=== PATIENT | male | born 1955 | race Caucasian/White ===

== ENCOUNTER 2016-09-08 21:34 | Emergency (ER) | payer MEDICAID, MEDICARE ==
[~2016-09-08 21:34] MED LIST: ACET500L27 PO; ASCO100089 PO; ASPI325T32 PO; CYAN50006 SL; DIAZ10TA3 PO; ESCI5TAB10 PO; FERR-74 PO; GABA-504 PO; ONDA8TAB7 SL; OXYC-474 PO; OXYM30SP18 NS; POLY17PO2 PO; PRED5DRO6 BOTH_EYES; PROC-4 PO; RANI150C4 PO; SODI51CR8 DENTAL; ZINC50TA56 PO; [UNRECOGNIZED DRUG - CODE] PO; calcium carbonate PO
[2016-09-16] MEDS ORDERED: LORA1TAB PO (11:26)
[2016-09-26] MEDS ORDERED: DIAZ5TAB3 PO (17:56)
[2016-10-07] MEDS ORDERED: MS15TCR PO (12:36)
[2016-10-07] MEDS ORDERED: OXYC-474 PO (12:36)
[2016-10-23] MEDS ORDERED: ACET-171 PO (08:38)
[2016-12-01] MEDS ORDERED: MORP30CA17 PO (13:49)
[2016-12-29] MEDS ORDERED: MED PLUS 2.0 PO (09:10)
[2016-12-29] MEDS ORDERED: DIF100A PO (09:10)
[2017-02-03] MEDS ORDERED: HYDR4TAB PO (14:22)
[2017-02-13] MEDS ORDERED: OMEP20CA11 PO (09:13)
== END 2016-09-08 22:01 | disposition left against medical advice (07) ==
LOC: SED 21:34
DX: Z53.29 Procedure and treatment not carried out because of patient's decision for other reasons (principal)

== ENCOUNTER 2016-12-07 10:04 | Inpatient (IN) | payer MEDICARE, MEDICAID ==
[~2016-12-07] VITALS: Ht 182.9 cm; Wt 67.0 kg
[~2016-12-07 10:04] MED LIST changes: +ACET-171 PO; -ACET500L27 PO; -CYAN50006 SL; -DIAZ10TA3 PO; +DIAZ5TAB3 PO; -FERR-74 PO; +MORP30CA17 PO; -calcium carbonate PO
[2016-12-07 10:09] VITALS: BP 118/76; PULSE 101; RESP 22; O2SAT 97
--- NOTE | 2016-12-07 10:21 | ED.REPORT ---
HPI-General Illness Date of Service Dec 07, 2016 ED Provider: Dr. Hillman Pt is a 61 year old male on chemo therapy with a hx of throat cancer presenting to the ED complaining of lightheadedness onset today. Associated symptoms include severe throat pain onset 5 days ago, hematemesis (a couple tablespoons each episode, about 18 episodes total),constipation, decreased appetite, worsening abdominal pain and indigestion. Denies cough, black or tarry stool. Pt reports that he fell several times today due to the lightheadedness, but denies any injury. He states that he has been unable to clear his throat. He describes the emesis as half dark red or brown, and half bile. Nursing Notes Stated Complaint: SICK SINCE RADIATION ON 12/03/16 Chief Complaint: General Complaint Nursing Notes Reviewed: Yes Allergies: Coded Allergies: No Known Allergies (Unverified , 12/07/16) Scheduled Ascorbic Acid (Vitamin C) 1,000 Mg Tab.chew 1,000 MG PO DAILY Aspirin (Aspirin) 325 Mg Tablet 325 MG PO DAILY Diazepam (Diazepam) 5 Mg Tablet 10 MG PO HS Escitalopram Oxalate (Escitalopram Oxalate) 5 Mg Tablet 5 MG PO DAILY Gabapentin (Gabapentin) 400 Mg Capsule 400 MG PO HS Morphine Sulfate ER (Morphine Sulfate ER) 30 Mg Capsule 30 MG PO BID Multivits-Min/FA/K/Lycopene (One-A-Day Men's 50+ Tablet) 1 Each Tablet 1 TABLET PO DAILY Polyethylene Glycol 3350 (Polyethylene Glycol 3350) 17 Gm Powd.pack 17 GM PO DAILY Prednisolone Acetate (Prednisolone Acetate) 5 Ml Drops.susp 5 ML BOTH_EYES QID Ranitidine (Ranitidine) 150 Mg Capsule 150 MG PO BID Sodium Fluoride (Denta 5000 Plus) 51 Gm Cream..g. 51 GM DENTAL DAILY Zinc Amino Acid Chelate (Zinc) 50 Mg Tablet 50 MG PO DAILY Scheduled PRN Acetaminophen (Acetaminophen) 500 Mg Tablet 500 MG PO Q6H PRN PRN For Pain Ondansetron ODT (Zofran ODT) 8 Mg Tablet 8 MG SL Q8H PRN PRN For Nausea Oxycodone (Roxicodone) 5 Mg Tablet 5 MG PO Q6H PRN PRN For Pain Oxymetazoline HCl (Nasal [place] Sinus) 30 Ml [place] 30 ML NS PRN For Congestion Prochlorperazine Maleate (Compazine) 10 Mg Tablet 10 MG PO Q4H PRN PRN For Nausea General Time Seen by MD: 10:21 Chief Complaint Other (Lightheadedness) Hx Obtained From: Patient Arrived By: Walk-in Sudden in Onset?: No Onset Occurred: 5 days ago Symptom Duration: Since onset Location: : Abdomen: Neck (Throat) Quality: Painful Severity: Current: Moderate Severity: Maximum: Severe Recent Healthcare: Recent doctor visit, Recent hospitalization Similar Sx Previous: No Past Medical History Past Medical History Notes: Oncology: Dr. Homer Aceves for radiation oncology Dr. 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 Physical Exam Vital Signs Vital Signs Date Time Temp Pulse Resp B/P Pulse Ox O2 Delivery O2 Flow Rate FiO2 12/07/16 12:34 37.2 15 140/64 100 Room Air 12/07/16 10:09 36.7 101 22 118/76 97 Room Air Initial VS: Reviewed Head / Eyes: Atraumatic, Normocephalic, PERRL Neck: Supple, Non-tender, Full range of motion Respiratory: Breath sounds normal, Clear to auscultation, No respiratory distress Cardiovascular: Regular rate & rhythm, Heart sounds normal, Intact distal pulses Neurologic: Alert, Oriented, Nonfocal Psychiatric: Mood/affect normal, Behavior normal, Normal thought content General/Constitutional: Awake, Alert Distress / Hydration: Positive: Distress moderate Appearance / Presentation: Positive: Cachectic, Pale Thin ENT: Atraumatic, Airway patent Oropharynx no active bleeding or obvious mass. Abdomen: Atraumatic, Soft, No guarding, No rebound Tenderness/Guarding/Rebound: Positive: Tender epigastric Skin: Warm, Dry, Intact Radiation sequela on neck. Interpretation & Diagnostics Lab Results Interpretation Result Diagram: 12/07/16 1305 12/07/16 1110 Test 12/07/16 11:10 12/07/16 13:05 White Blood Count 5.8th/mm3 (3.8-10.1) Red Blood Count 4.09mil/mm3 (4.40-5.80) Mean Corpuscular Volume 88.8fL (81-100) Mean Corpuscular Hemoglobin 31.3pg (27.0-35.0) Mean Corpuscular Hemoglobin Concent 35.3% (32.0-37.0) Red Cell Distribution Width 15.7% (12.3-15.4) Platelet Count 184bil/L (150-400) Neutrophils (%) (Auto) 84.3% (40-74) Lymphocytes (%) (Auto) 6.5% (14-46) Monocytes (%) (Auto) 8.6% (4-12) Eosinophils (%) (Auto) 0.2% (0-5) Basophils (%) (Auto) 0.2% (0-3) Prothrombin Time 12.1sec (8.1-12.5) Prothromb Time International Ratio 1.13ratio Sodium Level 135mEq/L (134-144) Potassium Level 3.1mEq/L (3.5-5.2) Chloride Level 93mEq/L (97-108) Carbon Dioxide Level 20mmol/L (18-29) Blood Urea Nitrogen 27mg/dL (8-27) Creatinine 0.96mg/dL (0.76-1.27) Estimat Glomerular Filtration Rate 84mL/min (>59) Glucose Level 151mg/dL (60-99) Calcium Level 10.1mg/dL (8.5-10.1) Magnesium Level 1.8mg/dL (1.6-2.6) Total Bilirubin 1.0mg/dL (0.0-1.2) Aspartate Amino Transf (AST/SGOT) 14U/L (0-50) Alanine Aminotransferase (ALT/SGPT) 12U/L (0-44) Alkaline Phosphatase 59U/L (25-160) Total Protein 7.8g/dL (6.4-8.4) Albumin 4.6g/dL (3.4-5.0) Hold Coleman Top Tube Received (Received) Hemoglobin 11.8g/dL (13.8-17.2) Hematocrit 33.9% (41.0-50.0) ECG Interpretation ECG Interpretation: RBBB. Time: 10:58 Interpreted by: ED physician Normal ECG Interpretation: Normal rate (92), Normal sinus rhythm X-Ray Chest Interpretation Chest Xray Interpretation: IMPRESSION: No acute process. Dictated by: Marques Brower M.D. on 12/07/2016 at 10:53 View: Portable, 1 view Interpretation / Wet Read by: Interpret - Radiologist CT C-Spine Interpretation IMPRESSION: 1. Diffuse submucosal edema, consistent with pharyngitis, presumably secondary to radiation therapy. 2. No change in asymmetry of the tongue base, consistent with posttreatment sequelae. Dictated by: Marques Brower M.D. on 12/07/2016 at 12:53 Study type: CT with contrast Interpretation / Wet Read by: Interpret - Radiologist Re-Eval/Medical Decision Med Decision/Clinical Course Patient currently undergoing chemotherapy and radiation with multiple episodes of hematemesis in the last day, symptoms could represent gastritis and upper GI bleeding. PPI drip initiated, patient is hemodynamically stable, GI consulted and agrees to see the patient. Will be admitted. Time of Eval: 12:45 Patient Status: Condition improved Re-Evaluation/Progress Note: Discussed plan for admission. Pt understands and agrees. Consultation #1: Referral / Consult Name: Filipe Ngo MD Call Returned at: 13:05 Note: Oncology. Agrees with plan for admission. Consultation #2: Referral / Consult Name: Hari Leigh MD Call Returned at: 13:24 Diesel Service Apprentice: Agrees with plan Note: GI. Give the pt a GI cocktail, treat the constipation, continue PPI ggt, oral GI cocktail or sucralfate liquid as needed. Will plan to see the pt in the morning and discuss the possibility of endoscopy. Consultation #3: Referral / Consult Name: Nasim Randhawa DO Consulted With: Hospitalist Call Returned at: 14:00 Diesel Service Apprentice: Will see patient, Agrees with plan, Accepts admit Counseled Regarding: Diagnosis, Lab results, Need for follow-up, When/why to return to ED Discharge & Departure Primary Impression: Hematemesis Disposition: ADMITTED TO HOSPITAL Discharge Condition All VS Reviewed: Yes Condition: Improved Referrals: Justo Bedoya MD (PCP) Chivo Valadez MD Scribe Attestation Portions of this note were transcribed by Geni Patricio. I, Dr. Hillman personally performed the history, physical exam and medical decision-making; I reviewed and confirmed the accuracy of the information in the transcribed note. Signed by: Tabby Armstrong, 12/07/2016 at 1400. copies to: Justo Bedoya MD; Chivo Valadez MD, Timothy S DO Dec 07, 2016 10:21 GENI PATRICIO Dec 07, 2016 10:31
[2016-12-07] MEDS ORDERED: 0.9% Sodium Chloride 1,000 ML IV ONE (10:33)
[2016-12-07] MEDS ORDERED: Pantoprazole 4 mg/mL 10 mL Inj IVPUSH ONE (10:35)
[2016-12-07] MEDS ORDERED: Pantoprazole Inj 80 MG, Pharmacy To Mix 1 EA in 0.9% Sodium Chloride 80 ML IV ONE ×2 (10:35)
--- NOTE | 2016-12-07 10:55 | DRSVH ---
PROCEDURE: X-RAY CHEST ONE VIEW, PORTABLE ([id number]) INDICATIONS: vomiting TECHNIQUE: One view of the chest was acquired. COMPARISON: None. FINDINGS: Surgical changes and devices: Left arm PICC is present, tip of which is in the mid SVC. Lungs and pleura: No pleural effusions or pneumothorax. Lungs are clear. Mediastinum: Mediastinal contours appear normal. Heart size is normal. Bones and chest wall: No suspicious bony lesions. Overlying soft tissues appear unremarkable. IMPRESSION: No acute process. Dictated by: Marques Brower M.D. on 12/07/2016 at 10:53 Approved by: Marques Brower M.D. on 12/07/2016 at 10:54
[2016-12-07] MEDS: Ondansetron 2 mg/mL 2 mL Inj IVPUSH PRN ×5 (11:11→20:31)
[2016-12-07 11:29] LABS: BASOPHILS % (AUTO) 0.2 % (0-3); EOSINOPHILS % (AUTO) 0.2 % (0-5); MONOCYTES % (AUTO) 8.6 % (4-12); Mean Corpuscular Hemoglobin 31.3 pg (27.0-35.0); Mean Corpuscular Volume 88.8 fL (81-100); NEUTROPHILS % (AUTO) 84.3 % (40-74); Platelet Count 184 bil/L (150-400)
[2016-12-07 11:51] LABS: INR 1.13 ratio
[2016-12-07 11:57] LABS: Magnesium 1.8 mg/dL (1.6-2.6)
[2016-12-07 12:34] VITALS: BP 140/64; RESP 15; O2SAT 100
--- NOTE | 2016-12-07 12:57 | DRSVH ---
PROCEDURE: CT NECK SOFT TISSUES WITH CONTRAST ([id number]) INDICATIONS: neck pain, vomiting blood, throat CA TECHNIQUE: After the administration of intravenous contrast, 3.0 mm axial sections acquired from the sella to th e aortic arch. Additional oblique axial 3.0 mm sections acquired through the pharynx. 3 mm thick co aleena reformats were generated. For radiation dose reduction, the following was used: automated exp osure control. COMPARISON: [facility], CT, CT NECK SOFT TISSUE W CON, 10/28/2016, 15:41. FINDINGS: Image quality: Excellent. Lymph nodes: No enlarged lymph nodes seen throughout the neck. Vessels: Visualized vasculature appears patent. Neck spaces: Submucosal low density is seen within the oropharynx and hypopharynx, increased from th e prior examination. The oropharynx, nasopharynx, and pharynx are otherwise within normal limits. The vocal cords, false vocal cords, pyriform sinuses and epiglottis are within normal limits. There is a symmetrical defect involving the right tongue base, as before. Extramucosal spaces appear unremarkab le. Glands: The parotid and submandibular glands appear normal. Thyroid gland is within normal limits. Miscellaneous: Visualized brain and orbits appear normal. Lung apices appear clear. Moderate apica l emphysema is present bilaterally. Superficial soft tissues appear normal. Bones: No suspicious bony lesions. Visualized sinuses and mastoids appear unremarkable. IMPRESSION: 1. Diffuse submucosal edema, consistent with pharyngitis, presumably secondary to radiation therapy. 2. No change in asymmetry of the tongue base, consistent with posttreatment sequelae. Dictated by: Marques Brower M.D. on 12/07/2016 at 12:53 Approved by: Marques Brower M.D. on 12/07/2016 at 12:56
[2016-12-07] MEDS ORDERED: Promethazine Inj 25 MG in 0.9% Sodium Chloride-Pha MIX 100 ML IV ONE (13:30)
[2016-12-07] MEDS ORDERED: MORP-33 PO (13:43)
--- NOTE | 2016-12-07 14:21 | PCM.HPMED ---
Subjective Date of Service Dec 07, 2016 Primary Provider: Admitting Physician: Primary Care Physician: Justo Bedoya MD Attending Physician: Admit Status: From the Emergency Department Chief Complaint: Dizziness, decrease by mouth intake, hematemesis History of Present Illness: 61 yo male with a significant hx of stage LISSETTE squamous cell carcinoma of the right oropharynx now presenting sx of lightheadedness, n/v - hematemesis that began about 1 week ago with episodes dark brown/red vomitus - also with dysphagia and hx of GERD. Now noting worsening GERD sx over the last 1 week - no specific cp/sob/f/sick contacts/diarrhea/ no urinary sx. No prev issues with GERD only rarely used meds as needed. Does have hx of constipation and takes miralax intermittently. Lost 75 lbs in 6 mos prior to dx of throat cancer - last chemo/radiation was last week with Dr. Coronel, undergoing weekly cisplatin and taxol after his induction chemo. recently having worsenign sx of odynophagia, mucositis, and wt loss and Dr. Coronel inc MS contin to 30mg BID. Also report episodes of fall while attempting to make it to bathroom without head injury or state injuries. no alcohol/tob/illicit rx use. Review of Systems: complete ROS unremarkable unless stated in HPI Allergies Coded Allergies: No Known Allergies (Unverified , 12/07/16) Home Medications Reviewed and ordered Ascorbic Acid (Vitamin C) 1,000 Mg Tab.chew 1,000 MG PO DAILY Aspirin (Aspirin) 325 Mg Tablet 325 MG PO DAILY Diazepam (Diazepam) 5 Mg Tablet 10 MG PO HS Escitalopram Oxalate (Escitalopram Oxalate) 5 Mg Tablet 5 MG PO DAILY Gabapentin (Gabapentin) 400 Mg Capsule 400 MG PO HS Morphine Sulfate ER (Morphine Sulfate ER) 30 Mg Capsule 30 MG PO BID Multivits-Min/FA/K/Lycopene (One-A-Day Men's 50+ Tablet) 1 Each Tablet 1 TABLET PO DAILY Polyethylene Glycol 3350 (Polyethylene Glycol 3350) 17 Gm Powd.pack 17 GM PO DAILY Prednisolone Acetate (Prednisolone Acetate) 5 Ml Drops.susp 5 ML BOTH_EYES QID Ranitidine (Ranitidine) 150 Mg Capsule 150 MG PO BID Sodium Fluoride (Denta 5000 Plus) 51 Gm Cream..g. 51 GM DENTAL DAILY Zinc Amino Acid Chelate (Zinc) 50 Mg Tablet 50 MG PO DAILY Scheduled PRN Acetaminophen (Acetaminophen) 500 Mg Tablet 500 MG PO Q6H PRN PRN For Pain Ondansetron ODT (Zofran ODT) 8 Mg Tablet 8 MG SL Q8H PRN PRN For Nausea Oxycodone (Roxicodone) 5 Mg Tablet 5 MG PO Q6H PRN PRN For Pain Oxymetazoline HCl (Nasal [place] Sinus) 30 Ml [place] 30 ML NS PRN For Congestion Prochlorperazine Maleate (Compazine) 10 Mg Tablet 10 MG PO Q4H PRN PRN For Nausea PMH stage LISSETTE squamous cell carcinoma of the right oropharynx GERD Depression Anxiety Psoriasis Hypertension Chronic back pain Surgical History Corneal transplant Right knee arthroscopy Medial meniscus to me Chondroplasty of patellofemoral joint Left cubital tunnel release Anterior transposition of the ulnar nerve Family History Father, heart disease, rheumatoid arthritis Mother: Diabetes Siblings: Stroke hypertension, rheumatoid arthritis Social History Hx Alcohol Use: No Hx Substance Use: No Hx Tobacco Use: No Smoking Status: Former Smoker Exam Vital Signs Vital Sign - Last Date Time Temp Pulse Resp B/P Pulse Ox O2 Delivery O2 Flow Rate FiO2 12/07/16 12:34 37.2 15 140/64 100 Room Air 12/07/16 10:09 101 Exam Gen.: No acute distress, alert and oriented, pleasant HEENT: Normocephalic/atraumatic, pupils equal round react to light and accommodation,EOMI, Anicteric sclera, erythematous mucosa, dry blood noted Neck: No JVD, lymphadenopathy, no thyromegaly Cardiovascular: No rubs clicks murmurs or gallops, regular rate Respiratory: Clear to auscultation bilaterally no wheezes rales or rhonchi, good historian effort GI: Soft, mild epigastric tenderness, no rigidity or guarding, epigastric regional clicking/mass noted with palpation no rebound tenderness Extremities: No clubbing cyanosis or edema, warm, sensation intact Neurologic, muscle strength 5 out of 5 in upper and lower extremities bilaterally, creatinine nerves II-12 grossly intact, DTRs 2+ at patellar and brachial radialis and bicipital, sensation intact Psych: Mood appropriate, affect appropriate, no tangential thought or speech Lab and Diagnostics Result Diagram: 12/07/16 1305 12/07/16 1110 12-lead ECG Right bundle-branch block, no acute ischemic changes Assessment & Plan 61 yo man with stage IV right oropharyngeal squamous cell carcinoma, hypertension, depression, and anxiety who presented to the ED with hematemesis, weakness and decreased oral intake for last 5-7 days #Hematemesis/dysphagia likely secondary to history of Right Oropharyngeal squamous cell carcinoma - Dr Ngo consulted from ER, patient's oncologist is Dr Coronel - plan for symptomatically management with recommendations from Dr. Leigh of GI to start protonix strip - GI to evaluate for possible endoscopy tomorrow - NPO for now given failed speech swallow eval - Pain control with IV Dilaudid, can restart Roxicodone and MS Contin when tolerating by mouth meds - This is lidocaine, when necessary nausea medications and pain control as above - Monitor oxygen saturations, keep oxygenation above 92% with supplemental oxygen as needed. Please contact physician if becoming hypoxic #Depression - Will resume home Escitalopram when tolerating by mouth #HTN, chronic. -No home BP meds currently being taken, will consider when necessary Pain Evaluation: Other (actually titrating pain) GI Prophylaxis: Proton Pump Inhibitor VTE Prophylaxis Indicated: Contraindicated (bleeding) Resuscitation Status: CPR: Attempt Resuscitation Time spent 60 minutes spent with admission and evaluation, greater than 50% time spent face -to-face counseling Nasim Randhawa DO Dec 07, 2016 14:21
[2016-12-07] MEDS ORDERED: Polyethylene Glycol (PEG) 17 Gm Powder PO PRN (14:30)
[2016-12-07] MEDS ORDERED: Alum-Mag Hydrox-Simeth 30 mL Suspension PO PRN (14:30)
[2016-12-07 14:37] VITALS: BP 128/63; PULSE 84; RESP 15; O2SAT 98
--- NOTE | 2016-12-07 14:53 | NUR ---
Admit Pt arrived from ED at 1453 via stretcher. Pt A&Ox3 and able to transfer to the bed SBA. Pt's pain is a 10/10 in his throat. Pt is nauseated and received medication in the OR and states that it feels better. Pt on RA and Protonix is currently running thru his PICC. Admit RN did the admit and med req.
[2016-12-07 14:58] VITALS: BP 137/69; PULSE 72; RESP 18; O2SAT 99
[2016-12-07] MEDS ORDERED: HYDROmorphone 0.5 mg/0.5 mL iSecure Syringe IVPUSH PRN (15:25)
[2016-12-07] MEDS ORDERED: Potassium Chloride Inj 40 MEQ in Dextrose 5% 250 ML IV ONE (15:50)
--- NOTE | 2016-12-07 16:01 | NUR ---
RN SWALLOW EVAL Pt failed rn swallow eval as he had a difficult time swallowing the applesauce. He stated "it feels like it is caught in my throat." MD aware of failure of swallow eval however ordered ice chips to help relieve discomfort and burning sensation is pts mouth. Pt states that he was given magic mouth in the ER and it did not work. Care conts
[2016-12-07] MEDS: Dextrose 5% 0.9% NaCl 1,000 ML IV SCH (16:15)
[2016-12-07] MEDS: PrednisoLONE 1% 1 mL Ophthalmic Suspension BOTH_EYES SCH ×2 (16:49→21:30)
--- NOTE | 2016-12-07 17:08 | NUR ---
STEPHANIE explained and signed. Copy of STEPHANIE and Medicare self administered medication information given to pt.
[2016-12-07] MEDS: HYDROmorphone 0.5 mg/0.5 mL iSecure Syringe IVPUSH PRN (20:01)
[2016-12-07 20:28] VITALS: BP 126/68; PULSE 73; RESP 16; O2SAT 97
[2016-12-07] MEDS: Pantoprazole Inj 80 MG in 0.9% Sodium Chloride 80 ML IV SCH (20:45)
[2016-12-07 20:47] VITALS: PULSE 68
--- NOTE | 2016-12-07 23:05 | NUR ---
Telemetry Pt had 8 beats of v tach. Reported to MD via cookpage. Also reported that pt had a potassium rider this evening. Will cont to monitor
[2016-12-08] VITALS (13 sets, daily range): BP systolic 93–149; BP diastolic 49–83; PULSE 57–83; RESP 14–20; O2SAT 95–100
[2016-12-08] MEDS: HYDROmorphone 0.5 mg/0.5 mL iSecure Syringe IVPUSH PRN ×6 (00:26→21:27)
[2016-12-08 00:44] LABS: BASOPHILS % (AUTO) 0.5 % (0-3); EOSINOPHILS % (AUTO) 0.8 % (0-5); MONOCYTES % (AUTO) 13.6 % (4-12); Mean Corpuscular Hemoglobin 31.4 pg (27.0-35.0); Mean Corpuscular Volume 90.9 fL (81-100); NEUTROPHILS % (AUTO) 72.3 % (40-74); Platelet Count 141 bil/L (150-400)
--- NOTE | 2016-12-08 01:31 | NUR ---
Pt able to void 200cc of bernadine urine Denies lightheadedness. States that he feels "Much better." BP 149/81 Will cont to monitor
[2016-12-08] MEDS: Ondansetron 2 mg/mL 2 mL Inj IVPUSH PRN ×3 (03:19→22:12)
[2016-12-08] MEDS: Dextrose 5% 0.9% NaCl 1,000 ML IV SCH (03:25)
[2016-12-08 03:36] LABS: BASOPHILS % (AUTO) 0.7 % (0-3); EOSINOPHILS % (AUTO) 1.9 % (0-5); MONOCYTES % (AUTO) 12.6 % (4-12); Mean Corpuscular Hemoglobin 31.5 pg (27.0-35.0); NEUTROPHILS % (AUTO) 69.9 % (40-74); Platelet Count 122 bil/L (150-400)
[2016-12-08] MEDS: Pantoprazole Inj 80 MG in 0.9% Sodium Chloride 80 ML IV SCH ×2 (06:09→16:30)
[2016-12-08] MEDS: PrednisoLONE 1% 1 mL Ophthalmic Suspension BOTH_EYES SCH ×4 (07:22→21:33)
[2016-12-08] MEDS ORDERED: Potassium Chloride Inj 40 MEQ in Dextrose 5% 250 ML IV ONE (07:40)
[2016-12-08] MEDS: Polyethylene Glycol (PEG) 17 Gm Powder PO SCH (08:26)
[2016-12-08] MEDS ORDERED: Sodium Chloride LOK Flush 10 mL Syringe IVFLUSH PRN ×2 (09:00)
--- NOTE | 2016-12-08 10:27 | NUR ---
Case Management: IMM given and explained to pt at 10:20. Betty HUGHES RN
--- NOTE | 2016-12-08 10:38 | NUR ---
Evaluation completed. Please go to "Notes" then click on "Assessments and Notes" (bottom left corner of screen). Then select appropriate discipline tab on top of screen.
--- NOTE | 2016-12-08 10:56 | NUR ---
Evaluation completed. Please go to "Notes" then click on "Assessments and Notes" (bottom left corner of screen). Then select appropriate discipline tab on top of screen.
--- NOTE | 2016-12-08 11:19 | PCM.PNMED ---
Subjective Date of Service Dec 08, 2016 Subjective pt still with considerable 9-10/10 pain this AM, unable to swallow - moderately tolerating ice chips for soothing - no fevers, chills, chest pain. Dilaudid overnight not sufficient for pain, we will add a fentanyl 25 g patch today and have palliative care see the patient well. Call Dr. Mittal, regarding bout steroids for pharyngeal inflammation/comfort Exam Vital Signs Vital Sign - Last Date Time Temp Pulse Resp B/P Pulse Ox O2 Delivery O2 Flow Rate FiO2 12/08/16 10:52 36.8 68 20 130/70 99 Room Air Intake and Output 12/07/16 12/07/16 12/08/16 Cumulative From/Thru 15:00 23:00 07:00 12/07/16 10:09 - 12/08/16 05:43 Intake Total 1000 ml 465 ml 1004 ml 2469 ml Output Total 200 ml 200 ml Balance 1000 ml 465 ml 804 ml 2269 ml Intake Oral 0 ml 0 ml IV Total 1000 ml 465 ml 1004 ml 2469 ml Output Urine Total 200 ml 200 ml Exam Gen.: No acute distress, alert and oriented, pleasant HEENT: Normocephalic/atraumatic, pupils equal round react to light and accommodation,EOMI, Anicteric sclera, erythematous mucosa, dry blood noted Neck: No JVD, lymphadenopathy, no thyromegaly Cardiovascular: No rubs clicks murmurs or gallops, regular rate Respiratory: Clear to auscultation bilaterally no wheezes rales or rhonchi, good historian effort GI: Soft, mild epigastric tenderness, no rigidity or guarding, epigastric regional clicking/mass noted with palpation no rebound tenderness Extremities: No clubbing cyanosis or edema, warm, sensation intact Neurologic, muscle strength 5 out of 5 in upper and lower extremities bilaterally, creatinine nerves II-12 grossly intact, DTRs 2+ at patellar and brachial radialis and bicipital, sensation intact Psych: Mood appropriate, affect appropriate, no tangential thought or speech IVs and Medications Medications Reviewed: Medications were reviewed in detail Lab and Diagnostics Result Diagram: 12/08/1631412/08/16314 12-lead ECG Right bundle-branch block, no acute ischemic changes Assessment & Plan 61 yo man with stage IV right oropharyngeal squamous cell carcinoma, hypertension, depression, and anxiety who presented to the ED with hematemesis, weakness and decreased oral intake for last 5-7 days #Hematemesis/dysphagia likely secondary to history of Right Oropharyngeal squamous cell carcinoma with subsequent radiation mucositis - Dr Ngo consulted from ER, patient's oncologist is Dr Coronel - plan for symptomatically management with recommendations from Dr. Leigh of GI to start protonix strip - GI to evaluate for possible endoscopy today, appreciate recommendations - NPO for now given failed speech swallow eval - Pain control with IV Dilaudid, can restart Roxicodone and MS Contin when tolerating by mouth meds - until then had added fentanyl 25 g and appreciate palliative care management, consulted today - Monitor oxygen saturations, keep oxygenation above 92% with supplemental oxygen as needed. Please contact physician if becoming hypoxic #Depression - Will resume home Escitalopram when tolerating by mouth #HTN, chronic. At goal presently -No home BP meds currently being taken, will consider when necessary GI Prophylaxis: Proton Pump Inhibitor VTE Mechanical Devices: Intermittant Pneumatic CD Resuscitation Status: CPR: Attempt Resuscitation Time spent 30 minutes spent with evaluation and management including coordination of care Attending Statement Disposition: Inpatient given likely staying greater then 2 midnights given severity of symptoms, discharged pending clinical improvement and stabilization of by mouth intake Nasim Randhawa DO Dec 08, 2016 11:19
--- NOTE | 2016-12-08 12:41 | NUR ---
Palliative care note D/A: Referral for palliative care services received today from DR. Randhawa for goals of care and symptom management. Note that pt has a spouse Luisana Moreno at [phone] and dtr Tarsha Moreno at [phone]. Chart notes indicate a great deal of contact with pt dtr but none to little with spouse. [facility] Pt spouse is essentially no participatory in pt care. She works at [employer] and there has been some concern among the medical team that she may be involved with pt/understand his diagnosis and needs. 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 There is some concern that pt may not understand all issues presented to him, which is most likely impacted by his nutritional status. Note that pt had experienced symptoms for about one year prior to dx of throat cancer around Aug 2016. He was subsisting on milk and Ensure alone and had lost about 75 pds. Pt regained some weight and now, according to oncology notes, has lost 15 pds since initiation of chemo/rad trx. Pt has recently been receiving speech therapy in acute care, who notes that he has experienced limited ability to swallow for two weeks and has also, during the same time period, been choking on water. This is felt to be a side effect of his radiation treatment. '' Pt dtr lives in [place] and attempts to help support her father as much as she can. There are past notes indicating referrals to [facility] for this pt but Antony notes that family/pt has not been able to follow through. Dr. Gallardo to consult. P: Palliative care to follow. Isaura MARIO, [facility]
--- NOTE | 2016-12-08 14:22 | PCM.CONPAL ---
Date of Service Dec 08, 2016 Date of Hospital Admission: Dec 07, 2016 at 14:19 Date of Palliative Consult: Dec 08, 2016 Requesting Provider: Nasim Randhawa DO Comment: Onologist- Dr. Coronel, RD-onc-Dr. Aceves, PCP Dr. Bedoya Reason Palliative Care Consult: Pain, Other Symptoms, Goals of Care Discussion Hospital Unit @time of consult: Orthopedic/Surgical Care Palliative Care Recommendation Summary of palliative recommendations: -Symptom management (Pain/other) PAIN- will increase his hydromorphone dosing. Will need to wait 1-2 days to determine if fentanyl patch will be adequate. Will increase his gabapentin to 600 mg HS. INSOMNIA-Will try adding mirtazapine 15 mg HS. Continue on his escitalopram which at this point is low dose. VMW-[id number]-qy above. CONSTIPATION- start regular dosing of senna and or miralax STOMATITIS-unclear regarding swab-- no results and can't find order. Cosnider treating empirically with antiviral. -DPOA/Advanced Directives/POLST-DPOAHC =daughter Tarsha. He does not think his has the capacity and this is supported by Antony WHITE-oncology -Family/emotional support-limited. he is isolated by his anx/depression/panic -Spiritual support-not interested Patient Goals: 1. Patient wants to be told the truth about his/her illness, even if it is unpleasant. YES 2. Patient would like to be told prognosis when it can be predicted, to better guide treatment decisions.YES 3. Patient would choose quality of life over quantity of life. YES. 4. Patient would request that comfort care take priority over cognitive/mental confusion. YES Problems: End of Life Preferences He wishes FULL CODE status but states if truly EOL he is not interested in being prolonged with CPR/VENT Goals of Care He identifies wanting aggressive treatment including chemo radiation which he states he is only 1/2 way through He identifies that there are still things he wants to do but acknowledges his anx/depression is limiting him on this Disposition His plan is to go home but hopefully with better pain control. Resuscitation Status Resuscitation Status: CPR: Attempt Resuscitation POLST Updates/Changes Previous POLST?: No . Symptom management: Depression, Anxiety, Pain, Constipation Pt History History of Present Illness PALLIATIVE CARE CONSULTATION Request from Dr. Randhawa, Patient states his insurance company also recommended consultation. Onc- Dr. Coronel Rad-onc- Dr. Aceves PCP- Dr. Bedoya 61 yo patient with progressive sore throat and odynophagia with eval in July noting a large tonsillar mass. 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 He has lost 75-80 # since onset of sx in july. He has started chemo and rad tx with very good results but has been having worsened pain and continued weight loss. He has also had worsened constipation which he had been treating with miralax but with his acute illness of dehydration and pain issues he had stopped his usual miralax. To his knowledge his malignancy is curable and he is counting on this. He was treated with MS ER 15 mg BID that was increased to 30 mg BID about 1 week ago. He states he took 2 of the 15 mg doses on 2 separate occasions and noted no change- in pain or SE. he was feeling more poorly with more pain and nausea and he feared the meds making that worse so his essentially did not go up on his dose.He was switched to fentanyl patch this AM so unclear if any benefit yet..He knows he has active stomatitis. He states this was swabbed. Other sx: constipation depression/anx/panic and insomnia. States doesn't go out of the house and in general doesn't like people. Traz caused nightmares. Gets only a few hours of sleep from diazepam 10 mg HS but his is able to manage home and nothing "past that". He identifies his daughter Tarsha Moreno as DPOAHC ([phone]). She lives and works in [place] and travels extensively. He is unaware if he has an AD but he thinks he might.He is not aware of what it might say. He is interested in all aggressive measures as long as he has chance of decent recovery. He has 1 son in [place] and his has a son in [place]. Past Medical History Significant PMH Noted: HTN depression/anx/panic chronic insomnia GERD LBP Ty knee surgery exsmoker- 1/2 PPD and stopped 10 yrs ago exETOH- did drink 1+ 6pk per day- stopped 20 yrs ago FMHX- PGF- of colon CA age 55 Bro-1 and sister- 1 M- breast CA Social History Occupation: disabled-he states due to toxic exposure but I suspect due to anx/depression. Social Support: daughter. Living Situation: Lives with his of 44 yrs. Often Tarsha spends the night. Responsive Patient Symptoms Pain (minimum): Moderate Pain (maximium): Severe *Requires 72 Hour Followup Tiredness/Fatigue: Moderate Depression: Moderate Anxiety: Moderate Anorexia: Moderate (drinks ensure as much as tolerated to minimize weight loss) Shortness of Breath: None Constipation controlled with miralax Palliative Performance Scale PPS Patient Status: Current PPS Ambulation: Full, Reduced PPS Activity: Unable to do most activity PPS Self-Care: Full Self Care PPS Intake: Normal or reduced Performance Scale: 90% Allergy Allergies Reviewed: Yes (trazodone- severe nightmares) Medications Current Medications: Current Medications Ondansetron HCl 4 mg Q15M PRN IVPUSH Last administered on 12/07/16 13:45; Admin Dose 4 MG; Start 12/07/16 at 10:35; Stop 12/07/16 at 14:28; Status DC Morphine Sulfate 4 mg Q15MIN PRN IVPUSH Last administered on 12/07/16 12:16; Admin Dose 4 MG; Start 12/07/16 at 10:35; Stop 12/07/16 at 14:28; Status DC Diazepam 10 mg HS PO Last administered on 12/07/16 20:32; Admin Dose 10 MG; Start 12/07/16 at 21:00 Gabapentin 400 mg HS PO Last administered on 12/07/16 20:31; Admin Dose 400 MG; Start 12/07/16 at 21:00 Polyethylene Glycol 17 gm DAILY PO; Start 12/08/16 at 08:30 Prednisolone Acetate 1 drop QID BOTH_EYES Last administered on 12/08/16 12:54; Admin Dose 1 DROP; Start 12/07/16 at 16:30 Al Hydrox/Mg Hydrox/Simethicone 30 ml Q6H PRN PO Last administered on 12/08/16 00:32; Admin Dose 30 ML; Start 12/07/16 at 14:30 Ondansetron HCl 4 to 8 mg Q4H PRN IVPUSH Last administered on 12/08/16 07:22; Admin Dose 8 MG; Start 12/07/16 at 14:30 Senna 17.2 mg BID PRN PO; Start 12/07/16 at 14:30; Stop 12/08/16 at 08:36; Status DC Polyethylene Glycol 17 gm DAILY PRN PO; Start 12/07/16 at 14:30 Acetaminophen 650 mg Q4H PRN PO; Start 12/07/16 at 14:30 Morphine Sulfate 1-2 mg Q4H PRN IV; Start 12/07/16 at 14:30; Stop 12/07/16 at 15: 22; Status DC Hydromorphone HCl 0.5 mg 0.5 mg Q4H PRN IVPUSH Last administered on 12/07/16 15 :35; Admin Dose 0.5 MG; Start 12/07/16 at 15:25; Stop 12/07/16 at 19:52; Status DC Pantoprazole/ Sodium Chloride 100 ml @ 10 mls/hr Q10H IV Last administered on 06:09; Admin Dose 10 MLS/HR; Start 12/07/16 at 20:00 Lidocaine HCl as above Q4 PRN PO; Start 12/07/16 at 15:50 Dextrose/Sodium Chloride 1,000 ml @ 100 mls/hr Q10H IV Last administered on 12/08 03:25; Admin Dose 100 MLS/HR; Start 12/07/16 at 15:50; Stop 12/08/16 at 11: 49; Status DC Hydromorphone HCl 1 mg Q4H PRN IVPUSH Last administered on 12/08/16 13:41; Admin Dose 1 MG; Start 12/07/16 at 19:52 Fentanyl 1 patch Q3D TOPICAL Last administered on 12/08/16 09:04; Admin Dose 1 PATCH; Start 12/08/16 at 08:35 Senna 17.2 mg BID PO; Start 12/08/16 at 20:30 Scheduled Ascorbic Acid (Vitamin C) 1,000 Mg Tab.chew 1,000 MG PO DAILY Aspirin (Aspirin) 325 Mg Tablet 325 MG PO DAILY Diazepam (Diazepam) 5 Mg Tablet 10 MG PO HS Escitalopram Oxalate (Escitalopram Oxalate) 5 Mg Tablet 5 MG PO DAILY Gabapentin (Gabapentin) 400 Mg Capsule 400 MG PO HS Morphine Sulfate ER (Morphine Sulfate ER) 30 Mg Capsule 30 MG PO BID Multivits-Min/FA/K/Lycopene (One-A-Day Men's 50+ Tablet) 1 Each Tablet 1 TABLET PO DAILY Polyethylene Glycol 3350 (Polyethylene Glycol 3350) 17 Gm Powd.pack 17 GM PO DAILY Prednisolone Acetate (Prednisolone Acetate) 5 Ml Drops.susp 5 ML BOTH_EYES QID Ranitidine (Ranitidine) 150 Mg Capsule 150 MG PO BID Sodium Fluoride (Denta 5000 Plus) 51 Gm Cream..g. 51 GM DENTAL DAILY Zinc Amino Acid Chelate (Zinc) 50 Mg Tablet 50 MG PO DAILY Scheduled PRN Acetaminophen (Acetaminophen) 500 Mg Tablet 500 MG PO Q6H PRN PRN For Pain Ondansetron ODT (Zofran ODT) 8 Mg Tablet 8 MG SL Q8H PRN PRN For Nausea Oxycodone (Roxicodone) 5 Mg Tablet 5 MG PO Q6H PRN PRN For Pain Oxymetazoline HCl (Nasal Calcium Sinus) 30 Ml Calcium 30 ML NS PRN For Congestion Prochlorperazine Maleate (Compazine) 10 Mg Tablet 10 MG PO Q4H PRN PRN For Nausea Objective Findings Exam Vital Sign - Last Date Time Temp Pulse Resp B/P Pulse Ox O2 Delivery O2 Flow Rate FiO2 12/08/16 10:52 36.8 68 20 130/70 99 Room Air Intake and Output 12/07/16 12/07/16 12/08/16 Cumulative From/Thru 15:00 23:00 07:00 12/07/16 10:09 - 12/08/16 05:43 Intake Total 1000 ml 465 ml 1004 ml 2469 ml Output Total 200 ml 200 ml Balance 1000 ml 465 ml 804 ml 2269 ml Intake Oral 0 ml 0 ml IV Total 1000 ml 465 ml 1004 ml 2469 ml Output Urine Total 200 ml 200 ml General: Alert/Oriented x3, Other (Occasionally tearful, ) HEENT: PERRLA, EOMI, Scleral Anicteric, Mucous Membranes Dry, Other (mucosal ulcers soft palate) Heart: Regular Rate/Rhythm Lungs: Clear to Auscultation Abdomen: Soft Neuro: Cranial Nerve 3-12 Intact, Other (appropriate, decisional, gait not tested) Extremities: No Edema Lab/Diagnostics Lab and Imaging results reviewed in detail in EMR. Patient/Family Conference Members Present Family Members Present patient Medical Team Members Present? Juana ALVARADO PC Discussion/Goals of Care Discussion FAMILY UNDERSTANDING OF DISEASE: He believes his malignancy is curable and at this time is interested in aggressive treatment. DISEASE PROGRESSION/EVIDENCE OF DECLINE: He has had improvement in his cancer per Dr. Coronel's note. Concern is his dysphagia and wt loss but his albumin protein remain in normal range. SYMPTOM BURDEN: Pain is major issue now probably complicated by what I presume to be herpetic stomatitis. GOALS: He is hoping for a cure and back to his prior level of independence. HOPES/WORRIES: If pain is not able to be dealt with-he is not sure how long he will continue this. Time spent Total time 65 minutes; >50% face to face with patient and/or family, providing counselling regarding plans and recommendations, and in care coordination with his/her medical teams. I also spent an additional [ ] minutes counseling for advanced care planning with the patient/the patients family/the surrogate decision maker. copies to: Justo Bedoya MD; Chivo Valadez MD, Deborah A MD Dec 08, 2016 14:22
[2016-12-08] MEDS ORDERED: Lactated Ringer's 1,000 ML IV ONE (14:47)
--- NOTE | 2016-12-08 15:09 | NUR ---
NUTRITION ASSESSMENT: ASSESS: 61 YO M admitted for upper GI bleed and throat cancer. Per notes, pt has lost 75-80 lb over the past year mainly due to throat pain/decreased appetite. Per notes, pt was able to gain some weight back and then lost the weight again while undergoing chemo and radiation. Wt has ranged for 68 kg - 78 kg over the past 4 months per EMR review. ST has evaluated pt and placed him on a [place] thick Full Liquid diet. PO intake is 25% X 1 Meal. Palliative care is following. PMHX: right oropharyngeal CA, HTN, Depression LABS: Reviewed. K+ 3.3, Cr 0.70, Glu 114, Alb 3.8. MEDS: Reviewed. GI: 0 BM recorded CURRENT WTS: 67 kg. UBW 114.5kg (230lbs) DIET: Full liquid, [place] thick. PO 25% x 1 meal. EST. 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 NUTRITION INTERVENTION: 1.) Diet per ST 2.) Continue to send Chocolate Ensure all trays. 3.) Continue to encouraged possible PEG placement to help pt maintain nutritional status. MONITOR / EVAL: PO intake, weights, labs, nutrition status, POC. Continue to monitor per high nutrition risk guidelines.
--- NOTE | 2016-12-08 16:02 | NUR ---
Social Work-initial assessment: Data & Assessment: See initial assessment. Pt is a 61 y/o male who was admitted on 12/07/16 for Upper GI bleed and throat cancer per H&P. Pt's insurance is [employer] and PCP is Justo Bedoya MD. EMR Reviewed. Pt's readmission score is 5-high risk. SW met with pt to discuss discharge planning, SW role explained and initial assessment complete. Pt is alert and oriented x3. Pt resides at home with spouse in a two story home with three steps to enter and 14 steps on the inside where pt remains independent with basic ADLs. Pt has had HH with [facility] in the past. Patient has no SNF history. Pt has states that he has completed DPOA/ advanced directive and SW requested a copy. Pt has no watermaster care or VA benefits. SW discussed HH services and penitentiary care planning and patient chose [facility] if it is needed upon discharge. SW will follow patient to r/o HH. Pt's family to provide transport home at discharge. SW provided phone number and plan on white board in room. SW will continue to follow. Plan: Pt to likely discharge home no needs vs. home with HH. Pt's family is supportive. SW will transport home via POV. SW will continue to follow. Memo Ceballos LMSW, KEISHA Addendum: 12/08/16 at 1612 by MEMO CEBALLOS SS Amended: Links added.
--- NOTE | 2016-12-08 17:01 | PCM.HPANE ---
Patient Data Date of Service: Dec 08, 2016 Surgeon Admitting Provider:Nasim Randhawa DO Attending Provider:Nasim Randhawa DO Primary Care Physician:Justo Bedoya MD Other Provider: Reason for Visit Upper Gi Bleed, Throat Ca Ht/WT & BMI Height (Feet): 6 Height (Inches): 0.00 Weight (Kilograms): 67.000 Body Mass Index 20.00 Allergies Coded Allergies: No Known Allergies (Unverified , 12/07/16) Past Anesthesia History Anesthesia History: Denies:: Anesthesia Reactions, Fam Anesthesia Reaction, Fam Malignant Hypertherm, Malignant Hyperthermia Diabetes History Hx Diabetes?: No MRSA MRSA: No Medications Blood Thinner: Aspirin Hypertension Medication: No Reported Medications Morphine Sulfate ER 30 Mg [id number] Mg PO BID #60 CAPSULE Ref 0 12/01/16 Acetaminophen 500 Mg Anzvxc057 Mg PO Q6H PRN For Pain 10/23/16 Diazepam 5 Mg Muvgmj28 Mg PO HS #30 TABLET Ref 4 09/26/16 Prochlorperazine Maleate (Compazine)10 Mg Xgbkud88 Mg PO Q4H PRN For Nausea #30 TABLET Ref 4 08/26/16 Ondansetron ODT (Zofran ODT)8 Mg Tablet8 Mg SL Q8H PRN For Nausea #30 TABLET Ref 4 08/26/16 Prednisolone Acetate 5 Ml Drops.susp5 Ml BOTH_EYES QID 08/24/16 Gabapentin 400 Mg Jnnllhj505 Mg PO HS Ref 0 08/24/16 Sodium Fluoride (Denta 5000 Plus)51 Gm Cream..g.51 Gm DENTAL DAILY 08/24/16 Oxycodone (Roxicodone)5 Mg Tablet5 Mg PO Q6H PRN For Pain #60 TABLET Ref 0 08/24/16 Escitalopram Oxalate 5 Mg Tablet5 Mg PO DAILY 30 Days Ref 0 08/24/16 Oxymetazoline HCl (Nasal Many Sinus)30 Ml Spray30 Ml NS PRN For Congestion 08/24/16 Multivits-Min/FA/K/Lycopene (One-A-Day Men's 50+ Tablet)1 Each Tablet1 Tablet PO DAILY 08/24/16 Ascorbic Acid (Vitamin C)1,000 Mg Tab.chew1,000 Mg PO DAILY Ref 0 08/24/16 Zinc Amino Acid Chelate (Zinc)50 Mg Alqnkr71 Mg PO DAILY 08/24/16 Polyethylene Glycol 3350 17 Gm Powd.pack17 Gm PO DAILY 08/24/16 Aspirin 325 Mg Qftgea733 Mg PO DAILY #1 BOTTLE 08/24/16 Ranitidine 150 Mg Bqjwlvc127 Mg PO BID Ref 0 08/24/16 Discontinued Reported Medications Morphine Sulfate ER 30 Mg Htswqn37 Mg PO BID #60 12/07/16 Morphine Sulfate ER (MS Contin)15 Mg Tablet.er15 Mg PO BID #60 TABLET Ref 0 10/07/16 History History of ENT Problems?: Yes HEENT History: Positive for:: Cataracts Sinus Problem Denies:: Dysphagia (odynophagia) Other HEENT Pertinent History: Pt states he has throat cancer and its so painful, its hard to swallow, he has no saliva. Hx of Heart Problems?: No Cardiovascular History: Positive for:: Hypertension Denies:: Cardiac Surgery Chest Pain Congestive Heart Failure Coronary Artery Disease Edema Heart Murmur Irregular Heartbeat Pacemaker Thrombophlebitis Hx of Respiratory Problem?: Yes Respiratory History: Positive for:: Hemoptysis Denies:: Asthma COPD Chest Surgery Dyspnea Emphysema Pneumonia Tuberculosis Use of Inhalers / NEBS Other Resp Pertinent History: productive cough x1yr now Hx Neurologic Problems?: No Neurological History: Positive for:: Dizziness Headaches Denies:: Alzheimer's Disease CVA Dementia Parkinson's Disease Seizures TIA Hx of GI Problems?: Yes Gastrointestinal History: Positive for:: Diverticulitis Gastroesphageal Reflux (chronic) Hiatal Hernia Denies:: Gastrointestinal Bleeding Heartburn Hepatitis Rectal Bleeding Other GI Pertinent History: hematemesis Hx of Problems?: No Genitourinary History: Denies:: HX of Hemodialysis Kidney Stones Urinary Tract Infection HX of Peritoneal Dialysis: No Male Hx: Denies:: Prostate Problems Scrotal Mass Testicular Surgery Hx Musculoskeletal Problems?: Yes Musculoskeletal History: Positive for:: Back Injury Joint Replacement (knee) Musculoskeletal Trauma Hx of Psycho/Social Problems?: Yes Psycho Social History: Positive for:: Anxiety ("bigtime" ) Hx Depression (Lately it has been horrible ) Denies:: Bipolar Disorder Suicide Attempt Other Psych Pertinent History: Serious problem with depression recently Hx Surgeries?: Yes (bilat knee scopes, elbows, ) Hx Any Other Health Problems?: No Other History: Positive for:: Cancer (throat) Hospitalization (knees, elbows, wrists) Denies:: Thyroid Disease History Blood Transfusions: Denies:: Blood Transfuse Reaction Blood Transfusions Hx Diabetes: No Hx Alcohol Use: NoHx Substance Use: No Smoking Status: Former Smoker Have You Smoked inLast 12 mo: No Stop/Bang Treated for Sleep Apnea?: No Do You Have a CPAP Machine?: No S-Snoring: Do You Snore Loudly: No T-Tired: feel tired, fatigued: Yes O-Obsered: Observed not breath: No P-Blood Pressure: treated: No B- Body Mass Index > 35 kg/m2: No A- Age over 50: Yes N- Neck Large Circumference: No G- Gender Male: Yes YENI Total Score: 3 YENI Risk Assessment: Low Risk, <3 Yes YENI Category 2: Yes Risk Assessment Category Category 1A: Patient has history of documented sleep apnea, and HAS NOT received any narcotic, sedative or anesthesia administration during this stay. Category 1B: Patient has history of documented sleep apnea, and HAS received any narcotic , sedative or anesthesia administration during this stay Category 2: Patient has SUSPECTED Obstructive Sleep Apnea, and HAS received any narcotic , sedative or anesthesia administration during this stay. Category 3: Patient has SUSPECTED Obstructive Sleep Apnea and HAS NOT received narcotic, sedative or anesthesia administration during this stay. Category 4: Outpatient in Procedural Areas with known sleep apnea or who screen positive for High Risk via the STOP/BANG questionnaire. Exam Exam Vital Signs Vital Signs Date Time Temp Pulse Resp B/P Pulse Ox O2 Delivery O2 Flow Rate FiO2 12/08/16 14:04 37.1 74 20 140/75 99 Room Air 12/08/16 10:52 36.8 68 20 130/70 99 Room Air General Appearance: Alert, Oriented X3, Cooperative, No Acute Distress HEENT/AIRWAY: MP 3, Neck Movement (from), Mouth Opening (3), Other (<3) Lungs: Diminished Heart: Exam Unremarkable, Regular Rate/Rhythm, Normal S1, Normal S2, No Murmurs /Rubs/Gallops Meds/Labs/Diagnostics Admission Meds Current Medications Diazepam (Valium) 10 mg HS PO Last administered on 12/07/16 20:32; Start at 21:00 Gabapentin 400 mg 400 mg HS PO Last administered on 12/07/16 20:31; Start at 21:00; Stop 12/08/16 at 14:03; Status DC Pantoprazole 80 mg/Sodium Chloride 100 ml @ 10 mls/hr Q10H IV Last administered on 12/08/16 16:30; Start 12/07/16 at 20:00 Potassium Chloride/Dextrose/ Water (Potassium Chloride Inj/D5W) 270 ml @ 90 mls /hr ONCE ONCE IV Last administered on 12/08/16 09:03; Start 12/08/16 at 07:40; Stop 12/08/16 at 10:39; Status DC Fentanyl 1 patch 1 patch Q3D TOPICAL Last administered on 12/08/16 09:04; Start 12/08/16 at 08:35 Lactated Ringer's (Lr) 1,000 ml @ 10 mls/hr Q24H ONCE IV Last administered on 12/08/16 16:34; Start 12/08/16 at 14:47; Stop 12/09/16 at 14:46 Labs Test 12/07/16 11:10 12/07/16 15:05 12/08/16 03:15 Prothrombin Time 12.1sec (8.1-12.5) Prothromb Time International Ratio 1.13ratio Hold Coleman Top Tube Received (Received) Magnesium Level 1.8mg/dL (1.6-2.6) White Blood Count 2.7th/mm3 (3.8-10.1) Red Blood Count 3.33mil/mm3 (4.40-5.80) Hemoglobin 10.5g/dL (13.8-17.2) Hematocrit 30.3% (41.0-50.0) Mean Corpuscular Volume 91.0fL (81-100) Mean Corpuscular Hemoglobin 31.5pg (27.0-35.0) Mean Corpuscular Hemoglobin Concent 34.7% (32.0-37.0) Red Cell Distribution Width 16.0% (12.3-15.4) Platelet Count 122bil/L (150-400) Neutrophils (%) (Auto) 69.9% (40-74) Lymphocytes (%) (Auto) 14.9% (14-46) Monocytes (%) (Auto) 12.6% (4-12) Eosinophils (%) (Auto) 1.9% (0-5) Basophils (%) (Auto) 0.7% (0-3) Sodium Level 137mEq/L (134-144) Potassium Level 3.3mEq/L (3.5-5.2) Chloride Level 100mEq/L (97-108) Carbon Dioxide Level 23mmol/L (18-29) Blood Urea Nitrogen 21mg/dL (8-27) Creatinine 0.70mg/dL (0.76-1.27) Estimat Glomerular Filtration Rate 121mL/min (>59) Glucose Level 114mg/dL (60-99) Calcium Level 8.9mg/dL (8.5-10.1) Total Bilirubin 0.8mg/dL (0.0-1.2) Aspartate Amino Transf (AST/SGOT) 11U/L (0-50) Alanine Aminotransferase (ALT/SGPT) 8U/L (0-44) Alkaline Phosphatase 46U/L (25-160) Total Protein 6.1g/dL (6.4-8.4) Albumin 3.8g/dL (3.4-5.0) Plan Impression Patient chart reviewed, patient interviewed and anesthestic plan with risks, benefits, and alternatives discussed, and informed consent obtained. ASA Physical Status: ASA4 Life Threatening Anesthetic Plan: TIVA Bene/Risks/Altern/Consents: Yes HP Complete Prior to Induction: Yes Bret Brown MD Dec 08, 2016 17:00
[2016-12-08 18:54] LABS: BASOPHILS % (AUTO) 0.5 % (0-3); EOSINOPHILS % (AUTO) 3.3 % (0-5); MONOCYTES % (AUTO) 12.7 % (4-12); Mean Corpuscular Hemoglobin 31.5 pg (27.0-35.0); Mean Corpuscular Volume 92.9 fL (81-100); NEUTROPHILS % (AUTO) 66.1 % (40-74); Platelet Count 125 bil/L (150-400)
--- NOTE | 2016-12-08 18:58 | PCM.ANEP1 ---
Post Anesthesia Phase 1 PACU Phase 1 Assessment Date of Service: Dec 08, 2016 Vital Signs Vital Signs Date Time Temp Pulse Resp B/P Pulse Ox O2 Delivery O2 Flow Rate FiO2 12/08/16 18:20 36.7 64 20 142/74 99 Room Air 12/08/16 17:58 70 16 99/54 100 Room Air 12/08/16 17:44 37.2 83 16 93/49 95 Room Air 12/08/16 16:58 36.9 74 14 143/83 98 Room Air 12/08/16 14:04 37.1 74 20 140/75 99 Room Air Anesthetic Administered: TIVA Level of Alertness: Awake, talking PAZ's with Equal Strength: No Pain: No Pain Scale Score: 0 Nausea or Vomiting: No Oxygen Delivery: Nasal Cannula Lungs: Diminished Bret Brown MD Dec 08, 2016 18:58
--- NOTE | 2016-12-08 18:59 | PCM.ANEP2 ---
Post Anesthesia Evaluation ASA/CMS Post Anesthesia VS in Patient's Normal Range?: Yes Resp Stable; Airway Patent?: Yes CV Function & Hydration Stable: Yes Mental Status Recovered?: Yes Pain control Satisfactory?: Yes N/V Control Satisfactory?: Yes Bret Brown MD Dec 08, 2016 18:59
--- NOTE | 2016-12-08 19:09 | NUR ---
Urine output Bladder scanned pt. this morning which showed 750 retained. Encouraged pt. to void and he was able to void 400cc. Notified MD and talked to pt. about possibility of straight cath. Pt. said he does not want a catheter and would try to void again. Sat in bathroom for a bit and was able to void 450 more ml. post void residual 100. Will continue to monitor.
--- NOTE | 2016-12-08 19:11 | NUR ---
Transfer endo to [facility] Pt. returned from endo procedure at 1800 in stable condition. AOX3. Walking from gurney to bed. Vitals stable, pt. on . 03/16 pain treated with 1.5 mg dilaudid.
[2016-12-08] MEDS: LORazepam 0.5 mg Tablet PO PRN (21:31)
[2016-12-08] MEDS: Sucralfate 100 mg/mL 10 mL Suspension PO SCH (21:33)
[2016-12-08] MEDS: Acyclovir 400 mg Tablet PO SCH (21:33)
[2016-12-08] MEDS ORDERED: 0.9% Sodium Chloride 250 ML ONE (23:11)
--- NOTE | 2016-12-08 23:15 | CONS ---
[address] [address] CONSULTATION REPORT PATIENT: KRYSTIN GIBBS : 1955 MR#: [id number] ADMIT: 12/07/2016 JOB ID: [id number] DATE OF SERVICE: 12/08/2016 REQUESTING PROVIDER: Samir Cabrera DO. REASON FOR CONSULTATION: Coffee-ground emesis. HISTORY OF PRESENT ILLNESS: This is a 61-year-old male with history of stage IV tonsillar carcinoma who is receiving active chemo and radiation. He is about 38 weeks into his radiation and this past Thursday started to notice a significant increase in discomfort with swallowing. He has really been largely intolerant of food over the last couple of weeks in particular, but since Thursday much worse. Dr. Coronel's last note from December 01 was reviewed and the effects of therapy creating the oropharyngeal side effects with odynophagia and weight loss were thought to be related to early mucositis. ALLERGIES: No known drug allergies. MEDICATIONS: Patient is on Tylenol, aspirin, Valium, Lexapro, gabapentin, morphine, oxycodone, zinc, oxymetazoline nasal spray, prednisolone eye drops, Zofran, MiraLAX, Compazine, ranitidine, vitamin C and multivitamin. PAST MEDICAL HISTORY: Stage IV tonsillar cancer as above. He additionally has a history of depression, reflux, anxiety, psoriasis, hypertension, chronic back pain, corneal transplant, right knee surgery, and some other orthopedic operations. FAMILY HISTORY: Noncontributory. SOCIAL HISTORY: Ex-smoker. REVIEW OF SYSTEMS: Patient was tolerating a clear and full liquid diet up until earlier today. He is still very miserable with odynophagia. Weight loss has been a problem of late in particular. He moves his bowels somewhat in relation to how much he has been eating. Less so in the last couple of weeks. No significant abdominal pain at the moment. The remainder of his review is negative. PHYSICAL EXAMINATION: Blood pressure 143/83, pulse 74, breathing 14, temperature 36.9, and 98% on room air. The patient was in no distress. Alert, oriented, appropriate, cooperative, conversational. Oropharynx: I could not see any signs of thrush on exam in the posterior oropharynx. Heart sounds were distant. No significant peripheral pitting edema. Good air entry bilaterally. He had a little bit of a cough which seems to come on in the afternoons for him. Abdomen was soft. Minimal discomfort to palpation in the epigastrium. No guarding. LABORATORIES: As above. White count 2.7, platelets 122, hemoglobin 10.5. INR 1.13. BUN 21, creatinine 0.70, potassium 3.3, glucose 114. Liver tests normal. IMAGING: CAT scan did not reveal the source. He had some submucosal edema consistent with pharyngitis, which would be consistent with his radiation therapy. ASSESSMENT AND PLAN: A 61-year-old male with stage IV tonsillar cancer in active therapy with subacute onset of worsening odynophagia consistent with severe mucositis. He has a history of thrush and it would be reasonable to pursue an endoscopic evaluation urgently to exclude the presence of ruben esophagitis which would certainly be a treatable condition for him. Esophagogastroduodenoscopy is therefore discussed and the patient consents to proceed. Please see the EGD note for further details.
[2016-12-09] VITALS (12 sets, daily range): BP systolic 123–153; BP diastolic 65–83; PULSE 59–81; RESP 16–20; O2SAT 96–99
[2016-12-09] MEDS: HYDROmorphone 0.5 mg/0.5 mL iSecure Syringe IVPUSH PRN ×4 (00:32→09:28)
[2016-12-09 00:38] LABS: BASOPHILS % (AUTO) 0.4 % (0-3); EOSINOPHILS % (AUTO) 3.5 % (0-5); Mean Corpuscular Volume 91.7 fL (81-100); NEUTROPHILS % (AUTO) 64.2 % (40-74); Platelet Count 122 bil/L (150-400)
--- NOTE | 2016-12-09 01:08 | ENDO ---
[address] [address] ENDOSCOPY PROCEDURE PATIENT: KRYSTIN GIBBS : 1955 MR#: [id number] ADMIT: 12/07/2016 JOB ID: [id number] DATE OF PROCEDURE: 12/08/2016 PRIMARY PROVIDER: Justo Bedoya MD. PROCEDURE: Esophagogastroduodenoscopy with brushing. INDICATION: A 61-year-old male involved in active chemoradiation for stage IV tonsillar carcinoma. The patient, since about Thursday of last week (now about five days ago) has had dramatically increased symptoms of mucositis and odynophagia, and actually had some coffee-ground emesis of late. EGD is pursued to exclude the possibility of esophageal candidiasis. EQUIPMENT: GIF-H180. SEDATION: Monitored anesthesia as provided by Dr. Bret Brown. COMPLICATIONS: None identified. PROCEDURE INFORMATION: After the risks and benefits were explained, written and verbal informed consent was obtained. The patient was brought into the endoscopy suite and placed into the left lateral decubitus position. Sedation was achieved as above. The scope was introduced into the mouth through the bite block and advanced under direct visualization through the oropharynx, esophagus, stomach, and ultimately to the second portion of the duodenum. The scope was slowly withdrawn to carefully examine the mucosa for any defects or lesions. Retroflexed views were accomplished in the stomach. The stomach was decompressed. The scope was removed from the patient who tolerated the procedure well. FINDINGS: 1. Duodenum: There was some mild patchy erythema. No ulcers. No overt pathology appreciated. 2. Stomach: The patient had mild diffuse gastropathy. No ulcers. No mass lesions. No outlet obstruction. There was some bile-stained gastric fluid easily suctioned up with the endoscope. Retroflexed views of the LES were unremarkable apart from a mild hiatal hernia. 3. Esophagus: The squamocolumnar junction correlated with the top of the gastric folds. The GE junction was at about 42 cm from the incisors. The patient had linear exudate consistent with severe distal esophagitis up to about 36 cm from the incisors. The esophagus then appeared largely normal and then there was a small amount of mucositis seen up near the upper esophageal sphincter mechanism. I did not see any focal stricturing. We elected to brush the white exudate in the proximal esophagus to exclude the presence of ruben. 4. Oropharynx: There was obvious mucositis into the posterior oropharynx. Passage of the scope through this region and back initiated a small amount of heme from the friability. Nothing seemed to be sustained. This was easily suctioned with the endoscope. ENDOSCOPIC DIAGNOSES: 1. Moderate oropharyngeal mucositis. 2. Proximal mild esophageal mucositis brushed for exclusion of ruben. 3. Small sliding hiatal hernia. 4. Severe distal esophagitis. 5. Mild diffuse nonspecific gastroduodenoscopy. RECOMMENDATIONS: 1. Await VINNY wet prep results. I doubt this is going to be consistent with ruben. However, if we are surprised and it does glove turner positive, then I would recommend a full 21 day course of oral fluconazole therapy. 2. In the meantime, the patient should be allowed a full liquid to dysphagia consistency diet, and I would recommend sucralfate 10 mL four times a day. 3. We can leave the proton prep pump inhibitor infusion on until tomorrow morning and then convert over to twice daily oral therapy.
[2016-12-09] MEDS: Pantoprazole Inj 80 MG in 0.9% Sodium Chloride 80 ML IV SCH (03:33)
--- NOTE | 2016-12-09 04:51 | NUR ---
pain/nausea Pt reporting consistent throat pain at 10/10 with slight decrease in pain when given Dilaudid IV. Pt observed to be resting with eyes closed upon reassessment. MD gave one time dose of Ativan PO since pt reported Valium was not effective.Pt reports he was able to sleep more than he has so far since being at the hospital. Pt also received Zofran 8mg IV for nausea with relief. Pt able to swallow meds with nectar thick liquids however this does cause pt increased pain.
[2016-12-09] MEDS ORDERED: Pantoprazole 40 mg ER24 Tablet PO SCH (07:30)
[2016-12-09] MEDS: Sucralfate 100 mg/mL 10 mL Suspension PO SCH ×4 (08:04→22:29)
[2016-12-09] MEDS: PrednisoLONE 1% 1 mL Ophthalmic Suspension BOTH_EYES SCH ×4 (08:04→21:14)
[2016-12-09] MEDS: Polyethylene Glycol (PEG) 17 Gm Powder PO SCH (08:04)
[2016-12-09] MEDS: Acyclovir 400 mg Tablet PO SCH ×2 (08:05→21:14)
[2016-12-09] MEDS: Ondansetron 2 mg/mL 2 mL Inj IVPUSH PRN (08:16)
[2016-12-09] MEDS ORDERED: MethylprednisoLONE (PED) 4 mg/mL Inj IVPUSH ONE (08:30)
--- NOTE | 2016-12-09 08:35 | NUR ---
Pt. screened. No OT needs identified. DC order
--- NOTE | 2016-12-09 08:38 | PCM.PNMED ---
Subjective Date of Service Dec 09, 2016 Subjective pt with sig pain again this AM - not improved on current fentanyl regimen - willl add solumedrol for inflamm control after d/w dr pimentel yesterday. switch ppi to IV given odynophagia. no cp/sob/f Exam Vital Signs Vital Sign - Last Date Time Temp Pulse Resp B/P Pulse Ox O2 Delivery O2 Flow Rate FiO2 12/09/16 05:53 36.7 72 16 128/65 99 Room Air Intake and Output 12/08/16 12/08/16 12/09/16 Cumulative From/Thru 15:00 23:00 07:00 12/07/16 10:09 - 12/09/16 05:53 Intake Total 1723 ml 940 ml 5132 ml Output Total 800 ml 1000 ml 2000 ml Balance 923 ml -60 ml 3132 ml Intake Oral 400 ml 700 ml 1100 ml IV Total 1323 ml 240 ml 4032 ml Output Urine Total 800 ml 1000 ml 2000 ml # Bowel Movements 0 0 0 Exam Gen.: No acute distress, alert and oriented, pleasant HEENT: Normocephalic/atraumatic, pupils equal round react to light and accommodation,EOMI, Anicteric sclera, erythematous mucosa, dry blood noted, ulcerations on upper post palate with irritaion/no active bleeding noted Neck: No JVD, lymphadenopathy, no thyromegaly Cardiovascular: No rubs clicks murmurs or gallops, regular rate Respiratory: Clear to auscultation bilaterally no wheezes rales or rhonchi, good historian effort GI: Soft, mild epigastric tenderness, no rigidity or guarding, epigastric regional clicking/mass noted with palpation no rebound tenderness Extremities: No clubbing cyanosis or edema, warm, sensation intact Neurologic, muscle strength 5 out of 5 in upper and lower extremities bilaterally, creatinine nerves II-12 grossly intact, DTRs 2+ at patellar and brachial radialis and bicipital, sensation intact Psych: Mood appropriate, affect appropriate, no tangential thought or speech IVs and Medications Medications Reviewed: Medications were reviewed in detail Lab and Diagnostics Result Diagram: 12/09/16 0030 12/08/16 0315 12-lead ECG Right bundle-branch block, no acute ischemic changes Additional Diagnostics EGD 12/08 FINDINGS: 1. Duodenum: There was some mild patchy erythema. No ulcers. No overt pathology appreciated. 2. Stomach: The patient had mild diffuse gastropathy. No ulcers. No mass lesions. No outlet obstruction. There was some bile-stained gastric fluid easily suctioned up with the endoscope. Retroflexed views of the LES were unremarkable apart from a mild hiatal hernia. 3. Esophagus: The squamocolumnar junction correlated with the top of the gastric folds. The GE junction was at about 42 cm from the incisors. The patient had linear exudate consistent with severe distal esophagitis up to about 36 cm from the incisors. The esophagus then appeared largely normal and then there was a small amount of mucositis seen up near the upper esophageal sphincter mechanism. I did not see any focal stricturing. We elected to brush the white exudate in the proximal esophagus to exclude the presence of ruben. 4. Oropharynx: There was obvious mucositis into the posterior oropharynx. Passage of the scope through this region and back initiated a small amount of heme from the friability. Nothing seemed to be sustained. This was easily suctioned with the endoscope. ENDOSCOPIC DIAGNOSES: 1. Moderate oropharyngeal mucositis. 2. Proximal mild esophageal mucositis brushed for exclusion of ruben. 3. Small sliding hiatal hernia. 4. Severe distal esophagitis. 5. Mild diffuse nonspecific gastroduodenoscopy. RECOMMENDATIONS: 1. Await VINNY wet prep results. I doubt this is going to be consistent with ruben. However, if we are surprised and it does turning sander operator positive, then I would recommend a full 21 day course of oral fluconazole therapy. 2. In the meantime, the patient should be allowed a full liquid to dysphagia consistency diet, and I would recommend sucralfate 10 mL four times a day. 3. We can leave the proton prep pump inhibitor infusion on until tomorrow morning and then convert over to twice daily oral therapy. 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 Leigh - severe esophagitis, with oropharyngeal and esophageal mucositis - cx for ruben - pending - Dr Ngo consulted from ER, patient's oncologist is Dr Pimentel - will add IV steroids 4/4 - adv diet as tolerated - switched PO PPI to IV for symptom relief - Pain control with IV Dilaudid (1.5 q3prn), can restart Roxicodone and MS Contin when tolerating by mouth meds - until then had added fentanyl 25 g and appreciate palliative care management, consulted - Monitor oxygen saturations, keep oxygenation above 92% with supplemental oxygen as needed. Please contact physician if becoming hypoxic #severe esophagitis, POA - cont PPI ,sucralfate per GI #Depression - Will resume home Escitalopram when tolerating by mouth #HTN, chronic. At goal presently -No home BP meds currently being taken, will consider when necessary Pain Evaluation: Other (titrating pain meds with palliative consult) GI Prophylaxis: Proton Pump Inhibitor VTE Mechanical Devices: Intermittant Pneumatic CD Resuscitation Status: CPR: Attempt Resuscitation Time spent 35 minutes spent with eval and mgmt Nasim Randhawa DO Dec 09, 2016 08:38
--- NOTE | 2016-12-09 08:47 | NUR ---
Palliative care note D/A: Case discussed in PC rounds today. Dr. Gallardo has seen pt and notes that she feels he may have a component of anxiety and panic that contributed to his lack of seeking medical care during the approx. year that he experienced symptoms and did not seek medical care. Call to megan Sinclair to discuss pt capabilities and information gathered regarding pt functioning and his home situation. Danii to call dtr and is also given extension to Antony HOPSON, [facility]. Note that pt told Dr. Gallardo, during a conversation regarding her capabilities/involvement in household activities, that his spouse only did the dishes. This worker to call dtr in [place] to discuss DPOA and try to obtain a copy. Isaura MARIO, SEDRICK Addendum: 12/09/16 at 1340 by FITZ FUCHS SS PC note amendment D/A: Phone call to pt dtr Tarsha at [phone]. Ask about medical DPOA which she indicates that she has and that she left a copy for pt record at the hospital during his Aug 2016 hospitalization. Note that this is not present in EMR. Tarsha also notes that she does not have access to a fax currently. She does indicate that the [facility] also has a copy. This worker will return call to Tarsha if unable to find copy at [facility]. Msg left for MARK ANTHONY Elizabeth at [facility]. P: Palliative care to follow. Isaura MARIO, [facility]
[2016-12-09] MEDS ORDERED: HYDROmorphone PCA 0.2 mg/mL 30 mL Inj IV PRN (09:35)
[2016-12-09 09:46] LABS: BASOPHILS % (AUTO) 0.5 % (0-3); EOSINOPHILS % (AUTO) 3.5 % (0-5); MONOCYTES % (AUTO) 14.6 % (4-12); Mean Corpuscular Hemoglobin 31.6 pg (27.0-35.0); Mean Corpuscular Volume 92.7 fL (81-100); NEUTROPHILS % (AUTO) 64.2 % (40-74); Platelet Count 120 bil/L (150-400)
[2016-12-09] MEDS ORDERED: MethylprednisoLONE Sodium Succinate 40 mg/mL Inj IVPUSH ONE (10:15)
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
[2016-12-09] MEDS ORDERED: Propofol 10,000 mCg/mL 20 mL Inj ONE (13:02)
[2016-12-09] MEDS ORDERED: Ketamine 10 mg/mL 20 mL Inj ONE (13:02)
[2016-12-09] MEDS ORDERED: Glycopyrrolate 0.2 MG/ML 1mL Inj ONE (13:02)
[2016-12-09] MEDS ORDERED: 0.9% Sodium Chloride 250 ML ONE (14:12)
--- NOTE | 2016-12-09 15:03 | NUR ---
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 Discussed PEG tube feedings with patient. At this time patient would like to try to consume food without the PEG tube, but is willing to consider it if it is too painful to eat. Patient asked his radiation to be held while he is in the hospital because he felt it was "too much". No other care needs identified at this time. Will continue to follow patient during his stay in the hospital.
--- NOTE | 2016-12-09 16:43 | PCM.PNMED ---
Subjective Date of Service Dec 09, 2016 Subjective GASTROENTEROLOGY PROGRESS NOTE Patient appears to be in no acute distress, but does complain of 10/10 throat pain and nausea. He reports to tolerate the Ensure ok. He has some skin burn on the neck from the radiation and the calmoseptine helps a little. Patient has no other complaint and reports a good bowel movement and urination yesterday. He denies CP, SOB, vomiting, abdominal pain, or dizziness. Exam Vital Signs Vital Sign - Last Date Time Temp Pulse Resp B/P Pulse Ox O2 Delivery O2 Flow Rate FiO2 12/09/16 12:55 37.0 71 20 153/72 99 Room Air Intake and Output 12/08/16 12/08/16 12/09/16 Cumulative From/Thru 15:00 23:00 07:00 12/07/16 10:09 - 12/09/16 05:53 Intake Total 1723 ml 940 ml 5132 ml Output Total 800 ml 1000 ml 2000 ml Balance 923 ml -60 ml 3132 ml Intake Oral 400 ml 700 ml 1100 ml IV Total 1323 ml 240 ml 4032 ml Output Urine Total 800 ml 1000 ml 2000 ml # Bowel Movements 0 0 0 Exam Gen.: Frail, pale, chronically-ill appearance. No acute distress, alert and oriented, pleasant, conversational, normal speech. HEENT: Normocephalic/atraumatic, pupils equal round react to light and accommodation,EOMI, Anicteric sclera, erythematous mucosa, ulcerations on upper post palate with irritaion/no active bleeding noted. Neck: No JVD, lymphadenopathy, no thyromegaly Cardiovascular: No rubs clicks murmurs or gallops, regular rate Respiratory: Clear to auscultation bilaterally no wheezes rales or rhonchi. GI: Soft, mild epigastric tenderness, no rigidity or guarding, no rebound tenderness Extremities: No clubbing cyanosis or edema, warm, sensation intact Psych: Mood appropriate, affect appropriate, no tangential thought or speech. Skin: erythema with some small raw patches on the neck. IVs and Medications Medications Reviewed: Medications were reviewed in detail Lab and Diagnostics Result Diagram: 12/09/16 0800 12/09/16 0525 12-lead ECG Right bundle-branch block, no acute ischemic changes Additional Diagnostics EGD 12/08 FINDINGS: 1. Duodenum: There was some mild patchy erythema. No ulcers. No overt pathology appreciated. 2. Stomach: The patient had mild diffuse gastropathy. No ulcers. No mass lesions. No outlet obstruction. There was some bile-stained gastric fluid easily suctioned up with the endoscope. Retroflexed views of the LES were unremarkable apart from a mild hiatal hernia. 3. Esophagus: The squamocolumnar junction correlated with the top of the gastric folds. The GE junction was at about 42 cm from the incisors. The patient had linear exudate consistent with severe distal esophagitis up to about 36 cm from the incisors. The esophagus then appeared largely normal and then there was a small amount of mucositis seen up near the upper esophageal sphincter mechanism. I did not see any focal stricturing. We elected to brush the white exudate in the proximal esophagus to exclude the presence of ruben. 4. Oropharynx: There was obvious mucositis into the posterior oropharynx. Passage of the scope through this region and back initiated a small amount of heme from the friability. Nothing seemed to be sustained. This was easily suctioned with the endoscope. ENDOSCOPIC DIAGNOSES: 1. Moderate oropharyngeal mucositis. 2. Proximal mild esophageal mucositis brushed for exclusion of ruben. 3. Small sliding hiatal hernia. 4. Severe distal esophagitis. 5. Mild diffuse nonspecific gastroduodenoscopy. RECOMMENDATIONS: 1. Await VINNY wet prep results. I doubt this is going to be consistent with ruben. However, if we are surprised and it does returned telephone equipment appraiser positive, then I would recommend a full 21 day course of oral fluconazole therapy. 2. In the meantime, the patient should be allowed a full liquid to dysphagia consistency diet, and I would recommend sucralfate 10 mL four times a day. 3. We can leave the proton prep pump inhibitor infusion on until tomorrow morning and then convert over to twice daily oral therapy. 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 EGD 12/08/16: Moderate oropharyngeal mucositis, proximal mild esophageal mucositis brushed ruled out ruben, small sliding hiatal hernia, severe distal esophagitis, and mild diffuse nonspecific gastroduodenoscopy. 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 - Proximal mild esophageal mucositis brushed for exclusion of ruben. - Small sliding hiatal hernia. - Severe distal esophagitis. - Mild diffuse nonspecific gastroduodenoscopy. Plans: - Fungal smear negative for ruben. - Continue dyphagia consistency diet - Continue Sucrafate 10mg QID - Continue Protonix IVP in light of the odynophagia. Can transition to PO as tolerated. - Pain management per primary team. - Follow up with oncology Thank you for this consult. If you have any additional questions or concerns, please do not hesitate to contact us. Pain Evaluation: Pain not Controlled GI Prophylaxis: Proton Pump Inhibitor VTE Mechanical Devices: Intermittant Pneumatic CD Resuscitation Status: CPR: Attempt Resuscitation Attending Statement Patient seen and examined. Agree with assessment and plan as described by Dr Fragoso. Overall, much improved. Still prefers full liquid diet. Alexei Fragoso DO Dec 09, 2016 16:43 Hari Leigh MD Dec 09, 2016 23:36 #severe esophagitis, POA - cont PPI ,sucralfate per GI #Depression - Will resume home Escitalopram when tolerating by mouth #HTN, chronic. At goal presently -No home BP meds currently being taken, will consider when necessary Pain Evaluation: Pain not Controlled GI Prophylaxis: Proton Pump Inhibitor VTE Mechanical Devices: Intermittant Pneumatic CD Resuscitation Status: CPR: Attempt Resuscitation Alexei Fragoso DO Dec 09, 2016 16:43
[2016-12-09] MEDS: Pantoprazole 4 mg/mL 10 mL Inj IVPUSH SCH (17:01)
[2016-12-09] MEDS: HYDROmorphone PCA 0.2 mg/mL 30 mL Inj IV PRN (17:27)
--- NOTE | 2016-12-09 18:06 | CCS NOTE ---
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 He was diagnosed end of 2015, was treated with three cycles of induction chemotherapy with cisplatin and Taxotere with excellent response and then transitioned to concomitant chemoradiation with a curative intent. The chemoradiation started since November 10, 2016 and he has been receiving weekly cisplatin and weekly low-dose Taxol each at 30 mg/m2. When I saw him last week on December 01, it was the beginning of the 4th week and we had reduced the dose of chemotherapy as discussed in my last note to 25 mg/m2 and adjusting further downward because of his weight loss. Apparently, he had increasing mucositis symptoms and, per his report, his radiation was held in the last two days of last week. He was admitted on December 07, with what was reported as hematemesis, but it sounds like he had some blood likely from his mucositis drifting down to the stomach that was brought up. It was particularly painful because of the mucositis and the acid exposure with the vomiting. Dr. Randhawa had asked for GI consult and Dr. Leigh performed an EGD yesterday which I reviewed the report showing expectedly moderate to severe oropharyngeal mucositis from radiation and severe distal esophagitis which is not related to radiation. He is on a proton pump drip and is being switched then to oral high-dose. He missed his weekly chemotherapy this December 08. EXAMINATION: On exam, he is sitting in the bed, is communicative, and appears more comfortable than at initial admission. 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 He was on oral long-acting morphine MS Contin at 30 mg twice daily as outpatient. He is afebrile. Oral cavity shows grade 1 to grade 2 mucositis. There is no significant external dermatitis. Questionable early thrush on the buccal mucosa. No peripheral edema. LABORATORIES: Show a white count of 2.0 with an absolute neutrophil count of approximately 1200, hemoglobin 10.0, platelets 120. Chemistry shows a potassium of 3.2, otherwise stable with a normal creatinine and LFTs. Surprisingly, his albumin was normal with 3.8. ASSESSMENT AND PLAN: A 61-year-old gentleman with regionally advanced head and neck cancer, as discussed above, without distant metastases who is being aggressively treated with a curative intent. He is in the second half of chemoradiation which is usually the most complicated phase from sequela of radiation-induced mucositis. His endoscopy report did not show any ulcer, but he did have some severe distal esophagitis and the radiation-induced mucositis in the upper oropharynx. Fungal smear has been sent which was negative. He missed his weekly chemotherapy this Thursday, and his radiation is on hold as well. I recommended that we cancel his chemotherapy this week as well as next Thursday, December 15, but I would prefer for him to resume radiation as soon as he can, hopefully by of this week on December 10. Interruptions of radiation during treatment are associated with higher risk of recurrent cancer, particularly if it is beyond one week. In order to reduce the toxicity of radiation, we are going to hold chemotherapy radiosensitization this week and next week so that he can continue and finish treatment. I appreciate the hospitalist and Palliative Care support in adjusting his pain medication. I believe that given the fact that he has only 2-3 weeks more of treatment left, we are hoping that he does not need to have a PEG tube. Approximately 2/3 to 3/4 of the patients can go through this intense treatment without requiring a PEG tube placement. I am scheduling him to receive one dose of Neupogen to improve his white count status. A brief course of steroids as started by the hospitalist team is helpful to calm down the inflammation and a dose of approximately 4 mg of dexamethasone for 2-3 days should be adequate once a day.
--- NOTE | 2016-12-09 18:48 | NUR ---
Pain Pt rated pain 10/10 in his throat when starting BUTTON TUFTER Dilaudid. After BUTTON TUFTER was started pt stated he felt some relief but still rated pain a 9/10. Paged MD and she increased dose. Will continue to monitor.
[2016-12-10] VITALS (9 sets, daily range): BP systolic 129–155; BP diastolic 76–85; PULSE 68–98; RESP 16–18; O2SAT 96–99
[2016-12-10] MEDS: HYDROmorphone PCA 0.2 mg/mL 30 mL Inj IV PRN ×2 (02:06→11:26)
--- NOTE | 2016-12-10 05:30 | NUR ---
Pain/activity Pt reporting effective pain control with BILINGUAL SALES REPRESENTATIVE Dilaudid at 0.3/10 min/1.8mg. Pt reporting he has been able to sleep solid since 2 am and also reporting being able to swallow better.
[2016-12-10 08:20] LABS: BASOPHILS % (AUTO) 0 % (0-3); EOSINOPHILS % (AUTO) 1.2 % (0-5); MONOCYTES % (AUTO) 18.1 % (4-12); Mean Corpuscular Hemoglobin 31.9 pg (27.0-35.0); Mean Corpuscular Volume 90.7 fL (81-100); NEUTROPHILS % (AUTO) 64.6 % (40-74); Platelet Count 149 bil/L (150-400)
[2016-12-10] MEDS: Sucralfate 100 mg/mL 10 mL Suspension PO SCH ×4 (08:54→22:17)
[2016-12-10] MEDS: Pantoprazole 4 mg/mL 10 mL Inj IVPUSH SCH ×2 (08:54→16:17)
[2016-12-10] MEDS: Dexamethasone 4 mg/mL Inj IVPUSH SCH (08:55)
[2016-12-10] MEDS: Polyethylene Glycol (PEG) 17 Gm Powder PO SCH (08:55)
[2016-12-10] MEDS: PrednisoLONE 1% 1 mL Ophthalmic Suspension BOTH_EYES SCH ×4 (08:56→22:18)
[2016-12-10] MEDS: Acyclovir 400 mg Tablet PO SCH ×2 (08:56→22:17)
--- NOTE | 2016-12-10 10:02 | PCM.PALLBR ---
Palliative Care Recommendation Summary of palliative recommendations: 12/10/16 Pain--better managed. Will increase his fentanyl patch to 50 mcg which may be shy based on his HM dose. Will also try and bladder changer to oral HM 4 mg dosing would be appropriate while fentanyl increasing. He is pleased with the result. Hopefully with better pain management he will be able to continue with PO intake. 6 hour into increased fentanyl-helpful but still defines as 7/10 pain level. Will start hydromorphone 4 mg Q 4 scheduled and probably will need increase in fentanyl patch to cover. Weight loss-encourage more regular grazing with ensure-aiming for 3-4 daily to maintain weight. Esophagitis/stomatitis-will continue acyclovir for 3 more days then d/c and monitor. Would do same with steroids. Insomnia-continue with mirtazapine at 30 mg HS 12/09/16 Pain not well controlled as per pt. Will start hydromorphone PSA, continue his fentanyl patch at 25 and assess med dosing later this afternoon or in AM. I suspect he will need and increase in patch as well as HM dosing Insomnia-will increase mirtazapine to 30 mg Esophagitis/stomatitis- no evidence of fungus/ruben. Apparently viral swab from ulcers was not sent--at least I can't find it. he is now on acyclovir which I would only continue for 5 days-- it either helps or not. -Symptom management (Pain/other) PAIN- will increase his hydromorphone dosing. Will need to wait 1-2 days to determine if fentanyl patch will be adequate. Will increase his gabapentin to 600 mg HS. INSOMNIA-Will try adding mirtazapine 15 mg HS. Continue on his escitalopram which at this point is low dose. [id number]-ej above. CONSTIPATION- start regular dosing of senna and or miralax STOMATITIS-unclear regarding swab-- no results and can't find order. Consider treating empirically with antiviral. -DPOA/Advanced Directives/POLST-DPOAHC =daughter Tarsha. He does not think his has the capacity and this is supported by Antony WHITE-oncology -Family/emotional support-limited. he is isolated by his anx/depression/panic -Spiritual support-not interested Patient Goals: 1. Patient wants to be told the truth about his/her illness, even if it is unpleasant. YES 2. Patient would like to be told prognosis when it can be predicted, to better guide treatment decisions.YES 3. Patient would choose quality of life over quantity of life. YES. 4. Patient would request that comfort care take priority over cognitive/mental confusion. YES Problems: End of Life Preferences He wishes FULL CODE status but states if truly EOL he is not interested in being prolonged with CPR/VENT Goals of Care He identifies wanting aggressive treatment including chemo radiation which he states he is only 1/2 way through He identifies that there are still things he wants to do but acknowledges his anx/depression is limiting him on this Disposition His plan is to go home but hopefully with better pain control. Resuscitation Status Resuscitation Status: CPR: Attempt Resuscitation POLST Updates/Changes Previous POLST?: No Artificially Admin Nutrition: Long-Term Nutrition by Tube Feeding (if necessary ) . Symptom management: Pain Total time 45 minutes; >50% face to face with patient and/or family, providing counselling regarding plans and recommendations, and in care coordination with his/her medical teams. I also spent an additional [ ] minutes counseling for advanced care planning with the patient/the patients family/the surrogate decision maker. copies to: Justo Bedoya MD; Chivo Valadez MD Palliative Brief Note Date of Service Dec 10, 2016 . 61 yo pt followed by Dr. Coronel and Ketan for SCCA R tonsillar bed mid chemorad treatment admitted for increasing pain, GERD sx and hematemesis. EGD noting esophagitis and oropharyngeal mucositis neg for fungal elements. Dr. Coronel hoping to restart rad tx tomorrow with holding off on chemo rad- sensitizing for another week. Pain is better managed-patch increased to 50 mcg and may need to increase 75 or 100 particularly with note that sx are expected to get worse with this phase of txmt. Tolerating pills unless huge--like acyclovir. What sounded like viral swab- unclear where this was taken and no results in computer-so treated empirically goal of [address] Coronel requests steroids for only a few more days. Anorexia but pushing ensure-2 yesterday and as yet 1 today-taking some pudding etc. Feels throat inflammation is less GERD sx less Insomnia-best sleep in long time last pm--increased mirtazapine to 30mg Hx of narcotics in past for pain-see hx. He states he has never had difficulty getting off once issue resolved. He is well aware of risk of meds and potential for withdrawal if stopped. He knows of taper once he is done with treatments if and when appropriate. He has never had narcan at home but his hx predates this recommendation. Kim Gallardo MD Dec 10, 2016 10:01
--- NOTE | 2016-12-10 10:39 | PCM.PNMED ---
Subjective Date of Service Dec 10, 2016 Subjective GASTROENTEROLOGY PROGRESS NOTE: Patient reports to feel much better today since he started the TURRET PRESS OPERATOR drip. His throat pain is still pretty severe, but his nausea improves and he has more energy. Patient prefers liquid diet and has no complaint this morning. He denies abdominal pain, nausea, vomiting, fever, or chills. Exam Vital Signs Vital Sign - Last Date Time Temp Pulse Resp B/P Pulse Ox O2 Delivery O2 Flow Rate FiO2 12/10/16 09:13 70 12/10/16 09:06 36.9 152/76 99 Room Air 12/10/16 06:08 18 Intake and Output 12/09/16 12/09/16 12/10/16 Cumulative From/Thru 15:00 23:00 07:00 12/07/16 10:09 - 12/10/16 06:26 Intake Total 436 ml 440 ml 6008 ml Output Total 0 ml 1000 ml 3000 ml Balance 436 ml -560 ml 3008 ml Intake Oral 436 ml 440 ml 1976 ml IV Total 4032 ml Output Urine Total 0 ml 1000 ml 3000 ml # Bowel Movements 0 0 0 Exam Gen.: Frail, pale, chronically-ill appearance. No acute distress, alert and oriented, pleasant, conversational, normal speech. HEENT: Normocephalic/atraumatic, pupils equal round react to light and accommodation,EOMI, Anicteric sclera, erythematous mucosa, ulcerations on upper post palate with irritaion/no active bleeding noted. Neck: No JVD, lymphadenopathy, no thyromegaly. Erythematous skin with some small raw patches. Cardiovascular: No rubs clicks murmurs or gallops, regular rate Respiratory: Clear to auscultation bilaterally no wheezes rales or rhonchi. GI: Soft, non distended, non tender, no rigidity or guarding, no rebound tenderness Extremities: No clubbing cyanosis or edema, warm, sensation intact Psych: Mood appropriate, affect appropriate, no tangential thought or speech. IVs and Medications Medications Reviewed: Medications were reviewed in detail Lab and Diagnostics Result Diagram: 12/10/1681512/10/16815 12-lead ECG Right bundle-branch block, no acute ischemic changes Additional Diagnostics EGD 12/08 FINDINGS: 1. Duodenum: There was some mild patchy erythema. No ulcers. No overt pathology appreciated. 2. Stomach: The patient had mild diffuse gastropathy. No ulcers. No mass lesions. No outlet obstruction. There was some bile-stained gastric fluid easily suctioned up with the endoscope. Retroflexed views of the LES were unremarkable apart from a mild hiatal hernia. 3. Esophagus: The squamocolumnar junction correlated with the top of the gastric folds. The GE junction was at about 42 cm from the incisors. The patient had linear exudate consistent with severe distal esophagitis up to about 36 cm from the incisors. The esophagus then appeared largely normal and then there was a small amount of mucositis seen up near the upper esophageal sphincter mechanism. I did not see any focal stricturing. We elected to brush the white exudate in the proximal esophagus to exclude the presence of ruben. 4. Oropharynx: There was obvious mucositis into the posterior oropharynx. Passage of the scope through this region and back initiated a small amount of heme from the friability. Nothing seemed to be sustained. This was easily suctioned with the endoscope. ENDOSCOPIC DIAGNOSES: 1. Moderate oropharyngeal mucositis. 2. Proximal mild esophageal mucositis brushed for exclusion of ruben. 3. Small sliding hiatal hernia. 4. Severe distal esophagitis. 5. Mild diffuse nonspecific gastroduodenoscopy. RECOMMENDATIONS: 1. Await VINNY wet prep results. I doubt this is going to be consistent with ruben. However, if we are surprised and it does roustabout crew leader positive, then I would recommend a full 21 day course of oral fluconazole therapy. 2. In the meantime, the patient should be allowed a full liquid to dysphagia consistency diet, and I would recommend sucralfate 10 mL four times a day. 3. We can leave the proton prep pump inhibitor infusion on until tomorrow morning and then convert over to twice daily oral therapy. 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 EGD 12/08/16: Moderate oropharyngeal mucositis, proximal mild esophageal mucositis brushed ruled out ruben, small sliding hiatal hernia, severe distal esophagitis, and mild diffuse nonspecific gastroduodenoscopy. 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 - Proximal mild esophageal mucositis brushed for exclusion of ruben. - Small sliding hiatal hernia. - Severe distal esophagitis. - Mild diffuse nonspecific gastroduodenoscopy. Plans: - Fungal smear negative for ruben. - Continue full liquid diet per the patient's preference. Can transition to dysphasia consistency diet as tolerated. - Continue Sucrafate 10mg QID - Continue Protonix IVP in light of the odynophagia. Can transition to PO Protonix as tolerated. - Pain management per primary care and palliative care. - Follow up with oncology. Per Dr. Coronel's note on 12/09/16, it is likely that the patient will not need a PEG tube given that he has only 2-3 weeks more of treatment left. Thank you for this consultation. We will sign off at this point. If you have any additional questions or concerns, please do not hesitate to contact us. Pain Evaluation: Adequate Pain Control GI Prophylaxis: Proton Pump Inhibitor VTE Mechanical Devices: Intermittant Pneumatic CD Resuscitation Status: CPR: Attempt Resuscitation Attending Statement Patient seen and examined. Agree with assessment and plan as described by Dr Fragoso. Alexei Fragoso DO Dec 10, 2016 10:39 Hari Leigh MD Dec 10, 2016 22:41
--- NOTE | 2016-12-10 11:44 | PCM.PNMED ---
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 Still not able to tolerate significant by mouth intake but drinking shakes for caloric intake. Switched to dexamethasone today, missed radiation appointment today. Denies fevers chills or chest pain Exam Vital Signs Vital Sign - Last Date Time Temp Pulse Resp B/P Pulse Ox O2 Delivery O2 Flow Rate FiO2 12/10/16 09:13 70 12/10/16 09:06 36.9 152/76 99 Room Air 12/10/16 06:08 18 Intake and Output 12/09/16 12/09/16 12/10/16 Cumulative From/Thru 15:00 23:00 07:00 12/07/16 10:09 - 12/10/16 06:26 Intake Total 436 ml 440 ml 6008 ml Output Total 0 ml 1000 ml 3000 ml Balance 436 ml -560 ml 3008 ml Intake Oral 436 ml 440 ml 1976 ml IV Total 4032 ml Output Urine Total 0 ml 1000 ml 3000 ml # Bowel Movements 0 0 0 Exam Gen.: Frail, pale, chronically-ill appearance. No acute distress, alert and oriented, pleasant, conversational, normal speech. HEENT: Normocephalic/atraumatic, pupils equal round react to light and accommodation,EOMI, Anicteric sclera, erythematous mucosa, ulcerations on upper post palate with irritaion/no active bleeding noted. Neck: No JVD, lymphadenopathy, no thyromegaly Cardiovascular: No rubs clicks murmurs or gallops, regular rate Respiratory: Clear to auscultation bilaterally no wheezes rales or rhonchi. GI: Soft, mild epigastric tenderness, no rigidity or guarding, no rebound tenderness Extremities: No clubbing cyanosis or edema, warm, sensation intact Psych: Mood appropriate, affect appropriate, no tangential thought or speech. Skin: erythema with some small raw patches on the neck. IVs and Medications Medications Reviewed: Medications were reviewed in detail Lab and Diagnostics Result Diagram: 12/10/16 0816 12/10/16 08 12-lead ECG Right bundle-branch block, no acute ischemic changes Additional Diagnostics EGD 12/08 FINDINGS: 1. Duodenum: There was some mild patchy erythema. No ulcers. No overt pathology appreciated. 2. Stomach: The patient had mild diffuse gastropathy. No ulcers. No mass lesions. No outlet obstruction. There was some bile-stained gastric fluid easily suctioned up with the endoscope. Retroflexed views of the LES were unremarkable apart from a mild hiatal hernia. 3. Esophagus: The squamocolumnar junction correlated with the top of the gastric folds. The GE junction was at about 42 cm from the incisors. The patient had linear exudate consistent with severe distal esophagitis up to about 36 cm from the incisors. The esophagus then appeared largely normal and then there was a small amount of mucositis seen up near the upper esophageal sphincter mechanism. I did not see any focal stricturing. We elected to brush the white exudate in the proximal esophagus to exclude the presence of ruben. 4. Oropharynx: There was obvious mucositis into the posterior oropharynx. Passage of the scope through this region and back initiated a small amount of heme from the friability. Nothing seemed to be sustained. This was easily suctioned with the endoscope. ENDOSCOPIC DIAGNOSES: 1. Moderate oropharyngeal mucositis. 2. Proximal mild esophageal mucositis brushed for exclusion of ruben. 3. Small sliding hiatal hernia. 4. Severe distal esophagitis. 5. Mild diffuse nonspecific gastroduodenoscopy. RECOMMENDATIONS: 1. Await VINNY wet prep results. I doubt this is going to be consistent with ruben. However, if we are surprised and it does bottom turning lathe tender positive, then I would recommend a full 21 day course of oral fluconazole therapy. 2. In the meantime, the patient should be allowed a full liquid to dysphagia consistency diet, and I would recommend sucralfate 10 mL four times a day. 3. We can leave the proton prep pump inhibitor infusion on until tomorrow morning and then convert over to twice daily oral therapy. 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 #Hematemesis/dysphagia secondary to history of Right Oropharyngeal squamous cell carcinoma with subsequent radiation mucositis, mild clinical improvement - S/p EGD on 12/[address] Leigh - severe esophagitis, with oropharyngeal and esophageal mucositis - cx for ruben - negative - Dr Ngo consulted from ER, patient's oncologist is Dr Coronel - will add IV steroids 12/09, switched to dexamethasone today 12/10 - adv diet as tolerated - switched PO PPI to IV for symptom relief - Pain control with IV Dilaudid (1.5 q3prn), can restart Roxicodone and MS Contin when tolerating by mouth meds - until then had continue fentanyl patch and Dilaudid BEDSPREAD INSPECTOR - Monitor oxygen saturations, keep oxygenation above 92% with supplemental oxygen as needed. Please contact physician if becoming hypoxic #severe esophagitis, POA - cont PPI ,sucralfate per GI #Depression - Will resume home Escitalopram when tolerating by mouth #HTN, chronic. At goal presently -No home BP meds currently being taken, will consider if BP remains elevated intermittent elevation likely secondary to pain and steroid Pain Evaluation: Other (active titration of pain meds) GI Prophylaxis: Proton Pump Inhibitor VTE Prophylaxis: Sub-Q Enoxaparin VTE Mechanical Devices: Intermittant Pneumatic CD Resuscitation Status: CPR: Attempt Resuscitation Time spent 35 minutes spent with evaluation and management Attending Statement Disposition: Patient likely to remain another one to 2 days to optimize pain relief and tolerating by mouth intake. Started DVT prophylaxis, discontinue if any bleeding presents. Also patient would need to consider a PEG tube if by mouth intake deteriorates. Nasim Randhawa DO Dec 10, 2016 11:44
--- NOTE | 2016-12-10 16:28 | NUR ---
NUTRITION FOLLOW-UP: ASSESS: 61 YO M admitted for upper GI bleed and throat cancer. Per notes, pt has lost 75-80 lb over the past year mainly due to throat pain/decreased appetite. Per notes, pt was able to gain some weight back and then lost the weight again while undergoing chemo and radiation. Wt has ranged for 68 kg - 78 kg over the past 4 months per E[address] review[address] has evaluated pt and placed him on a Tennille thick Full Liquid diet which MD notes states pt can advance to a dysphagia Mechanical diet as swallowing pain improves. Pt has been refusing meals but has been drinking the chocolate ensure. Pt willing to try to drink 6 ensure per day and wanting to try dysphagia mechanical peaches, ice cream and NT chicken broth for dinner tonight. Per notes, pt likely not a candidate for PEG as pt only has about 2-3 weeks of treatment left. Palliative care is following. PMHX: right oropharyngeal CA, HTN, Depression LABS: Reviewed. MEDS: Reviewed. GI: 0 BM recorded yet. CURRENT WTS: 67 kg. UBW 114.5kg (230lbs) DIET: dysphagia Mech and Full liquid diet, Tennille thick, Chocolate ensure TID. Refusing po except NT ensure and NT broth. EST. NEEDS: ca/wt gain Kcals: 8570-4430 kcal/day (35-40 kcal/kg BW) Pro: 80-120 g/day (1.2-1.8 g/kg BW) NUTRITION DIAGNOSIS: 1.) Severe protein/kcal malnutrition related to oropharyngeal CA as evidence by decreased PO intake due to throat pain, severe weight loss and visible muscle/fat loss. 2.) Inadequate oral intake related to throat pain as evidenced by refusal of po intake except fo ensure and broth x 3 days. NUTRITION INTERVENTION: 1.) Diet per ST recommendations. 2.) Continue to send Chocolate Ensure all trays and start sending chocolate ensure TID between meals. 3.) Send other patient preferences as able MONITOR / EVAL: PO intake, weights, labs, nutrition status, POC. Continue to monitor per high nutrition risk guidelines.
--- NOTE | 2016-12-10 19:12 | NUR ---
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 Tolerating PO meds well. Consistently rated pain a 9/10 while on OUTDOOR ADVENTURE INSTRUCTOR and 25mcg Fentanyl, pain decreased to 7/10 with higher patch dose and to 6.5/10 when meds changed to PO. Pt stated the pain is "the lowest it's been in months, I am so happy, now I can focus on eating instead of the pain." WCTM for pain medication effectiveness.
[2016-12-10] MEDS: LORazepam 0.5 mg Tablet PO PRN (23:10)
[2016-12-11] VITALS (8 sets, daily range): BP systolic 105–147; BP diastolic 66–77; PULSE 67–95; RESP 16–18; O2SAT 95–98
[2016-12-11 06:36] LABS: BASOPHILS % (AUTO) 0 % (0-3); EOSINOPHILS % (AUTO) 1.9 % (0-5); MONOCYTES % (AUTO) 15.3 % (4-12); NEUTROPHILS % (AUTO) 60.5 % (40-74); Platelet Count 144 bil/L (150-400)
[2016-12-11] MEDS: HYDROmorphone 0.5 mg/0.5 mL iSecure Syringe IVPUSH PRN (06:40)
[2016-12-11] MEDS: PrednisoLONE 1% 1 mL Ophthalmic Suspension BOTH_EYES SCH ×4 (06:40→22:24)
--- NOTE | 2016-12-11 06:44 | NUR ---
Throat pain rated 7-8 overnight. states 4mg PO dilaudid effective for several hours but pain then back to level 8. Patient painful this morning so Dilaudid 1.5mg IV also given for breakthrough pain. Tolerating PO and able to take pills without cough. Continues with Fentanyl patch 50 mcg's on shoulder. Pain level still currently at 7. Care ongoing.
[2016-12-11] MEDS: Sucralfate 100 mg/mL 10 mL Suspension PO SCH ×4 (06:50→22:23)
[2016-12-11] MEDS: Pantoprazole 4 mg/mL 10 mL Inj IVPUSH SCH ×2 (06:51→17:13)
[2016-12-11] MEDS ORDERED: LidocaineVisc 2%:Antacid 1:1 10 mL Syringe PO PRN (08:40)
[2016-12-11] MEDS: Dexamethasone 4 mg/mL Inj IVPUSH SCH (08:42)
[2016-12-11] MEDS: Acyclovir 400 mg Tablet PO SCH ×2 (08:42→22:23)
[2016-12-11] MEDS: Polyethylene Glycol (PEG) 17 Gm Powder PO SCH (08:42)
--- NOTE | 2016-12-11 08:57 | NUR ---
Palliative care note (late note for 12/10/16) D/A: Case discussed with Supa, DISTRICT MANAGER, dcp's. Discussed pt need for assistance in the home and [facility] referral. Noted that one had been started in the recent past with oncology team but pt did not have the resources to complete application. uSly and Candice to ask for expedited [facility] referral and to also ask/refer pt to resources to assist with [facility] completion, post dc. There is consideration of asking for HH with DISTRICT MANAGER and/or a senior agency for assist ([facility] or [facility] [employer]?). Dr. Gallardo notes that she may need to be provider to manage pt pain meds post dc. P: Palliative care to follow. Isaura MARIO, CCM
--- NOTE | 2016-12-11 09:45 | NUR ---
Morning Rounds Staffed patient's case with Dr. Lewis and case management. MD stated possible d/c today, case management stated possibly [facility] with home health.
[2016-12-11] MEDS ORDERED: HYDROmorphone 1 mg/mL Inj IVPUSH PRN (10:30)
--- NOTE | 2016-12-11 13:32 | PCM.PNMED ---
Subjective Date of Service Dec 11, 2016 Subjective Pt states he is doing much better. Pain is very well controlled on current pain medication regimen. He is tolerating PO at this time. No other complaints. Exam Vital Signs Vital Sign - Last Date Time Temp Pulse Resp B/P Pulse Ox O2 Delivery O2 Flow Rate FiO2 12/11/16 13:06 36.7 95 16 105/66 97 Room Air Intake and Output 12/10/16 12/10/16 12/11/16 Cumulative From/Thru 15:00 23:00 07:00 12/07/16 10:09 - 12/11/16 05:59 Intake Total 1400 ml 200 ml 7608 ml Output Total 1200 ml 0 ml 4200 ml Balance 200 ml 200 ml 3408 ml Intake Oral 1400 ml 200 ml 3576 ml IV Total 4032 ml Output Urine Total 1200 ml 0 ml 4200 ml # Bowel Movements 0 0 0 Exam GENERAL: NAD, Pt laying in bed comfortably HEENT: AT/NC, PERRLA, EOMI, Mucus Membranes are moist CARDIAC: RRR; No M/R/G PULM: CTAB; No wheezes or rhonchi bilaterally NEURO: Alert and oriented x3; Following all commands PSYCH: Normal mood and affect IVs and Medications Medications Reviewed: Medications were reviewed in detail Lab and Diagnostics Result Diagram: 12/11/16 0620 12/11/16 0620 12-lead ECG Right bundle-branch block, no acute ischemic changes Additional Diagnostics EGD 12/08 FINDINGS: 1. Duodenum: There was some mild patchy erythema. No ulcers. No overt pathology appreciated. 2. Stomach: The patient had mild diffuse gastropathy. No ulcers. No mass lesions. No outlet obstruction. There was some bile-stained gastric fluid easily suctioned up with the endoscope. Retroflexed views of the LES were unremarkable apart from a mild hiatal hernia. 3. Esophagus: The squamocolumnar junction correlated with the top of the gastric folds. The GE junction was at about 42 cm from the incisors. The patient had linear exudate consistent with severe distal esophagitis up to about 36 cm from the incisors. The esophagus then appeared largely normal and then there was a small amount of mucositis seen up near the upper esophageal sphincter mechanism. I did not see any focal stricturing. We elected to brush the white exudate in the proximal esophagus to exclude the presence of ruben. 4. Oropharynx: There was obvious mucositis into the posterior oropharynx. Passage of the scope through this region and back initiated a small amount of heme from the friability. Nothing seemed to be sustained. This was easily suctioned with the endoscope. ENDOSCOPIC DIAGNOSES: 1. Moderate oropharyngeal mucositis. 2. Proximal mild esophageal mucositis brushed for exclusion of ruben. 3. Small sliding hiatal hernia. 4. Severe distal esophagitis. 5. Mild diffuse nonspecific gastroduodenoscopy. RECOMMENDATIONS: 1. Await VINNY wet prep results. I doubt this is going to be consistent with ruben. However, if we are surprised and it does shank turner positive, then I would recommend a full 21 day course of oral fluconazole therapy. 2. In the meantime, the patient should be allowed a full liquid to dysphagia consistency diet, and I would recommend sucralfate 10 mL four times a day. 3. We can leave the proton prep pump inhibitor infusion on until tomorrow morning and then convert over to twice daily oral therapy. 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 1. Dysphagia - Secondary to Oropharyngeal SCC - Status post EDG on 12/08 by GI which revealed severe esophagitis - Continue current medications per Palliative Care - Continue to push PO 2. Esophagitis, Severe - Continue PPI - Continue Sucralfate - GI has signed off 3. Depression - Continue home meds 4. Oropharyngeal SCC - Follow-up with Dr. Coronel as an outpatient 5. Disposition - Anticipate discharge to home in AM GI Prophylaxis: Proton Pump Inhibitor VTE Prophylaxis: Sub-Q Enoxaparin VTE Mechanical Devices: Intermittant Pneumatic CD Resuscitation Status: CPR: Attempt Resuscitation Isac Lewis MD Dec 11, 2016 13:32
--- NOTE | 2016-12-11 14:44 | PCM.PALLBR ---
Palliative Care Recommendation Summary of palliative recommendations: -Symptom management (Pain/other) Increased his scheduled hydromorphone to 6 mg PO Q4 hr. Increased IV hydromorphone to 2 mg IV Q2 hr. prn breakthrough pain. Added GI cocktail ( Maalox plus viscous Xylocaine) Q4 hr prn. Continue his Protonix and sucralfate as before. If his pain control remains poor and/or he is requiring frequent prn doses of medication for breakthrough pain, will increase his fentanyl patch on 12/12 to 75 micrograms. Also, continue his gabapentin at 600 mg HS Weight loss- encouraged more regular grazing with Ensure-aiming for 3-4 daily to maintain weight. Esophagitis/stomatitis- will continue acyclovir through the morning dose of 12/13 , then d/c and monitor. Steroids also scheduled for discontinuation after dose of 12/13. Insomnia-continue with mirtazapine at 30 mg HS Constipation-continue regular dosing of senna and or miralax -DPOA/Advanced Directives/POLST- DPOAHC =daughter Tarsha. He does not think his has the capacity and this is supported by Antony WHITE-oncology -Family/emotional support-limited. He is isolated by his anxiety/depression/ panic -Spiritual support-not interested Additional medical diagnoses with primary management by his hospitalist team include: 1. Dysphagia 2. Esophagitis, Severe 3. Depression 4. Oropharyngeal SCC Problems: End of Life Preferences He wishes FULL CODE status but states if truly EOL he is not interested in being prolonged with CPR/VENT Goals of Care He identifies wanting aggressive treatment including chemo radiation which he states he is only 1/2 way through He identifies that there are still things he wants to do but acknowledges his anx/depression is limiting him on this Disposition His plan is to go home but hopefully with better pain control. Resuscitation Status Resuscitation Status: CPR: Attempt Resuscitation POLST Updates/Changes Previous POLST?: No Artificially Admin Nutrition: Long-Term Nutrition by Tube Feeding (if necessary ) . Pain: Moderate Symptom management: Anxiety, Pain Total time 40 minutes; >50% face to face with patient, providing counselling regarding plans and recommendations, and in care coordination with his medical teams. Palliative Brief Note Date of Service Dec 11, 2016 . Returned to reevaluate patient. Prior to visiting, reviewed his updated records in the EMR in detail, spoke with bedside nurse and received signout from his previous palliative provider. On my arrival, he was resting quietly in bed. Awake, alert and appear to be in good spirits. Set that his pain control is very good yesterday but this morning is again suboptimal- pain 9/10 and he had just received some IV hydromorphone from the nurse. No other significant symptoms other than his chronic retrosternal/epigastric "burning". We reviewed his medications in detail and I suggested some modifications which he agreed with. Also talked about possible use of a GI cocktail prn and he was interested in trying that as well. Physical exam remains stable and unchanged. Nasim Hernandez MD Dec 11, 2016 14:44 hydromorphone from the nurse. No other significant symptoms other than his chronic retrosternal/epigastric "burning". We reviewed his medications in detail and I suggested some modifications which he agreed with. Also talked about possible use of a GI cocktail prn and he was interested in trying that as well. Physical exam remains stable and unchanged. Nasim Hernandez MD Dec 11, 2016 14:44
[2016-12-11] MEDS: LORazepam 0.5 mg Tablet PO PRN (22:29)
--- NOTE | 2016-12-11 23:42 | CCS NOTE ---
[facility] [address], [address] [address] MEDICAL ONCOLOGY OFFICE NOTE PATIENT: KRYSTIN GIBBS : 1955 MR#: [id number] DATE: 12/07/2016 JOB ID: [id number] DATE: 12/11/2016 SUBJECTIVE: The patient has started to improve in the degree of discomfort and dysphagia. He is the only being followed by palliative care medicine, and hospitalist team. He is getting liquids down and is on Dilaudid. OBJECTIVE: His lab studies show a white count that is still low around 2.2 with 60% neutrophils. Hemoglobin and platelet count stable. Kidney function has remained normal. He had grade 2 mucositis and grade 1 external radiation dermatitis on his neck. Abdomen was soft, no peripheral edema. He remains afebrile. ASSESSMENT: A 61-year-old gentleman with stage LISSETTE head and neck cancer on treatment with chemoradiation in the last portion of his treatment and expectedly increased toxicity in the oropharyngeal access with mucositis and a severe distal esophagitis. I have communicated with Dr. Reed of Radiation Oncology, and his radiation has been on hold over the past week. He will resume radiation on Thursday. His chemotherapy of next week will be canceled as it was this week as well to reduce the degree of toxicity and allow ability to continue and finish radiation without further interruptions. For details, please refer to my previous notes. He will be getting an injection of GRANIX 480 mcg today to accelerate white count recovery.
[2016-12-12] VITALS (8 sets, daily range): BP systolic 93–129; BP diastolic 50–78; PULSE 73–116; RESP 16–18; O2SAT 92–97
--- NOTE | 2016-12-12 05:15 | NUR ---
Pain / PICC line Throat pain continues, pt able to tolerate with oral pain medications. Able to swallow pills safely. PICC line flushes easily, unable to draw back any blood return. IV therapy notified for assessment. Hourly rounding ongoing.
[2016-12-12] MEDS: PrednisoLONE 1% 1 mL Ophthalmic Suspension BOTH_EYES SCH ×4 (06:24→20:30)
[2016-12-12] MEDS: Pantoprazole 40 mg ER24 Tablet PO SCH ×2 (06:33→16:52)
[2016-12-12] MEDS: Acyclovir 400 mg Tablet PO SCH ×2 (08:12→20:30)
[2016-12-12] MEDS: Dexamethasone 4 mg/mL Inj IVPUSH SCH (08:12)
[2016-12-12] MEDS: Sucralfate 100 mg/mL 10 mL Suspension PO SCH ×4 (08:12→20:30)
[2016-12-12] MEDS: Polyethylene Glycol (PEG) 17 Gm Powder PO SCH (08:13)
--- NOTE | 2016-12-12 08:57 | NUR ---
Social Work- Late Note 12/11/16- Continued D/C Planning Data: EMR reviewed. Pt is on day 5 of hospitalization for Upper GI Bleed and Throat Cancer per H&P. Pt has been seen by PT and ST, both have cleared pt for home with outpt follow up if necessary. Palliative Care is following pt. SW spoke with pt at bedside regarding [facility] referral and Home Health. Pt states that he would like a referral made to [facility]. Pt to receive RN for med management and [employer] to assist with [facility] application. Pt agreeable to this. [employer] faxed expedited [facility] referral with clinicals. Pt states his is only somewhat involved in his care and his daughter is not able to provide hands on assistance for a few more weeks, as she cannot take time off work. Pt states that he does not have a ride to radiation anymore, as he has missed the arranged [facility] rides 3 times. SW to follow up with [facility] regarding this. Pt also states he has no transportation home at discharge as his is reluctant to take time off work. SW encouraged him to speak with her and of the potential for a later evening discharge. Pt states he has no friends available, no money for a taxi. F2F in folder. SW will continue to follow. Assessment: Pt who would benefit from [facility] [employer] [employer] and [facility]. Plan: Pt to receive [facility] RN and [employer] to assist with [facility] process. Expedited [facility] referral faxed with clinicals. Pt is working on arranging transportation home from hospital and SW is working on transportation to and from radiation. F2F in folder. SW will continue to follow. Alicia Guevara MSW
[2016-12-12 09:07] LABS: BASOPHILS % (AUTO) 0.3 % (0-3); EOSINOPHILS % (AUTO) 0.6 % (0-5); Mean Corpuscular Hemoglobin 31.8 pg (27.0-35.0); Mean Corpuscular Volume 92.1 fL (81-100); NEUTROPHILS % (AUTO) 76.6 % (40-74); Platelet Count 131 bil/L (150-400)
--- NOTE | 2016-12-12 12:12 | NUR ---
Tele Per laundry tech pt up to the 180s while in the bathroom. aware. No s/s of chest pain and pt has no complaints of chest pain. Will continue to monitor. Addendum: 12/12/16 at 1338 by GREG FERNANDEZ RN Per laundry tech pt is sinus 76 with no episodes in the 180s since this morning.
--- NOTE | 2016-12-12 12:21 | PCM.PNMED ---
Subjective Date of Service Dec 12, 2016 Subjective Pt doing fairly well today. He states he is still having difficulty swallowing solids but is doing well with liquids. Pain is well controlled at present on current regimen. No other complaints or concerns at this time. Exam Vital Signs Vital Sign - Last Date Time Temp Pulse Resp B/P Pulse Ox O2 Delivery O2 Flow Rate FiO2 12/12/16 09:50 37.6 116 16 93/63 95 Room Air Intake and Output 12/11/16 12/11/16 12/12/16 Cumulative From/Thru 15:00 23:00 07:00 12/07/16 10:09 - 12/12/16 06:45 Intake Total 1030 ml 700 ml 9338 ml Output Total 1800 ml 900 ml 6900 ml Balance -770 ml -200 ml 2438 ml Intake Oral 1030 ml 700 ml 5306 ml IV Total 4032 ml Output Urine Total 1800 ml 900 ml 6900 ml # Bowel Movements 0 0 0 Exam GENERAL: NAD, Pt laying in bed comfortably HEENT: AT/NC, PERRLA, EOMI, Mucus Membranes are moist CARDIAC: RRR; No M/R/G PULM: CTAB; No wheezes or rhonchi bilaterally NEURO: Alert and oriented x3; Following all commands PSYCH: Normal mood and affect IVs and Medications Medications Reviewed: Medications were reviewed in detail Lab and Diagnostics Result Diagram: 12/12/16 0900 12/12/16 0900 12-lead ECG Right bundle-branch block, no acute ischemic changes Additional Diagnostics EGD 12/08 FINDINGS: 1. Duodenum: There was some mild patchy erythema. No ulcers. No overt pathology appreciated. 2. Stomach: The patient had mild diffuse gastropathy. No ulcers. No mass lesions. No outlet obstruction. There was some bile-stained gastric fluid easily suctioned up with the endoscope. Retroflexed views of the LES were unremarkable apart from a mild hiatal hernia. 3. Esophagus: The squamocolumnar junction correlated with the top of the gastric folds. The GE junction was at about 42 cm from the incisors. The patient had linear exudate consistent with severe distal esophagitis up to about 36 cm from the incisors. The esophagus then appeared largely normal and then there was a small amount of mucositis seen up near the upper esophageal sphincter mechanism. I did not see any focal stricturing. We elected to brush the white exudate in the proximal esophagus to exclude the presence of ruben. 4. Oropharynx: There was obvious mucositis into the posterior oropharynx. Passage of the scope through this region and back initiated a small amount of heme from the friability. Nothing seemed to be sustained. This was easily suctioned with the endoscope. ENDOSCOPIC DIAGNOSES: 1. Moderate oropharyngeal mucositis. 2. Proximal mild esophageal mucositis brushed for exclusion of ruben. 3. Small sliding hiatal hernia. 4. Severe distal esophagitis. 5. Mild diffuse nonspecific gastroduodenoscopy. RECOMMENDATIONS: 1. Await VINNY wet prep results. I doubt this is going to be consistent with ruben. However, if we are surprised and it does grouter helper positive, then I would recommend a full 21 day course of oral fluconazole therapy. 2. In the meantime, the patient should be allowed a full liquid to dysphagia consistency diet, and I would recommend sucralfate 10 mL four times a day. 3. We can leave the proton prep pump inhibitor infusion on until tomorrow morning and then convert over to twice daily oral therapy. 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 1. Dysphagia - Secondary to Oropharyngeal SCC - Status post EDG on 12/08 by GI which revealed severe esophagitis - Continue current medications per Palliative Care - Continue to push PO 2. Esophagitis, Severe - Continue PPI - Continue Sucralfate - GI has signed off - Continue IV Dexamethasone for 1 more day 3. Depression - Continue home meds 4. Oropharyngeal SCC - Follow-up with Dr. Coronel as an outpatient 5. Disposition - Anticipate discharge to home in AM GI Prophylaxis: Proton Pump Inhibitor VTE Prophylaxis: Sub-Q Enoxaparin VTE Mechanical Devices: Intermittant Pneumatic CD Resuscitation Status: CPR: Attempt Resuscitation Isac Lewis MD Dec 12, 2016 12:21
--- NOTE | 2016-12-12 12:43 | PCM.PALLBR ---
Palliative Care Recommendation Summary of palliative recommendations: -Symptom management (Pain/other) Increased his scheduled hydromorphone to 8 mg PO Q4 hr. Continue IV hydromorphone 2 mg IV Q2 hr. prn breakthrough pain (though he has not used any of this in the last 24 hours). Continue his Protonix and sucralfate as before. Also, continue his gabapentin at 600 mg HS Weight loss- encouraged more regular grazing with Ensure-aiming for 3-4 daily to maintain weight. Esophagitis/stomatitis- will continue acyclovir through the morning dose of 12/13 , then d/c and monitor. Steroids also scheduled for discontinuation after dose of 12/13. Insomnia-continue with mirtazapine at 30 mg HS Constipation-continue regular dosing of senna and or miralax -DPOA/Advanced Directives/POLST- DPOAHC =daughter Tarsha. He does not think his has the capacity and this is supported by Antony WHITE-oncology -Family/emotional support-limited. He is isolated by his anxiety/depression/ panic -Spiritual support-not interested Additional medical diagnoses with primary management by his hospitalist team include: 1. Dysphagia 2. Esophagitis, Severe 3. Depression 4. Oropharyngeal SCC Problems: End of Life Preferences He wishes FULL CODE status but states if truly EOL he is not interested in being prolonged with CPR/VENT Goals of Care He identifies wanting aggressive treatment including chemo radiation which he states he is only 1/2 way through He identifies that there are still things he wants to do but acknowledges his anx/depression is limiting him on this Disposition His plan is to go home but hopefully with better pain control. Resuscitation Status Resuscitation Status: CPR: Attempt Resuscitation POLST Updates/Changes Previous POLST?: No Artificially Admin Nutrition: Long-Term Nutrition by Tube Feeding (if necessary ) Total time 35 minutes; >50% face to face with patient, providing counselling regarding plans and recommendations, and in care coordination with his medical teams. Palliative Brief Note Date of Service Dec 12, 2016 . Returned to reevaluate patient. Prior to visiting, spoke with his bedside nurse and reviewed his updated records in the EMR in detail. On my arrival, he is resting comfortably in bed. Awake and alert. Says his pain control is much improved. He rates it 7/10. Continues to have dysphagia and did not tolerate the GI cocktail. We discussed possible changes to his pain medications. Ultimately, he decided he would like to increase the oral hydromorphone slightly. He has experienced no significant side effects from his narcotics- no confusion or drowsiness, no nausea, no constipation. On exam, pleasant though frail appearing gentleman sitting in bed. Vital signs noted. Skin is warm and dry. Head and neck exam without acute focal findings. Lungs clear anterior and posterior, heart sounds regular, abdomen soft, scaphoid and without peritoneal signs. Labs and imaging studies reviewed. Oncology note reviewed. Nasim Hernandez MD Dec 12, 2016 12:43
--- NOTE | 2016-12-12 14:49 | NUR ---
Social Work- Readiness for Discharge Data: EMR reviewed. Pt is on day 5 of hospitalization for Upper GI Bleed, Throat Cancer per H&P. Pt is not medically stable for discharge, anticipate 1-2 more days. CINDY spoke with pt's daughter, Tarsha, regarding discharge plan, SW role explained. Tarsha explained that she is concerned pt will be unable to manage his medical needs at home after discharge, discussed with SW potential of SNF. SNF choice list provided. CINDY explained SNF referral process, Tarsha will do some research but was agreeable for SW to make referrals to [facility], [facility], and [facility] in [place]. CINDY faxed facesheet and provided access to referrals. Tarsha also informed CINDY that pt has been approved for [facility], [facility] is [facility]. Pt is approved for 12 hours per week. CINDY met with pt at bedside regarding discharge plan. Pt agreeable to SNF referrals. CINDY explained that if pt were unable to go to SNF under [facility], pt could use Medicaid as payor with out of pocket cost. Pt declined this. CINDY reinforced pt's existing discharge plan of home with [facility] and [facility], which would be in place if pt is unable to discharge to SNF. [facility] faxed and in chart. Pt agreeable to this. CINDY spoke with Antony, oncology CINDY who states pt's transportation to radiation treatments is covered through Medicaid. Antony also requested SW fax [facility] transportation form to [facility] for HS transportation home from the hospital at time of discharge. SNF paperwork in chart. PASRR in folder. SW agreeable to this. Pt agreeable to plan. SW will continue to follow. Assessment: Pt who may benefit from SNF. Plan: Faxed referrals to [facility] , [facility], and [facility]. If patient unable to discharge to SNF, pt to discharge home with [facility] RN and [facility] caregiving. [facility] faxed and in chart. Pt may discharge home with [facility] transportation or to transport via POV. Pt updated and agreeable to plan. SW will continue to follow. MARK ANTHONY Mae
--- NOTE | 2016-12-12 16:06 | NUR ---
NUTRITION FOLLOW-UP: ASSESS: 61 YO M admitted for upper GI bleed and throat cancer. Per notes, pt has lost 75-80 lb over the past year mainly due to throat pain/decreased appetite. Per notes, pt was able to gain some weight back and then lost the weight again while undergoing chemo and radiation. Wt has ranged for 68 kg - 78 kg over the past 4 [address] has evaluated pt and placed him on a [place] thick Full Liquid diet which MD notes states pt can advance to a dysphagia Mechanical diet as swallowing pain improves. Pt continues to refuse meals but is drinking some of the ensures that we are sending. Per notes, pt likely not a candidate for PEG as pt only has about 2-3 weeks of treatment left. Palliative care is following. PMHX: right oropharyngeal CA, HTN, Depression LABS: Reviewed. MEDS: Reviewed. GI: 0 BM recorded yet. CURRENT WTS: 67 kg. UBW 114.5kg (230lbs) DIET: Dysphagia Mech and Full liquid diet, [place] thick, Chocolate ensure all trays and snacks. EST. NEEDS: ca/wt gain Kcals: 6760-6503 kcal/day (35-40 kcal/kg BW) Pro: 80-120 g/day (1.2-1.8 g/kg BW) NUTRITION DIAGNOSIS: 1.) Severe protein/kcal malnutrition related to oropharyngeal CA as evidence by decreased PO intake due to throat pain, severe weight loss and visible muscle/fat loss--PERSISTS. 2.) Inadequate oral intake related to throat pain as evidenced by refusal of po intake except fo ensure and broth x 3 days--PERSISTS. NUTRITION INTERVENTION: 1.) Diet per ST recommendations. 2.) Continue to send Chocolate Ensure all trays and TID between meals. MONITOR / EVAL: PO intake, weights, labs, nutrition status, POC. Continue to monitor per high nutrition risk guidelines.
--- NOTE | 2016-12-12 18:20 | NUR ---
Blood Pressure Blood pressure is running slightly low today. Paged palliative care to verify okay to give new increased dose of Dilaudid. MD aware and verified it was okay to give medication. Pt denies any dizziness or light headedness. Encouraged pt to drink fluids and will continue to monitor.
[2016-12-13 05:16] VITALS: BP 114/63; PULSE 71; RESP 16; O2SAT 98
[2016-12-13 05:31] VITALS: PULSE 72
--- NOTE | 2016-12-13 05:31 | NUR ---
Pain Pt reports that his throat has been considerably more painful through shift than previously, new pain regime providing adequate relief
[2016-12-13] MEDS: PrednisoLONE 1% 1 mL Ophthalmic Suspension BOTH_EYES SCH ×2 (06:27→12:22)
[2016-12-13] MEDS: Pantoprazole 40 mg ER24 Tablet PO SCH (06:27)
[2016-12-13] MEDS ORDERED: Fentanyl TOPICAL (08:57)
[2016-12-13] MEDS ORDERED: HYDR2TAB27 PO (08:57)
[2016-12-13] MEDS ORDERED: SENN-133 PO (08:57)
[2016-12-13] MEDS ORDERED: PANT40TA3 PO (08:57)
[2016-12-13] MEDS ORDERED: SUCR1ORA PO (08:57)
[2016-12-13] MEDS ORDERED: MIRT15TA6 PO (08:57)
[2016-12-13] MEDS ORDERED: GABA300C PO (08:57)
--- NOTE | 2016-12-13 08:58 | PCM.DIMED ---
Discharge Instructions Date of Service Dec 13, 2016 Dates of Hospitalization Dec 07, 2016 at 14:19 Discharge Diagnosis Discharge Diagnosis 1. Esophagitis/Mucositis 2. Head and Neck Cancer 3. Chronic Pain Syndrome 4. Severe Protein Malnutrition 5. Constipation 6. Restless Leg Syndrome Diet Heart Healthy Activity No restrictions Call your provider Fever or Chills, Shortness of breath, Bleeding, Chest pain, Vomitting, Excessive diarrhea, Weakness (unilateral) Patient Instructions Follow-up with PCP in: 1 week (Pt to call for an appointment.) Isac Lewis MD Dec 13, 2016 08:58
[2016-12-13] MEDS: Acyclovir 400 mg Tablet PO SCH (09:02)
[2016-12-13] MEDS: Polyethylene Glycol (PEG) 17 Gm Powder PO SCH (09:03)
[2016-12-13] MEDS: Dexamethasone 4 mg/mL Inj IVPUSH SCH (09:03)
[2016-12-13] MEDS: Sucralfate 100 mg/mL 10 mL Suspension PO SCH ×2 (09:03→12:22)
[2016-12-13 09:21] VITALS: PULSE 68
[2016-12-13 09:44] VITALS: BP 126/80; PULSE 99; RESP 19; O2SAT 96
--- NOTE | 2016-12-13 10:53 | PCM.DC.MED ---
Discharge Summary Date of Service Dec 13, 2016 Dates of Hospitalization Date of Hospital Admission Dec 07, 2016 at 14:19 Date of Discharge: Dec 13, 2016 Providers: Admitting Physician: Nasim Randhawa DO Primary Care Physician: Justo Bdeoya MD Attending Physician: Nasim Randhawa DO Diagnosis at Time of Discharge Diagnosis at Time of Discharge 1. Esophagitis/Mucositis 2. Head and Neck Cancer 3. Chronic Pain Syndrome 4. Severe Protein Malnutrition 5. Constipation 6. Restless Leg Syndrome Consultations 1. Gastroenterology 2. Oncology 3. Palliative Care Procedures ECG 12 Lead Right bundle-branch block, no acute ischemic changes Other Diagnostics EGD 12/08 FINDINGS: 1. Duodenum: There was some mild patchy erythema. No ulcers. No overt pathology appreciated. 2. Stomach: The patient had mild diffuse gastropathy. No ulcers. No mass lesions. No outlet obstruction. There was some bile-stained gastric fluid easily suctioned up with the endoscope. Retroflexed views of the LES were unremarkable apart from a mild hiatal hernia. 3. Esophagus: The squamocolumnar junction correlated with the top of the gastric folds. The GE junction was at about 42 cm from the incisors. The patient had linear exudate consistent with severe distal esophagitis up to about 36 cm from the incisors. The esophagus then appeared largely normal and then there was a small amount of mucositis seen up near the upper esophageal sphincter mechanism. I did not see any focal stricturing. We elected to brush the white exudate in the proximal esophagus to exclude the presence of ruben. 4. Oropharynx: There was obvious mucositis into the posterior oropharynx. Passage of the scope through this region and back initiated a small amount of heme from the friability. Nothing seemed to be sustained. This was easily suctioned with the endoscope. ENDOSCOPIC DIAGNOSES: 1. Moderate oropharyngeal mucositis. 2. Proximal mild esophageal mucositis brushed for exclusion of ruben. 3. Small sliding hiatal hernia. 4. Severe distal esophagitis. 5. Mild diffuse nonspecific gastroduodenoscopy. RECOMMENDATIONS: 1. Await VINNY wet prep results. I doubt this is going to be consistent with ruben. However, if we are surprised and it does heel turner positive, then I would recommend a full 21 day course of oral fluconazole therapy. 2. In the meantime, the patient should be allowed a full liquid to dysphagia consistency diet, and I would recommend sucralfate 10 mL four times a day. 3. We can leave the proton prep pump inhibitor infusion on until tomorrow morning and then convert over to twice daily oral therapy. Brief History PALLIATIVE CARE CONSULTATION Request from Dr. Randhawa, Patient states his insurance company also recommended consultation. Onc- Dr. Coronel Rad-onc- Dr. Aceves PCP- Dr. Bedoya 61 yo patient with progressive sore throat and odynophagia with eval in July noting a large tonsillar mass. 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 He has lost 75-80 # since onset of sx in july. He has started chemo and rad tx with very good results but has been having worsened pain and continued weight loss. He has also had worsened constipation which he had been treating with miralax but with his acute illness of dehydration and pain issues he had stopped his usual miralax. To his knowledge his malignancy is curable and he is counting on this. He was treated with MS ER 15 mg BID that was increased to 30 mg BID about 1 week ago. He states he took 2 of the 15 mg doses on 2 separate occasions and noted no change- in pain or SE. he was feeling more poorly with more pain and nausea and he feared the meds making that worse so his essentially did not go up on his dose.He was switched to fentanyl patch this AM so unclear if any benefit yet..He knows he has active stomatitis. He states this was swabbed. Other sx: constipation depression/anx/panic and insomnia. States doesn't go out of the house and in general doesn't like people. Traz caused nightmares. Gets only a few hours of sleep from diazepam 10 mg HS but his is able to manage home and nothing "past that". He identifies his daughter Tarsha Moreno as DPOAHC ([phone]). She lives and works in [place] and travels extensively. He is unaware if he has an AD but he thinks he might.He is not aware of what it might say. He is interested in all aggressive measures as long as he has chance of decent recovery. He has 1 son in [place] and his has a son in [place]. 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 1. Dysphagia - Secondary to Oropharyngeal SCC - Status post EDG on 12/08 by GI which revealed severe esophagitis - Continue Fentayl patch and Dilaudid 8 mg PO q4 hours PRN per Palliative Care - Continue to push PO fluids and solids - Continue Ensure TID with meals 2. Esophagitis, Severe - Continue PPI - Continue Sucralfate - GI has signed off 3. Depression - Continue home meds 4. Oropharyngeal SCC - Follow-up with Dr. Coronel as an outpatient 5. Disposition - Pt is discharged from hospital in fair/stable condition Exam Vital Signs (Last) Date Time Temp Pulse Resp B/P Pulse Ox O2 Delivery O2 Flow Rate FiO2 12/13/16 09:44 36.7 99 19 126/80 96 Room Air Exam GENERAL: NAD, Pt laying in bed comfortably HEENT: AT/NC, PERRLA, EOMI, Mucus Membranes are moist CARDIAC: RRR; No M/R/G PULM: CTAB; No wheezes or rhonchi bilaterally NEURO: Alert and oriented x3; Following all commands PSYCH: Normal mood and affect Test 12/07/16 11:10 12/07/16 15:05 12/08/16 03:15 12/12/16 09:00 Prothrombin Time 12.1sec (8.1-12.5) Prothromb Time International Ratio 1.13ratio Hold Coleman Top Tube Received (Received) Magnesium Level 1.8mg/dL (1.6-2.6) Total Bilirubin 0.8mg/dL (0.0-1.2) Aspartate Amino Transf (AST/SGOT) 11U/L (0-50) Alanine Aminotransferase (ALT/SGPT) 8U/L (0-44) Alkaline Phosphatase 46U/L (25-160) Total Protein 6.1g/dL (6.4-8.4) Albumin 3.8g/dL (3.4-5.0) White Blood Count 3.6th/mm3 (3.8-10.1) Red Blood Count 3.80mil/mm3 (4.40-5.80) Hemoglobin 12.1g/dL (13.8-17.2) Hematocrit 35.0% (41.0-50.0) Mean Corpuscular Volume 92.1fL (81-100) Mean Corpuscular Hemoglobin 31.8pg (27.0-35.0) Mean Corpuscular Hemoglobin Concent 34.6% (32.0-37.0) Red Cell Distribution Width 15.2% (12.3-15.4) Platelet Count 131bil/L (150-400) Neutrophils (%) (Auto) 76.6% (40-74) Lymphocytes (%) (Auto) 11.5% (14-46) Monocytes (%) (Auto) 11.0% (4-12) Eosinophils (%) (Auto) 0.6% (0-5) Basophils (%) (Auto) 0.3% (0-3) Sodium Level 134mEq/L (134-144) Potassium Level 3.7mEq/L (3.5-5.2) Chloride Level 93mEq/L (97-108) Carbon Dioxide Level 23mmol/L (18-29) Blood Urea Nitrogen 12mg/dL (8-27) Creatinine 0.57mg/dL (0.76-1.27) Estimat Glomerular Filtration Rate 153mL/min (>59) Glucose Level 99mg/dL (60-99) Calcium Level 8.9mg/dL (8.5-10.1) Test 12/13/16 04:50 Hold Purple Top Tube Received (Received) Hold Bannock Top Tube Received (Received) Discharge Medications Discharge Medications ([Fentanyl]) 1 PATCH PATCH 1 PATCH TOPICAL Q3D Prescribed by: ISAC NICHOLE MD Ascorbic Acid (Vitamin C) 1,000 Mg Tab.chew 1,000 MG PO DAILY (Reported) Aspirin (Aspirin) 325 Mg Tablet 325 MG PO DAILY (Reported) Diazepam (Diazepam) 5 Mg Tablet 10 MG PO HS (Reported) Escitalopram Oxalate (Escitalopram Oxalate) 5 Mg Tablet 5 MG PO DAILY (Reported ) Gabapentin (Neurontin) 300 Mg Capsule 600 MG PO HS Prescribed by: ISAC NICHOLE MD Hydromorphone (Dilaudid) 2 Mg Tablet 8 MG PO Q4H Prescribed by: ISAC NICHOLE MD Mirtazapine (Mirtazapine) 15 Mg Tablet 30 MG PO HS Prescribed by: ISAC NICHOLE MD Multivits-Min/FA/K/Lycopene (One-A-Day Men's 50+ Tablet) 1 Each Tablet 1 TABLET PO DAILY (Reported) Pantoprazole DR (Pantoprazole DR) 40 Mg Tablet.dr 40 MG PO BIDAC Prescribed by: ISAC NICHOLE MD Polyethylene Glycol 3350 (Polyethylene Glycol 3350) 17 Gm Powd.pack 17 GM PO DAILY (Reported) Prednisolone Acetate (Prednisolone Acetate) 5 Ml Drops.susp 5 ML BOTH_EYES QID ( Reported) Ranitidine (Ranitidine) 150 Mg Capsule 150 MG PO BID (Reported) Sennosides (Senna) 8.6 Mg Tablet 17.2 MG PO BID Prescribed by: ISAC NICHOLE MD Sodium Fluoride (Denta 5000 Plus) 51 Gm Cream..g. 51 GM DENTAL DAILY (Reported) Sucralfate (Sucralfate) 1 Gm/10 Ml Oral.susp 1,000 MG PO ACHS Prescribed by: ISAC NICHOLE MD Zinc Amino Acid Chelate (Zinc) 50 Mg Tablet 50 MG PO DAILY (Reported) As needed Acetaminophen (Acetaminophen) 500 Mg Tablet 500 MG PO Q6H PRN PRN For Pain ( Reported) Ondansetron ODT (Zofran ODT) 8 Mg Tablet 8 MG SL Q8H PRN PRN For Nausea ( Reported) Oxymetazoline HCl (Nasal Leslie Sinus) 30 Ml Leslie 30 ML NS PRN For Congestion ( Reported) Prochlorperazine Maleate (Compazine) 10 Mg Tablet 10 MG PO Q4H PRN PRN For Nausea (Reported) Followup Plan Discharge Diet: Heart Healthy Discharge Activity: No restrictions Follow-up with PCP in: 1 week (Pt to call for an appointment.) Time spent 35 minutes Isac Nichole MD Dec 13, 2016 10:53
--- NOTE | 2016-12-13 14:43 | NUR ---
DISCHARGE Patient's single lumen PICC was removed by IV therapy. Dressing applied. Throat and neck pain managed with scheduled dilaudid. Tolerating dysphagia mechanical diet without any problem. Meds taken whole without difficulty. Patient transferred to [facility], stood and transferred into wheelchair and left facility with transportation. Report called to LN @ [facility].
--- NOTE | 2016-12-13 15:08 | NUR ---
Social Work- Discharge Social Work- Readiness for Discharge Data: EMR reviewed. Pt is on day 6 of hospitalization for Upper GI Bleed, Throat Cancer per H&P. Pt to discharge today. CINDY spoke with [facility], who is agreeable to accepting pt today. CINDY spoke with admissions at [facility], who is unable to accepting pt at this time. CINDY faxed discharge orders to pt's [facility]. CINDY spoke with pt's daughter, Tarsha, regarding discharge plan, explained that [facility] is unable to accept pt at this time and pt has been accepted at [facility]. SW answered Tarsha's questions to apparent satisfaction, provided emotional support. SW spoke with pt regarding discharge to SNF vs. home and HH and [facility]. Pt agrees that he needs a higher level of care as he finishes his radiation. Pt is agreeable to discharge to [facility], provided emotional support to pt and answered questions to apparent satisfaction. CINDY updated [facility] regarding pt's change in discharge plan. CINDY created packet and faxed orders to [facility]. Transportation coordinated for 1430 via cabulance. Pt to discharge to [facility] via cabulance at 1430 with MD Blanco to follow. RN, UC, pt/family, and [facility] all updated and agreeable to plan. Assessment: Pt who will benefit from SNF. Plan: Pt to discharge to [facility] via cabulance at 1430 with MD Blanco to follow. RN, UC, [facility] [place], and pt/family all updated and agreeable to plan. Alicia Guevara, EAR NOSE THROAT SURGEON
--- NOTE | 2016-12-17 14:26 | NUR ---
Palliative care note D/A: Note that this worker did not find copy of DPOA for pt. Case discussed with Antony Coto [facility] who will try to research if DPOA present in CC charts and/or discuss further with pt dtr. Note that pt ended up going to SNF locally and that he was approved for [facility]-approx 12 hours a week. P: No further need for PC follow up at this time. Isaura MARIO [facility] Addendum: 12/17/16 at 1431 by FITZ FUCHS PC note amendment Dr. Hernandez discussed DPOA issues with pt who identified his dtr Tarsha as his DPOA but did not have current DPOA paperwork. Pt remained full code but noted that if he was felt to be at eol, would wish DNR/DNI. Isaura MARIO, [facility]
[2016-12-29] MEDS ORDERED: MED PLUS 2.0 PO (09:10)
[2016-12-29] MEDS ORDERED: DIF100A PO (09:10)
[2017-02-03] MEDS ORDERED: HYDR4TAB PO (14:22)
[2017-02-13] MEDS ORDERED: OMEP20CA11 PO (09:13)
== END 2016-12-13 14:32 | DRG 146 ==
LOC: SED 10:04 → OSC 14:19 → OBSVTOIN 14:19 → INTOOBSV 14:19
PROVIDERS: ADMIT Internal Medicine; ATTEND Internal Medicine
PROC: 0DB18ZX Excision of Upper Esophagus, Via Natural or Artificial Opening Endoscopic, Diagnostic (ICD-10-PCS; principal; 2016-12-08 15:00)
DX: C09.0 Malignant neoplasm of tonsillar fossa (principal); E43 Unspecified severe protein-calorie malnutrition; K92.0 Hematemesis; C77.0 Secondary and unspecified malignant neoplasm of lymph nodes of head, face and neck; K20.8 Other esophagitis; Z68.20 Body mass index [BMI] 20.0-20.9, adult; G89.4 Chronic pain syndrome; G25.81 Restless legs syndrome; I10 Essential (primary) hypertension; F32.9 Major depressive disorder, single episode, unspecified; Z87.891 Personal history of nicotine dependence; K21.9 Gastro-esophageal reflux disease without esophagitis; K12.33 Oral mucositis (ulcerative) due to radiation; Y84.2 Radiological procedure and radiotherapy as the cause of abnormal reaction of the patient, or of later complication, without mention of misadventure at the time of the procedure; Z51.5 Encounter for palliative care; R13.10 Dysphagia, unspecified

== ENCOUNTER 2017-01-07 10:57 | Inpatient (IN) | payer MEDICARE, MEDICAID ==
[~2017-01-07] VITALS: Ht 182.9 cm; Wt 63.4 kg
[~2017-01-07 10:57] MED LIST changes: +DIF100A PO; +Fentanyl TOPICAL; -GABA-504 PO; +GABA300C PO; +HYDR2TAB27 PO; +MED PLUS 2.0 PO; +MIRT15TA6 PO; -MORP30CA17 PO; -OXYC-474 PO; +PANT40TA3 PO; +SENN-133 PO; +SUCR1ORA PO
[2017-01-07 11:07] VITALS: BP 107/74; PULSE 78; RESP 13; O2SAT 97
--- NOTE | 2017-01-07 11:08 | ED.REPORT ---
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 He had radiation this morning, returned to [facility] and began experiencing severe chest pain, tightness, and "pressure." Upon arrival, medics found him severely hypotensive. Caretakers report that he has not been eating or drinking lately. Pt reports he has had intermittent chest pain a few times a week for the past several years. The chest pain is not associated with activity or exertion. He denies shortness of breath. He is not currently nauseous or vomiting, but he states that he would probably vomit a couple times today. He has never had a blood clot or heart attack. Nursing Notes Stated Complaint: CHEST PAIN Chief Complaint: Chest Pain Nursing Notes Reviewed: Yes Allergies: Coded Allergies: No Known Allergies (Unverified , 12/07/16) Scheduled ([Med Plus 2.0]) 90 ML PO TID Ascorbic Acid (Vitamin C) 1,000 Mg Tab.chew 1,000 MG PO DAILY Aspirin (Aspirin) 325 Mg Tablet 325 MG PO DAILY Diazepam (Diazepam) 5 Mg Tablet 10 MG PO HS Escitalopram Oxalate (Escitalopram Oxalate) 5 Mg Tablet 5 MG PO DAILY Gabapentin (Neurontin) 300 Mg Capsule 600 MG PO HS Hydromorphone (Dilaudid) 2 Mg Tablet 8 MG PO Q4H Mirtazapine (Mirtazapine) 15 Mg Tablet 30 MG PO HS Multivits-Min/FA/K/Lycopene (One-A-Day Men's 50+ Tablet) 1 Each Tablet 1 TABLET PO DAILY Pantoprazole DR (Pantoprazole DR) 40 Mg Tablet.dr 40 MG PO BIDAC Polyethylene Glycol 3350 (Polyethylene Glycol 3350) 17 Gm Powd.pack 17 GM PO DAILY Prednisolone Acetate (Prednisolone Acetate) 5 Ml Drops.susp 5 ML BOTH_EYES QID Ranitidine (Ranitidine) 150 Mg Capsule 150 MG PO BID Sennosides (Senna) 8.6 Mg Tablet 17.2 MG PO BID Sodium Fluoride (Denta 5000 Plus) 51 Gm Cream..g. 51 GM DENTAL DAILY Sucralfate (Sucralfate) 1 Gm/10 Ml Oral.susp 1,000 MG PO ACHS Zinc Amino Acid Chelate (Zinc) 50 Mg Tablet 50 MG PO DAILY Scheduled PRN Acetaminophen (Acetaminophen) 500 Mg Tablet 500 MG PO Q6H PRN PRN For Pain Ondansetron ODT (Zofran ODT) 8 Mg Tablet 8 MG SL Q8H PRN PRN For Nausea Oxymetazoline HCl (Nasal [place] Sinus) 30 Ml [place] 30 ML NS PRN For Congestion Prochlorperazine Maleate (Compazine) 10 Mg Tablet 10 MG PO Q4H PRN PRN For Nausea General Time Seen by MD: 11:07 Chief Complaint Chest pain Hx Obtained From: Patient Arrived By: Ambulance Sudden in Onset?: Yes Onset Occurred: 1 - 4 hours ago Symptom Duration: Since onset Location: : Chest Quality: Painful, Pressure Severity: Current: No pain currently Severity: Maximum: Mild Recent Healthcare: Recent doctor visit Similar Sx Previous: Yes Past Medical History Past Medical History Notes: Oncology: Dr. Homer Aceves for radiation oncology Dr. Crum at 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 Physical Exam Vital Signs Vital Signs Date Time Temp Pulse Resp B/P Pulse Ox O2 Delivery O2 Flow Rate FiO2 01/07/17 12:13 63 14 111/53 100 Nasal Cannula 2 01/07/17 11:33 72 13 102/61 98 Nasal Cannula 2 01/07/17 11:07 36.9 78 13 107/74 97 Room Air Initial VS: Reviewed Head / Eyes: Atraumatic, Normocephalic ENT: Mucous membranes moist, Conjunctiva normal Respiratory: Breath sounds normal, Clear to auscultation Abdomen / GI: Soft, Non-tender Extremities: Vascular intact, Neuro intact, No swelling Skin: Warm, Dry Cardiovascular: Heart rate NL, Regular rhythm left chest reproduceable pain Interpretation & Diagnostics Interpretation & Diagnostics: ANGIOGRAPHY CT IMPRESSION: 1. No pulmonary emboli. 2. Patchy airspace disease within the bilateral lower lobes and right middle lobe is suggestive of pneumonia. 3. Extensive centrilobular emphysema. 4. Small hiatal hernia. Mild prominence of the distal esophageal wall may be related to esophagitis and clinical correlation is recommended. Dictated by: Kendrick Lockhart M.D. on 01/07/2017 at 12:34 Approved by: Kendrick Lockhart M.D. on 01/07/2017 at 12:42 Lab Results Interpretation Result Diagram: 01/07/17 1130 01/07/17 1130 Test 01/07/17 11:30 White Blood Count 3.7th/mm3 (3.8-10.1) Red Blood Count 2.88mil/mm3 (4.40-5.80) Hemoglobin 9.3g/dL (13.8-17.2) Hematocrit 27.4% (41.0-50.0) Mean Corpuscular Volume 95.1fL (81-100) Mean Corpuscular Hemoglobin 32.3pg (27.0-35.0) Mean Corpuscular Hemoglobin Concent 33.9% (32.0-37.0) Red Cell Distribution Width 14.7% (12.3-15.4) Platelet Count 252bil/L (150-400) Neutrophils (%) (Auto) 77.2% (40-74) Lymphocytes (%) (Auto) 10.0% (14-46) Monocytes (%) (Auto) 11.1% (4-12) Eosinophils (%) (Auto) 1.4% (0-5) Basophils (%) (Auto) 0.3% (0-3) Prothrombin Time 12.9sec (8.1-12.5) Prothromb Time International Ratio 1.20ratio D-Dimer 2.82mg/L FEU (<0.50) Sodium Level 136mEq/L (134-144) Potassium Level 3.8mEq/L (3.5-5.2) Chloride Level 98mEq/L (97-108) Carbon Dioxide Level 26mmol/L (18-29) Blood Urea Nitrogen 9mg/dL (8-27) Creatinine 1.08mg/dL (0.76-1.27) Estimat Glomerular Filtration Rate 73mL/min (>59) Glucose Level 72mg/dL (60-99) Calcium Level 8.2mg/dL (8.5-10.1) Magnesium Level 1.0mg/dL (1.6-2.6) Total Bilirubin 0.4mg/dL (0.0-1.2) Aspartate Amino Transf (AST/SGOT) 11U/L (0-50) Alanine Aminotransferase (ALT/SGPT) 6U/L (0-44) Alkaline Phosphatase 50U/L (25-160) Troponin T < 0.010ug/L (0.0-0.011) Total Protein 6.3g/dL (6.4-8.4) Albumin 3.4g/dL (3.4-5.0) Hold Coleman Top Tube Received (Received) ECG Interpretation ECG Interpretation: T wave inversion in V1 no other ST changes Time: 11:34 Interpreted by: ED physician Normal ECG Interpretation: Normal sinus rhythm (rate 70) X-Ray Chest Interpretation Chest Xray Interpretation: IMPRESSION: Source of chest pain is not found. Dictated by: Colten Garcia M.D. on 01/07/2017 at 11:48 Approved by: Colten Garcia M.D. on 01/07/2017 at 11:48 View: Portable Interpretation / Wet Read by: Interpret - Radiologist Re-Eval/Medical Decision Med Decision/Clinical Course 61-year-old gentleman history of esophageal cancer on chemotherapy and radiation, hypertension, dementia currently at [facility] presenting with chest pain earlier today. Also with difficulty feeding the last couple weeks and he has been on dysphagia diet. Troponins are negative. CT [place] chest shows pneumonia and no PE. I discussed with his oncologist who is requesting a PICC line placed for TPN given patient's inability to feed due to dysphagia. I did discuss with them and [facility] doctor who reports the patient has been on a dysphagia diet and they are requesting PICC line for TPN as well. Of note, nervous and does not except TPN therefore patient will not be able to go back there on discharge. Broad spectrum antibiotics given for healthcare associated pneumonia. Time of Eval: 12:11 Re-Evaluation/Progress Note: Pt is c/o throat pain. Plan for hydromorphone. Time of Eval: 13:57 Re-Evaluation/Progress Note: Blood pressure is 91/44. Plan for 1 more L of fluid. Consultation #1: Referral / Consult Name: Luana Chadwick MD Consulted With: Hospitalist Call Returned at: 12:58 Note: Case discussed with doctor at [facility]. Plan to call and consult further with oncology. Consultation #2: Referral / Consult Name: Chivo Valadez MD Call Returned at: 13:47 Flexboard Operator: Agrees with eval, Agrees with plan, Accepts admit Note: Case discussed with oncology. He advises admission. Consultation #3: Referral / Consult Name: Kyleigh Bray DO Call Returned at: 14:10 Flexboard Operator: Agrees with eval, Agrees with plan Note: Case discussed. Dr. Bray agrees with plan. Counseled Regarding: Diagnosis, Lab results, Need for admission Discharge & Departure Primary Impression: Healthcare associated bacterial pneumonia Additional Impression: Failure to thrive Failure to thrive age range: in adult Qualified Code: R62.7 - Adult failure to thrive Disposition: ADMITTED TO HOSPITAL Discharge Condition All VS Reviewed: Yes Condition: Stable Referrals: Justo Bedoya MD (PCP) Scribe Attestation Portion of this note were transcribed by Kate Narvaez. I, Dr. Delaney, personally performed the history, physical exam, and medical decision-making: I reviewed and confirmed the accuracy for the information in the transcribed note. Signed by: goldy Beckman, 01/07/17 1400 copies to: Justo Bedoya MD, Ben M MD January 07, 2017 11:08 Kate aNrvaez January 07, 2017 11:50
[2017-01-07 11:33] VITALS: BP 102/61; PULSE 72; RESP 13; O2SAT 98
[2017-01-07 11:38] LABS: BASOPHILS % (AUTO) 0.3 % (0-3); EOSINOPHILS % (AUTO) 1.4 % (0-5); MONOCYTES % (AUTO) 11.1 % (4-12); Mean Corpuscular Hemoglobin 32.3 pg (27.0-35.0); Mean Corpuscular Volume 95.1 fL (81-100); NEUTROPHILS % (AUTO) 77.2 % (40-74); Platelet Count 252 bil/L (150-400)
--- NOTE | 2017-01-07 11:50 | DRSVH ---
PROCEDURE: X-RAY CHEST ONE VIEW, PORTABLE ([id number]) INDICATIONS: CHEST PAIN TECHNIQUE: One view of the chest was acquired. COMPARISON: [facility], CR, XR CHEST 1VW (PORTABLE), 12/07/2016, 10:34. [facility], CR, XR CHEST 1VW (PORTABLE), 08/23/2016, 23:36. FINDINGS: Surgical changes and devices: None. Lungs and pleura: No pleural effusions or pneumothorax. Lungs are clear. Mediastinum: Mediastinal contours appear normal. Heart size is normal. Bones and chest wall: No suspicious bony lesions. Overlying soft tissues appear unremarkable. IMPRESSION: Source of chest pain is not found. Dictated by: Colten Garcia M.D. on 01/07/2017 at 11:48 Approved by: Colten Garcia M.D. on 01/07/2017 at 11:48
[2017-01-07 11:58] LABS: INR 1.2 ratio
[2017-01-07 12:13] VITALS: BP 111/53; PULSE 63; RESP 14; O2SAT 100
[2017-01-07 12:35] LABS: TROPONIN T < 0.010 ug/L (0.0-0.011)
[2017-01-07] MEDS ORDERED: Ondansetron 2 mg/mL 2 mL Inj IVPUSH PRN (12:55)
--- NOTE | 2017-01-07 13:43 | DRSVH ---
PROCEDURE: CT ANGIO CHEST PULMONARY EMBOLISM ([id number]) INDICATIONS: chest pain elevated ddimer TECHNIQUE: After the administration of intravenous contrast, 2 mm thick sections acquired from the pulmonary api preet to the posterior costophrenic angles. 3-dimensional maximum intensity projection (MIP) coronal a nd sagittal reformats were then acquired through the thorax. For radiation dose reduction, the follo wing was used: automated exposure control, adjustment of mA and/or kV according to patient size. COMPARISON: None. FINDINGS: Image quality: Diagnostic. Pulmonary arteries: Pulmonary arteries are normal in size, and demonstrate no intraluminal filling d efects to suggest central pulmonary embolism. Lungs and pleura: Extensive centrilobular emphysema of the lungs is identified diffusely. There is n o lobar consolidation, effusion, or pneumothorax. However, mild patchy airspace disease is present w ithin the posterior left lower lobe, superior left lower lobe, right middle lobe, and potentially the posterior medial right lower lobe. No lung masses evident. No obvious pulmonary nodules are seen. However, evaluation for subtle nodules is difficult given the areas of airspace disease. No obvious nodules are appreciated. Mediastinum: Heart size is normal, without pericardial effusion. No mediastinal or hilar adenopathy . Thoracic aorta is normal in caliber and enhancement. There is coronary and aortic atherosclerosis . There is a small hiatal hernia. Mild prominence of the wall of the distal esophagus is present. Bones and chest wall: No suspicious bony lesions. Ribs and thoracic spine appear intact throughout. Thyroid gland is not enlarged. No axillary or supraclavicular adenopathy. Abdomen: There appears to be a small hepatic cyst. Otherwise, the imaged upper abdominal solid organ s appear normal in the early arterial phase of enhancement. IMPRESSION: 1. No pulmonary emboli. 2. Patchy airspace disease within the bilateral lower lobes and right middle lobe is suggestive of p neumonia. 3. Extensive centrilobular emphysema. 4. Small hiatal hernia. Mild prominence of the distal esophageal wall may be related to esophagitis and clinical correlation is recommended. Dictated by: Kendrick Lockhart M.D. on 01/07/2017 at 12:34 Approved by: Kendrick Lockhart M.D. on 01/07/2017 at 12:42
[2017-01-07] MEDS ORDERED: 0.9% Sodium Chloride 1,000 ML IV ONE (13:50)
[2017-01-07] MEDS ORDERED: levoFLOXacin Inj 750 MG in IV Premix 1 EACH IV ONE (13:50)
[2017-01-07] MEDS ORDERED: Vancomycin Dose per Pharmacist XX ONE (13:50)
[2017-01-07] MEDS ORDERED: Piperacillin-Tazo 3.375 Gm Inj 3.375 GM in Dextrose 5% Minibag Plus 50 ML IV ONE (13:50)
[2017-01-07] MEDS ORDERED: Magnesium Sulf 4 Gm/100 mL H2O 4 GM in IV Premix 1 EACH IV ONE (14:05)
[2017-01-07] MEDS ORDERED: Alum-Mag Hydrox-Simeth 30 mL Suspension PO PRN (14:20)
[2017-01-07] MEDS: D5 0.45% NaCl + KCl 20 mEq/L 1,000 ML IV SCH ×2 (14:20→18:48)
--- NOTE | 2017-01-07 14:20 | PCM.HPMED ---
Subjective Date of Service January 07, 2017 Primary Provider: Admitting Physician: Primary Care Physician: Justo Bedoya MD Attending Physician: Admit Status: From the Emergency Department Chief Complaint: Neck pain after radiation treatment, inability to eat History of Present Illness: The patient is a 61-year-old gentleman with locally advanced head and neck cancer undergoing chemoradiation. He has just finished his last set OF treatments. States that after today's radiation and chemotherapy, he felt severe pain in his neck. He has not been eating well. He states that he is making sure to drink ensure that having trouble eating foods and taking his pills. Patient has a history of dementia and is known to make up stories about health history and personal details. He is in need of a PICC line(patient will not accept a PEG tube, his daughter specifically talked to the ER staff about not putting in a PEG tube). His oncologist Dr. Kyrie Smiley is also aware of the situation and he recommends that patient receives her PICC line for temporary nutrition. Patient is in agreement with this plan. [facility] will not take patient back with the PICC line, he may need to be sent to life care. Patient is aware of this situation. The patient is giving history fairly comfortably, until his came to visit with him. Patient became irate, stated that his 's talks too much and dismissive of his . He denies recent fevers, chills, endorsing a bit of hemoptysis but not as bad as his prior admission, denies dyspnea, denies chest pain. However patient is not a relatively reliable historian according to both his oncologist and staff in the ER due to his dementia. In the ER CTA protocol showed bilateral pneumonia small half of her anemia, centrilobular emphysema, distal esophageal wall prominence. EKG only showed T- wave inversions in V1. His magnesium was found to be 1. Patient is admitted to the red team for Hap. He was given vancomycin, Zosyn, Levaquin in the ER. Review of Systems: Gen.: No weight gain patient has been having fevers and malaise Eyes: no visual disturbances or blurring vision HEENT: Throat pain as above, throat erythema Lymph: No lymph nodes noted Cardiac: No chest pain, orthopnea, PND, palpitations , pedal edema or +dyspnea on exertion Pulmonary: wheezing or bringing up of sputum + cough, GI: No anorexia nausea vomiting blood or black in the stool, positive for dysphagia, positive for ODYNOPHAGIA, : no dysuria hematuria urinary frequency or decrease in urine output Musculoskeletal: Joint swelling no joint pain no new muscle aches or back pain Neuro: No syncope, seizures no loss of consciousness no new focal weakness, numbness or tingling Psychiatric: New new anxiety insomnia or depression Endocrine: No new heat or cold intolerances Hematology: No lymphadenopathy or easy bleeding or bruising noted skin: No new rashes, stasis dermatitis Allergies Coded Allergies: No Known Allergies (Unverified , 12/07/16) PMH Social History Hx Alcohol Use: No Hx Substance Use: No Hx Tobacco Use: No Smoking Status: Former Smoker Exam Vital Signs Vital Sign - Last Date Time Temp Pulse Resp B/P Pulse Ox O2 Delivery O2 Flow Rate FiO2 01/07/17 12:13 63 14 111/53 100 Nasal Cannula 2 01/07/17 11:07 36.9 Exam General: NAD, sitting up in bed comfortable appearing HEENT: NCAT Eyes: [place] conjunctivae. No ptosis, PERRL Neck: No masses, trachea midline, no thyromegaly. His neck has a painful sunburn skin. Lymphatics no palpable lymphadenopathy Lungs: CTA with normal respiratory effort, mildly diminished in the lower lobes CV: RRR, no murmurs/rubs/gallops, normal PMI GI: Soft, non-tender with no hepatosplenomegaly MSK: Normal gait and station, no digital cyanosis Skin: Warm and dry. No rash, lesions or ulcers Psych: A&O X3, with appropriate affect Lab and Diagnostics Result Diagram: 01/07/17 1130 01/07/17 1130 Assessment & Plan This is a 60-year-old white male with history of oropharyngeal cancer who has just recently finished chemoradiation, is having trouble driving because of poor nutrition status. He is in need of a PICC line for nutrition. He is found to have pneumonia and a CT PE protocol in the ER Assessment #1 H health care associated pneumonia, POA -- Patient was recently sent to the rest of her just 2 weeks, not consistent with community-acquired -- Urine strep, urine legionella tests are ordered -- Pro-calcitonin as ordered -- Levaquin IV ABX 's at 750 mg IV daily -- Breathing treatments -- custodial staff complained about chest pain, though patient does not: This may be due to pneumonia. Assessment #2 . Poor nutrition status, failure to thrive -- PICC line is ordered -- Speech therapy/swallow study: They recommended a barium swallow study. This has been ordered -- D5 half with 20 of acute potassium 100 mL/h -- Pharmacy TPN consult Assessment #3 depression: -- We will hold by mouth meds Assessment #4 anxiety disorder: -- Patient takes Valium by mouth -- IV Ativan 1 mg twice a day when necessary Chronic pain due to chronic low back pain and also esophageal/oropharyngeal cancer -- Patient takes 8 mg of Dilaudid every 4 hours -- Replace this with 1 mg of Dilaudid every 3 hours IV when necessary -- He also has been no patches. Call Dr. Mittal who says that he would like for patient to be on 50 microgram patches every 48 hours. This has been ordered -- Hold gabapentin Dementia, chronic -- Continue to monitor CODE STATUS: Tay to verify CODE STATUS with daughter Tarsha Moreno Pain Evaluation: Adequate Pain Control GI Prophylaxis: Proton Pump Inhibitor VTE Prophylaxis: Sub-Q Heparin (Unfractionated) Resuscitation Status: CPR: Attempt Resuscitation Time spent 45 minutes Kyleigh Bray DO January 07, 2017 14:20
[2017-01-07] MEDS ORDERED: MINE105O TOP (14:35)
[2017-01-07] MEDS ORDERED: LACT-188 PO (14:39)
[2017-01-07] MEDS ORDERED: SUCR1TAB PO (14:39)
[2017-01-07] MEDS ORDERED: FENT1PAT9 TRANSDERM (14:42)
[2017-01-07] MEDS ORDERED: ACET325C PO (14:46)
[2017-01-07] MEDS ORDERED: Sodium Chloride LOK Flush 10 mL Syringe IVFLUSH PRN ×2 (15:10)
[2017-01-07] MEDS ORDERED: TPN Per Pharmacist XX ONE (15:20)
--- NOTE | 2017-01-07 15:43 | NUR ---
Evaluation completed. Please go to "Notes" then click on "Assessments and Notes" (bottom left corner of screen). Then select appropriate discipline tab on top of screen.
[2017-01-07 16:03] VITALS: BP 114/64; PULSE 61; RESP 18; O2SAT 99
--- NOTE | 2017-01-07 18:23 | CCS NOTE ---
[facility] [address], [address] [address] MEDICAL ONCOLOGY OFFICE NOTE PATIENT: KRYSTIN GIBBS : 1955 MR#: [id number] DATE: 01/07/2017 JOB ID: [id number] DATE: 01/07/2017 Patient was seen in the clinic yet today and was then seen in the ER and admitted. For details, please refer to my note associated with account of the office visit of today regarding further management.
[2017-01-07] MEDS: HYDROmorphone 1 mg/mL Inj IVPUSH PRN ×2 (18:52→21:55)
[2017-01-07] MEDS: Heparin 5,000 Unit/mL Inj SUBQ SCH (18:52)
[2017-01-07 19:27] VITALS: BP 109/63; PULSE 63; RESP 16; O2SAT 97
[2017-01-07] MEDS ORDERED: 0.9% Sodium Chloride 250 ML ONE (19:40)
[2017-01-07] MEDS: Famotidine Inj 20 MG in IV Premix 1 EACH IV SCH (19:51)
--- NOTE | 2017-01-07 19:56 | NUR ---
Arrival to 1023 Pt arrival from ED to 1023 at 1600, report taken from Manuelito Knutson. Magnesium replenishment and antibiotics infusing. Pt is alert and oriented to self. He c/o pain that is "pretty bad" but does not use a pain scale appropriately. Pt helped into bed and eager to rest. IV therapy consulted regarding PICC and plan will be to place first thing in the morning for TPN to start in the evening. Pt has 3 PIV that are asymptomatic and patent.
[2017-01-07] MEDS ORDERED: Vancomycin Inj 1,500 MG in 0.9% Sodium Chloride 500 ML IV SCH (20:30)
[2017-01-07 23:36] LABS: APPEARANCE,URINE CLEAR (CLEAR,HAZY); COLOR,URINE YELLOW (YELLOW); OCCULT BLOOD,URINE NEGATIVE (NEGATIVE); UROBILINOGEN,URINE NORMAL (NORMAL)
[2017-01-08] VITALS (7 sets, daily range): BP systolic 111–121; BP diastolic 58–67; PULSE 69–76; RESP 16–18; O2SAT 96–99
[2017-01-08] MEDS: HYDROmorphone 1 mg/mL Inj IVPUSH PRN ×3 (02:08→09:23)
[2017-01-08] MEDS: Heparin 5,000 Unit/mL Inj SUBQ SCH ×3 (02:08→15:52)
[2017-01-08] MEDS: D5 0.45% NaCl + KCl 20 mEq/L 1,000 ML IV SCH ×2 (02:58→22:16)
--- NOTE | 2017-01-08 04:01 | NUR ---
Pain Patient continues to c/o severe pain to throat area. When asked to rate pain, patient replies with "pretty bad". Receiving Dilaudid IVP for pain management with mildly effective results. Fentanyl patch remains in place. Noted to be resting with eyes closed intermittently throughout shift.
[2017-01-08 05:51] LABS: BASOPHILS % (AUTO) 0.4 % (0-3); EOSINOPHILS % (AUTO) 2.7 % (0-5); MONOCYTES % (AUTO) 12.4 % (4-12); Mean Corpuscular Hemoglobin 31.7 pg (27.0-35.0); Mean Corpuscular Volume 95.1 fL (81-100); Platelet Count 234 bil/L (150-400)
--- NOTE | 2017-01-08 06:04 | PCM.PNMED ---
Subjective Date of Service January 08, 2017 Subjective Patient is chatting with his , in no acute distress. States he detected his food for the evening because of throat pain. He knows he will get his food via his PICC line. Seen by palliative care, the patient is for care. He expresses no other concerns Exam Vital Signs Vital Sign - Last Date Time Temp Pulse Resp B/P Pulse Ox O2 Delivery O2 Flow Rate FiO2 01/08/17 04:13 36.8 70 16 111/65 97 Room Air 01/07/17 12:13 2 Intake and Output 01/07/17 01/07/17 01/08/17 Cumulative From/Thru 15:00 23:00 07:00 01/07/17 11:07 - 01/08/17 05:54 Intake Total 1000 ml 845 ml 0 ml 1845 ml Output Total 1010 ml 1010 ml Balance 1000 ml 845 ml -1010 ml 835 ml Intake Oral 0 ml 0 ml IV Total 1000 ml 845 ml 1845 ml Output Urine Total 1010 ml 1010 ml # Bowel Movements 1 1 Exam PROCEDURE: X-RAY BARIUM SWALLOW WITH FOOD & VIDEOGRAPHY ([id number]) IMPRESSION: 1. Tracheobronchial aspiration present with delayed cough response. 2. Vallecular and piriform sinus pooling noted. Thickening of the epiglottis which may be related to inflammation from radiation as well as neoplasm is seen on the PET/CT of 08/22/16. Dictated by: Sebastián Medina [facility] Interpreted: Samir Carrion MD on 01/08/2017 at 15:21 Transcribed by: CHUY on 01/08/2017 at 15:24 Approved by: Samir Carrion M.D. on 01/08/2017 at 16:17 IVs and Medications IV Fluids D5 half normal saline with 20 mEq of potassium, pharmacy to stop when they start the TPN infusion Medications Reviewed: Medications were reviewed in detail Lab and Diagnostics Result Diagram: 01/08/17 0513 01/07/17 1440 X-Rays, CTs and MRIs PROCEDURE: CT ANGIO CHEST PULMONARY EMBOLISM ([id number]) 1. No pulmonary emboli. 2. Patchy airspace disease within the bilateral lower lobes and right middle lobe is suggestive of pneumonia. 3. Extensive centrilobular emphysema. 4. Small hiatal hernia. Mild prominence of the distal esophageal wall may be related to esophagitis and clinical correlation is recommended. Dictated by: Kendrick Lockhart M.D. on 01/07/2017 at 12:34 Approved by: Kendrick Lockhart M.D. on 01/07/2017 at 12:42 Assessment & Plan This is a 60-year-old white male with history of oropharyngeal cancer who has just recently finished chemoradiation, is having trouble driving because of poor nutrition status. He is in need of a PICC line for nutrition. He is found to have pneumonia and a CT PE protocol in the ER Assessment #1 H health care associated pneumonia, POA -- Patient was recently sent to the rest of her just 2 weeks, not consistent with community-acquired -- Urine strep, urine legionella tests are ordered: Negative -- Pro-calcitonin as ordered -- Levaquin IV ABX 's at 750 mg IV daily -- Breathing treatments -- assisted staff complained about chest pain, though patient does not: This may be due to pneumonia. Assessment #2 . Poor nutrition status, failure to thrive -- PICC line is ordered: Patient is here to PICC line 01/08 -- Speech therapy/swallow study: They recommended a barium swallow study. This has been ordered. Speech recommends full liquid diet with honey thickened liquids. Patient has declined food 5/ pm -- D5 half with 20 of acute potassium 100 mL/h to be stopped when TPN starts -- Pharmacy TPN consult Assessment #3 depression: -- Restarted 01/08 Assessment #4 anxiety disorder: -- Patient takes Valium by mouth -- IV Ativan 1 mg twice a day when necessary Chronic pain due to chronic low back pain and also esophageal/oropharyngeal cancer -- Palliative care is managing the patient's pain pump Dementia, chronic -- Continue to monitor CODE STATUS: Tay to verify CODE STATUS with daughter Tarsha Moreno Disposition: Patient will be going to life care once his goal TPN rate is established, after his pneumonia has improved Pain Evaluation: Adequate Pain Control GI Prophylaxis: Proton Pump Inhibitor VTE Prophylaxis: Sub-Q Heparin (Unfractionated) Resuscitation Status: CPR: Attempt Resuscitation Time spent 20 min Kyleigh Bray DO January 08, 2017 06:03
[2017-01-08 06:26] LABS: Magnesium 1.5 mg/dL (1.6-2.6); Phosphorus 2.8 mg/dL (2.5-4.9)
[2017-01-08] MEDS: Pantoprazole 4 mg/mL 10 mL Inj IVPUSH SCH (07:54)
[2017-01-08] MEDS: Famotidine Inj 20 MG in IV Premix 1 EACH IV SCH (07:54)
[2017-01-08] MEDS ORDERED: Magnesium Sulf 2 Gm/50mL Water 2 GM in IV Premix 1 EACH IV ONE (08:55)
[2017-01-08] MEDS ORDERED: Potassium Chloride Inj 20 MEQ in Dextrose 5% 250 ML IV ONE (10:15)
--- NOTE | 2017-01-08 10:55 | NUR ---
Palliative Care Palliative Care received verbal order from Dr Bray 01/08/17 to assist with pain management. Patient is a 61 year old man with oropharyngeal cancer. He was admitted 01/07/17. Patient resides at a local SNF. Luisana Moreno () [phone] Tarsha Moreno (daughter) [phone] Palliative Care to follow. Franca Tong
--- NOTE | 2017-01-08 11:06 | NUR ---
Neurology TeacherCutting Machine Fixer note: Went to see patient in room 1023, but he was resting with his eyes closed. Per his Nurse, Deo, patient is scheduled for his Barium Swallow at 1430, then PICC line placement. I will follow up with patient most likely tomorrow since he has a busy schedule today. Notified DONATION SPECIALIST we were trying to work on arranging a Family conference, possibly if patient's daughter comes down to see him it could be arranged before he is discharged. Will continue to [facility] and provided assistance as needed. Batsheva Ross, RN, OCN hose testersenior shipping clerk
[2017-01-08] MEDS ORDERED: HYDROmorphone 0.5 mg/0.5 mL iSecure Syringe IVPUSH PRN (11:50)
--- NOTE | 2017-01-08 12:06 | PCM.CONPAL ---
Date of Service January 08, 2017 Date of Hospital Admission: January 07, 2017 at 14:29 Date of Palliative Consult: January 08, 2017 Requesting Provider: Kyleigh Bray DO Reason Palliative Care Consult: Pain (assistance with symptom management) Hospital Unit @time of consult: Orthopedic/Surgical Care Palliative Care Recommendation Unfortunate 61-year-old gentleman with oropharyngeal cancer, now hospitalized with intractable pain, possible healthcare associated pneumonia, progressive inanition and failure to thrive with associated malnutrition. Palliative medicine consulted to assist with symptom management. Summary of palliative recommendations: -Symptom management (Pain/other)- will continue his fentanyl patch, 50 g per hour, as requested by his oncologist. Will start opioid tolerant PRESS SETUP OPERATOR with hydromorphone, basal mode 0.2 mg/hr with 0.4 mg/hr PRESS SETUP OPERATOR Q15 min. Monitor response and adjust dosing as needed. Patient's body habitus (extremely lean with limited subcutaneous fat) makes him a suboptimal candidate for topical fentanyl. May need to transition to sustained-release morphine, methadone or other for better basal pain management. His usual diazepam, citalopram, gabapentin and mirtazapine are on hold since admission per his hospitalist. IV lorazepam per hospitalist. Should restart these usual oral psychotropic medications as able. PICC line placement pending, barium swallow pending, initiation of TPN pending. -DPOA/Advanced Directives/POLST- did not review today, given focus on pain management. At time of last discharge, remained full code, and oncology remains quite hopeful that he will ultimately have good response to therapy. -Family/emotional support- noted to be good in the past, though some distress evident at time of admission. Not surprising given his status and discomfort. Additional Medical Diagnoses with primary management by Hospitalist team include : Health care associated pneumonia, POA Poor nutrition status, failure to thrive Depression: Anxiety disorder: Chronic pain due to chronic low back pain and also esophageal/oropharyngeal cancer Dementia versus delirium, chronic, multifactorial Problems: End of Life Preferences Full code Goals of Care Control of symptoms and nutritional support Disposition To be determined Resuscitation Status Resuscitation Status: CPR: Attempt Resuscitation . Pain: Moderate Symptom management: Depression, Anxiety, Pain, Delirium Pt History History of Present Illness Per admission H&P: 61-year-old gentleman with locally advanced head and neck cancer undergoing chemoradiation. He has just finished his last set OF treatments. States that after today's radiation and chemotherapy, he felt severe pain in his neck. He has not been eating well. He states that he is making sure to drink ensure that having trouble eating foods and taking his pills. Patient has a history of dementia and is known to make up stories about health history and personal details. He is in need of a PICC line(patient will not accept a PEG tube, his daughter specifically talked to the ER staff about not putting in a PEG tube). His oncologist Dr. Kyrie Smiley is also aware of the situation and he recommends that patient receives her PICC line for temporary nutrition. Patient is in agreement with this plan. [facility] will not take patient back with the PICC line, he may need to be sent to [facility]. Patient is aware of this situation. Palliative medicine consulted to assist with symptom management/pain control. We are quite familiar with him, having followed closely during his last admission. Prior to visiting, I reviewed his updated records in the EMR in detail and spoke with his nurse. When I arrived, he is curled up in bed under the blankets. Sleeping but awakens easily. Continues to complain of pain 10/10 particularly in the throat. Stated that he had been using oral hydromorphone for pain- he cannot recall for certain but thinks that he was taking 8 mg of hydromorphone at least 4 or 5 times a day. He is not sure if he has been using a fentanyl patch previously, though his med reconciliation would suggest he was. He was discharged on hydromorphone, 8 mg every 4 hours last admission. Do note that he is somewhat forgetful and confused at times so his recall of history is questionable. He denied any shortness of breath, chest pain, abdominal pain, nausea. 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 GERD Depression Anxiety Psoriasis Hypertension Chronic back pain Surgical History Corneal transplant Right knee arthroscopy Medial meniscus to ut Chondroplasty of patellofemoral joint Left cubital tunnel release Anterior transposition of the ulnar nerve Social History Occupation: Medically disabled; Social Support: Support from his and daughter; admitting physician notes indicate some potential discord/stress exhibited between the patient and his Living Situation: Living at home with family usually, though had been discharged at the completion of his last hospitalization to [facility] Allergy Allergies Reviewed: Yes Medications Current Medications: Current Medications Ondansetron HCl 4 mg 4 mg Q15M PRN IVPUSH; Start 01/07/17 at 12:55 Vancomycin HCl/ Sodium Chloride 500 ml @ 333.333 mls/hr Q12 IV; Start 01/07/17 at 20:30; Status Cancel Al Hydrox/Mg Hydrox/Simethicone 30 ml Q6 PRN PO; Start 01/07/17 at 14:20 Ondansetron HCl Dose range: 4 mg to 8 mg Q4H PRN IVPUSH; Start 01/07/17 at 14:20 Acetaminophen 975 mg Q6H PRN PO; Start 01/07/17 at 14:20 Heparin Sodium (Porcine) 5000 unit 5,000 unit Q8 SUBQ Last administered on 07:54; Admin Dose 5,000 UNIT; Start 01/07/17 at 16:30 Potassium Chloride/Dextrose/ Sod Cl 1,000 ml @ 100 mls/hr Q10H IV Last administered on 01/08/17 02:58; Admin Dose 100 MLS/HR; Start 01/07/17 at 14:20; Stop 01/08/17 at 21:00 Famotidine/Sodium Chloride 20 mg/ Premix 50 ml @ 100 mls/hr Q12 IV Last administered on 01/08/17 07:54; Admin Dose 100 MLS/HR; Start 01/07/17 at 20:30; Stop 01/08/17 at 11:46; Status DC Levofloxacin/ Dextrose/Premix 150 ml @ 100 mls/hr Q24H IV; Start 01/08/17 at 15: 00 Fentanyl 1 patch Q2D TOPICAL Last administered on 01/07/17 18:51; Admin Dose 1 PATCH; Start 01/07/17 at 16:00 Oxymetazoline HCl 1 spray QID PRN NASAL; Start 01/07/17 at 15:10 Hydromorphone HCl 1 mg Q3H PRN IVPUSH Last administered on 01/08/17 09:23; Admin Dose 1 MG; Start 01/07/17 at 15:15; Stop 01/08/17 at 11:54; Status DC Pantoprazole 40 mg DAILYAC IVPUSH Last administered on 01/08/17 07:54; Admin Dose 40 MG; Start 01/08/17 at 07:30 Lorazepam 1 mg 1 mg BID PRN IVPUSH; Start 01/07/17 at 15:25 Total Parenteral Nutrition ml @ 0 mls/hr Q24H IV; Start 01/08/17 at 21:00 Hydromorphone HCl Dose Range: 0.5 mg to 1 mg Q1H PRN IVPUSH; Start 01/08/17 at 11:50 Scheduled ([Med Plus 2.0]) 90 ML PO TID Ascorbic Acid (Vitamin C) 1,000 Mg Tab.chew 1,000 MG PO DAILY Aspirin (Aspirin) 325 Mg Tablet 325 MG PO DAILY Diazepam (Diazepam) 5 Mg Tablet 10 MG PO HS Escitalopram Oxalate (Escitalopram Oxalate) 5 Mg Tablet 5 MG PO DAILY Fentanyl 50 mcg/hr Patch (Fentanyl 50 mcg/hr Patch) 50 mcg/hr Patch.td72 1 PATCH TRANSDERM Q3D Gabapentin (Neurontin) 300 Mg Capsule 600 MG PO HS Hydromorphone (Dilaudid) 2 Mg Tablet 8 MG PO Q4H Lactose-Reduced Food (Ensure Original) 237 Ml Liquid 237 ML PO 5XD Mineral Oil/Pet Hy-Phl (Aquaphor) 1 Applic/Gm Oint 1 APPLIC TOP BID Mirtazapine (Mirtazapine) 15 Mg Tablet 30 MG PO HS Multivits-Min/FA/K/Lycopene (One-A-Day Men's 50+ Tablet) 1 Each Tablet 1 TABLET PO DAILY Pantoprazole DR (Pantoprazole DR) 40 Mg Tablet.dr 40 MG PO BIDAC Polyethylene Glycol 3350 (Polyethylene Glycol 3350) 17 Gm Powd.pack 17 GM PO DAILY Prednisolone Acetate (Prednisolone Acetate) 5 Ml Drops.susp 1 DROP BOTH_EYES QID Ranitidine (Ranitidine) 150 Mg Capsule 150 MG PO BID Sennosides (Senna) 8.6 Mg Tablet 17.2 MG PO BID Sucralfate (Sucralfate) 1 Gm Tablet 1 GM PO QID Zinc Amino Acid Chelate (Zinc) 50 Mg Tablet 50 MG PO DAILY Scheduled PRN Acetaminophen (Acetaminophen) 325 Mg Capsule 650 MG PO Q4H PRN PRN For Pain Ondansetron ODT (Zofran ODT) 8 Mg Tablet 8 MG SL Q8H PRN PRN For Nausea Oxymetazoline HCl (Nasal [place] Sinus) 30 Ml [place] 1-2 SPRAYS NS QID PRN PRN For Congestion Prochlorperazine Maleate (Compazine) 10 Mg Tablet 10 MG PO Q4H PRN PRN For Nausea Objective Findings Exam Vital Sign - Last Date Time Temp Pulse Resp B/P Pulse Ox O2 Delivery O2 Flow Rate FiO2 01/08/17 08:07 36.8 70 16 121/67 96 Room Air 01/07/17 12:13 2 Intake and Output 01/07/17 01/07/17 01/08/17 Cumulative From/Thru 15:00 23:00 07:00 01/07/17 11:07 - 01/08/17 05:54 Intake Total 1000 ml 845 ml 0 ml 1845 ml Output Total 1010 ml 1010 ml Balance 1000 ml 845 ml -1010 ml 835 ml Intake Oral 0 ml 0 ml IV Total 1000 ml 845 ml 1845 ml Output Urine Total 1010 ml 1010 ml # Bowel Movements 1 1 Objective Frail, ill-appearing man lying in bed. Pale. Vital signs noted. Skin warm and dry. Lungs clear anterolaterally, heart sounds regular, abdomen soft and nontender. Lab/Diagnostics Lab and Imaging results reviewed in detail in EMR. Time spent Total time 75 minutes; >50% face to face with patient, providing counselling regarding plans and recommendations, and in care coordination with his medical teams. Nasim Hernandez MD January 08, 2017 12:06
--- NOTE | 2017-01-08 13:52 | NUR ---
PICC line Patient is pending PICC insertion and barium swallow. Denies pain or discomfort. Offered PRN pain medication prior to PICC insertion and states," no." will continue to monitor.
--- NOTE | 2017-01-08 13:52 | PCM.PHAPRO ---
Progress TPN Management: -new TPN start this evening for pt s/p chemo/radiation treatment with inability to eat/malnutrition and failure to thrive -current peripheral IV is D51/2NS + 20meq KCL at 100ml/hr -magnesium was repleted this morning with 2gm ivpb Mag Sulfate for a level of 1.5 -KCL 20meq ivpb was ordered for a K level of 3.3 -Famotidine 40mg added to TPN (ivpb doses discontinued) -PICC line to be placed this afternoon -macronutrients recommended by nutrition: AA 60gm, Dextrose 130gm, Lipids 30gm -Plan: will dc IV d51/2 with 20meq kcl at 2100 when TPN is initiated serial bmp's ordered and will check mag and phos the 1st few days formula for this evening: PARENTERAL NUTRITION ORDERS 1 - Standard Hang Time: 2100 Substrates Total kcal: 982 AMINO ACIDS 60 g DEXTROSE 130 g Total Volume (mL): 1300 LIPIDS 30 g Sterile Water for Injection QS mL To Infuse Over (hrs): 24 Total Volume 1300 mL At at a rate of (mL/hr): 54 Additives Sodium Chloride 80 mEq "typical" daily requirements Sodium Acetate 10 mEq Sodium 50-120mEq Potassium Chloride 50 mEq Potassium 60-120mEq Potassium Phosphate 30 mEq Phosphate 20-40mEq Calcium Gluconate 9 mEq Magnesium 8-32mEq Magnesium Sulfate 16 mEq Calcium 9-22mEq Acetate* 80-120mEq Chloride* 80-120mEq Regular Insulin units *Depending on acid-base status Famotidine 40 mg Multivitamins 1 std dose Insulin Regimen Trace Elements 1 std dose none Thiamine 100 mg Regular Low Intensity Subcut Folic Acid mg Regular Medium Intensity Subcut Ascorbic Acid mg Regular High Intensity Subcut Regular Insulin Infusion Other: Gretchen Brown [facility] January 08, 2017 13:52
--- NOTE | 2017-01-08 14:46 | NUR ---
Barium swallow patient went for barium swallow. Dr. boss aware and building supervisor Dilaudid will be started as patient patient gets back from barium swallow. IV therapy called for PICC insertion and aware that Patient is at barium swallow study.
[2017-01-08] MEDS: HYDROmorphone PCA 0.2 mg/mL 30 mL Inj IV PRN (15:14)
--- NOTE | 2017-01-08 15:20 | NUR ---
WATER TREATMENT PLANT ENGINEER Dilaudid WATER TREATMENT PLANT ENGINEER dilaudid started and settings verified with nurse.
--- NOTE | 2017-01-08 15:24 | DRSVH ---
PROCEDURE: X-RAY BARIUM SWALLOW WITH FOOD & VIDEOGRAPHY ([id number]) INDICATIONS: dysphagia TECHNIQUE: Examination was conducted in conjunction with speech pathology per standard protocol. In the lateral projection, filming was performed of the patient swallowing. AP projection filming may also be performed with patient swallowing. COMPARISON: [place], [place], PET NECK TO MID THIGH STD, 08/22/2016, 9:13. FINDINGS: Function: The oral preparatory phase appears normal, with proper containment. The subsequent oral pr opulsive phase, pharyngeal phase, and esophageal phase of swallowing also appear normal with all prof fered substances. Tracheobronchial aspiration is present with thin liquids and there is a delayed co ugh response. Mild persistent vallecular and piriform sinus pooling is noted. The attending physicia n was personally present in the room during the examination. Morphology: Epiglottis is thickened. It has relatively poor movement, probably contributing to aspira tion. No cricopharyngeal bar is identified. No cervical esophageal webs. No Zenker's diverticulum. No strictures. IMPRESSION: 1. Tracheobronchial aspiration present with delayed cough response. 2. Vallecular and piriform sinus pooling noted. Thickening of the epiglottis which may be related to inflammation from radiation as well as neoplasm is seen on the PET/CT of 08/22/16. Dictated by: Sebastián Medina Amaya Interpreted: Samir Carrion MD on 01/08/2017 at 15:21 Transcribed by: CHUY on 01/08/2017 at 15:24 Approved by: Samir Carrion M.D. on 01/08/2017 at 16:17
--- NOTE | 2017-01-08 15:25 | NUR ---
PICC Called IV therapy to let know patient back from barium swallow and aware.
[2017-01-08] MEDS: levoFLOXacin Inj 750 MG in IV Premix 1 EACH IV SCH (15:44)
--- NOTE | 2017-01-08 16:46 | NUR ---
NUTRITION ASSESSMENT: ASSESS: 61 YO M admitted for pneumonia, failure to thrive, neck pain and inability to eat. Pt has refused PEG tube placement in the past and will get a PICC line placed with initiation of TPN today. Per notes, pt has lost 75-80 lb over the past year mainly due to throat pain/decreased appetite. Pt was able to gain some weight back and then lost the weight again while undergoing chemo and radiation. PMHX: right esophageal/oropharyngeal CA, HTN, Depression LABS: Reviewed. K+ 3.3, Mg 1.5, Alb 3.4. MEDS: Reviewed. GI: BM x 1 today. CURRENT WTS: 64.1 kg. UBW 114.5kg (230lbs) DIET: Full liquid diet, Honey thick, Chocolate ensure all trays. Pt refusing PO intake. EST. NEEDS: ca/wt gain Kcals: 0565-5622 kcal/day (35-40 kcal/kg BW) Pro: 75-115 g/day (1.2-1.8 g/kg BW) Fluids: 3386-6697 mL (1 mL/kcal) NUTRITION DIAGNOSIS: 1.) Severe protein/kcal malnutrition related to oropharyngeal CA as evidence by decreased PO intake due to throat pain, severe weight loss and visible muscle/fat loss. 2.) Inadequate oral intake related to throat pain as evidenced by refusal of po intake. NUTRITION INTERVENTION: 1.) Diet per ST recommendations. 2.) TPN recommendations as follows: 130 g dextrose, 60 g Amino acids and 30 g lipids to provide 982 kcals and 60 g protein per day. As pt is at risk for refeeding syndrome, recommend slowly advancing TPN over the next 7-10 day while pay close attention to labs (Mg, Phos, K+, Glu, Etc.) to goal TPN of 350 g dextrose, 120 g Amino Acids and 60 g lipids to provide 2270 kcals and 120 g protein per day. MONITOR / EVAL: TPN start/tolerance/advancement, PO intake, weights, labs, nutrition status, POC. Continue to monitor per high nutrition risk guidelines.
--- NOTE | 2017-01-08 17:35 | NUR ---
PICC patient having PICC insertion at this time.
--- NOTE | 2017-01-08 18:09 | NUR ---
PICC PICC right upper arm
--- NOTE | 2017-01-08 18:55 | NUR ---
mentation patient is alert and oriented X3. Able to make needs known. Stable vital signs and oxygenation. Currently on MANUFACTURING INSPECTOR dilaudid as ordered with effective results for throat pain. patient went for barium swallow, picc line insertion to right upper arm. Dressing to right upper arm clean dry and intact. denies pain or discomfort to right upper arm. IV ABO as ordered for PNA with no adverse effects. per speech therapist only honey thick liquids to maintain swallow. patient refused dinner and states," i am not hungry, my throat hurts." Dr. Bray aware. call light with in reach for safety.
--- NOTE | 2017-01-08 19:51 | DRSVH ---
PROCEDURE: X-RAY PICC LINE PLACEMENT BY NURSE ([id number]) INDICATIONS: dysphagia COMPARISON: None. FINDINGS: PICC was placed by the intravenous therapy team from the right side. Fluoroscopic spot fi lm demonstrates tip of PICC in the superior vena cava above the right atrium. IMPRESSION: Tip of PICC lies within the superior vena cava. Dictated by: Samir Carrion M.D. on 01/08/2017 at 19:50 Approved by: Samir Carrion M.D. on 01/08/2017 at 19:50
[2017-01-08] MEDS: Total Parenteral Nutrition 1 BAG IV SCH (21:04)
[2017-01-09] VITALS (7 sets, daily range): BP systolic 118–137; BP diastolic 53–75; PULSE 63–69; RESP 16–18; O2SAT 97–98
[2017-01-09] MEDS: Clindamycin Inj 600 MG in IV Premix 1 EACH IV SCH ×3 (00:44→17:38)
[2017-01-09] MEDS: Heparin 5,000 Unit/mL Inj SUBQ SCH ×3 (00:44→15:31)
--- NOTE | 2017-01-09 02:41 | NUR ---
Pain/TPN Patient states he has no breakthrough pain currently and the Dilaudid DIRECTOR PRISON is keeping him comfortable. Receiving continuous dose, and education provided on using DIRECTOR PRISON button for patient controlled dose if needed on top of that. States understanding. Noted to be resting with eyes closed each time this RN has entered the room. FELDT score= 0. PICC placed earlier in day, flushing without issue. TPN started this evening. No a/e noted.
[2017-01-09] MEDS: HYDROmorphone PCA 0.2 mg/mL 30 mL Inj IV PRN ×3 (03:05→23:27)
[2017-01-09 05:22] LABS: Mean Corpuscular Hemoglobin 31.5 pg (27.0-35.0); Mean Corpuscular Volume 92.8 fL (81-100)
[2017-01-09 05:48] LABS: Magnesium 1.3 mg/dL (1.6-2.6); Phosphorus 3.3 mg/dL (2.5-4.9)
[2017-01-09] MEDS: Pantoprazole 4 mg/mL 10 mL Inj IVPUSH SCH (08:12)
[2017-01-09] MEDS ORDERED: Magnesium Sulf 4 Gm/100 mL H2O 4 GM in IV Premix 1 EACH IV ONE (08:30)
[2017-01-09 09:08] LABS: Unsaturated Iron Binding 76.9 ug/dL
[2017-01-09] MEDS ORDERED: HYDROmorphone PCA 0.2 mg/mL 30 mL Inj IV PRN (09:35)
--- NOTE | 2017-01-09 10:41 | NUR ---
Escitalopram Awaiting medication from pharmacy.
[2017-01-09] MEDS: Ondansetron 2 mg/mL 2 mL Inj IVPUSH PRN (11:05)
--- NOTE | 2017-01-09 11:38 | PCM.PALLBR ---
Palliative Care Recommendation Unfortunate 61-year-old gentleman with oropharyngeal cancer, now hospitalized with intractable pain, possible healthcare associated pneumonia, progressive inanition and failure to thrive with associated malnutrition. Palliative medicine consulted to assist with symptom management. Summary of palliative recommendations: -Symptom management (Pain/other)- will continue his fentanyl patch, 50 g per hour, as requested by his oncologist. Note, however, that patient's body habitus (extremely lean with limited subcutaneous fat) may limit the utility of topical fentanyl. Continue opioid tolerant PERSONNEL CLERKS SUPERVISOR with hydromorphone, basal mode increased to 0.3 mg/ hr with 0.4 mg/hr PERSONNEL CLERKS SUPERVISOR Q15 min. Monitor response and adjust dosing as needed. Obviously, he will need to be transitioned to long-acting oral/topical narcotics for maintenance (with additional IR narcotics for breakthrough pain). Consider eventual transition to sustained-release morphine, methadone or other for better basal pain management in the coming days. Will plan on monitoring his IV narcotic usage in the coming days, calculate equivalent MEDD and then make additional recommendations for transition to oral regimen. Restart of his usual diazepam, citalopram, gabapentin and mirtazapine per his hospitalist, consistent with his allowed oral intake given abnormality seen on barium swallow. IV lorazepam per hospitalist. PICC line placement and TPN initiated. -DPOA/Advanced Directives/POLST- did not review today, given focus on pain management. At time of last discharge, remained full code, and oncology remains quite hopeful that he will ultimately have good response to therapy. -Family/emotional support- noted to be good in the past, though some distress evident at time of admission. Not surprising given his status and discomfort. Additional Medical Diagnoses with primary management by Hospitalist team include : Health care associated pneumonia, POA Poor nutrition status, failure to thrive Depression: Anxiety disorder: Chronic pain due to chronic low back pain and also esophageal/oropharyngeal cancer Dementia versus delirium, chronic, multifactorial Problems: End of Life Preferences Full code Goals of Care Control of symptoms and nutritional support Disposition To be determined Resuscitation Status Resuscitation Status: CPR: Attempt Resuscitation . Pain: Moderate Symptom management: Pain Total time 55 minutes; >50% face to face with patient, spread across several visits through the day, providing counselling regarding plans and recommendations, and in care coordination with his medical teams. copies to: Justo Bedoya MD; Chivo Valadez MD Palliative Brief Note Date of Service January 09, 2017 . Returned to reevaluate patient. Prior to visiting, reviewed his updated records in the EMR in detail and spoke with his bedside nurse. When I arrived, he is lying in bed, in no distress. He looks considerably more comfortable today and says that he is feeling better, though he still rates his pain as 9/10. His goal would be to get his pain down to at least 5/10. We discussed options and decided to increase his basal mode, with plans for me to recheck later in the day and make additional adjustments. He thought this was satisfactory as he felt that his pain was still decreasing even before this change. Reviewed his barium swallow results with him. It appears he has a full liquid diet ordered but there is a question whether he is allowed pills. PICC line has been placed and TPN started. No other complaints at this time. His physical exam remained stable and essentially unchanged compared with yesterday. Nasim Hernandez MD January 09, 2017 11:38
--- NOTE | 2017-01-09 13:27 | NUR ---
Evaluation completed. Please go to "Notes" then click on "Assessments and Notes" (bottom left corner of screen). Then select appropriate discipline tab on top of screen.
--- NOTE | 2017-01-09 13:39 | PCM.PHAPRO ---
Progress Date of Service: January 09, 2017 Poor nutritional status, fail to thrive TPN management: - 1st TPN bag started @2100 5 with rate of 54ml/hr - Electrolytes are stable except magnesium consistently dropped @ 1.3 this am ( 1.3 <- 1.5 <- 1.8), repleted with 4G magnesium iv - Continue the same mixture as yesterday with increase in magnesium as follow: PARENTERAL NUTRITION ORDERS 2 - Standard Hang Time: 2100 Substrates Total kcal: 982 AMINO ACIDS 60 g DEXTROSE 130 g Total Volume (mL): 1300 LIPIDS 30 g Sterile Water for Injection QS mL To Infuse Over (hrs): 24 Total Volume 1300 mL At at a rate of (mL/hr): 54 Additives Sodium Chloride 80 mEq "typical" daily requirements Sodium Acetate 10 mEq Sodium 50-120mEq Potassium Chloride 50 mEq Potassium 60-120mEq Potassium Phosphate 30 mEq Phosphate 20-40mEq Calcium Gluconate 9 mEq Magnesium 8-32mEq Magnesium Sulfate 20 mEq Calcium 9-22mEq Acetate* 80-120mEq Chloride* 80-120mEq Regular Insulin units *Depending on acid-base status Famotidine 40 mg Multivitamins 1 std dose Insulin Regimen Trace Elements 1 std dose none Thiamine 100 mg Regular Low Intensity Subcut Folic Acid mg Regular Medium Intensity Subcut Ascorbic Acid mg Regular High Intensity Subcut Regular Insulin Infusion Other: Special Instructions: To be infused via central line only. For delay or interruption of TPN contact the pharmacist for alternative replacement solution. Pharmacy will continue to follow Thank you Consuelo Felipe January 09, 2017 13:39
--- NOTE | 2017-01-09 13:50 | NUR ---
Social work Note - Initial assessment Colten Moreno is a 61 yr old who was admitted for pneumonia. EMR reviewed: Pt has Medicare and [facility]. His PCP is Dr Bedoya. Readmit score is high 7. Pt is a readmit from 12/07/16 and was transferred to [facility] for rehab. He then was transferred by family request to [facility]. DPOA paperwork on chart. See attached CM initial assessment. HEAVY THREADER met with pt - pt has advancing dementia and is confused, asked that HEAVY THREADER call his daughter Tarsha Moreno [phone]. HEAVY THREADER spoke with Tarsha. She states that pt has gone down hill rapidly. He is in treatment for throat cancer - just about to finish radiation. He has lost weight - is unable to swallow and is requiring TPN by PICC. Daughter states that she does not want pt to return to SNF - states that she believes he gets the best care in the hospital and worries that he is being d/c too soon. Daughter wants pt to return to home - but states that there is no one with pt during the day because pt's is at work. She states that the family wants pt to remain in the hospital until he is able to eat on his own and no longer needs tpn. HEAVY THREADER asked her to make a back up plan for SNF - she refused. HEAVY THREADER explained [facility] - Daughter states she is aware of her rights under Medicare and will appeal d/c if she feels he is not ready to d/c. HEAVY THREADER discussed with SAUL RN and MD and will continue to follow. Assessment: Pt would benefit from SNF for TPN and Rehab. Plan; Family declining SNF and wants pt stable enough to return home without TPN. FABIANO Watt Addendum: 01/09/17 at 1359 by EZEKIEL SWEENEY Amended: Links added.
[2017-01-09] MEDS: levoFLOXacin Inj 750 MG in IV Premix 1 EACH IV SCH (15:20)
--- NOTE | 2017-01-09 16:17 | NUR ---
Pain/TPN Patient is alert and oriented X3. Able to make needs known. Stable vital signs. No sign and symptoms of breakthrough pain noted or reported by patient. Dr boss at bed side this morning and new orders for patient controlled dose and continuous dose and followed orders. New syringe is added once this shift. family at bed side. IV ABO as ordered with no adverse effects. c/o nausea once this AM with effective relief with antiemetic as ordered. Patient walked with physical therapy this shift. IV therapy at bed side for PICC line dressing change. TPN running as ordered via PICC line with out difficulty. Call light with in reach for safety. Stable mood. Continue to monitor.
--- NOTE | 2017-01-09 17:45 | PCM.PNMED ---
Subjective Date of Service January 09, 2017 Subjective The patient states his pain is improved as well as his cough. He had no overnight fevers or chills. No other concerns Exam Vital Signs Vital Sign - Last Date Time Temp Pulse Resp B/P Pulse Ox O2 Delivery O2 Flow Rate FiO2 01/09/17 15:17 36.8 63 16 128/72 98 Room Air 01/07/17 12:13 2 Intake and Output 01/08/17 01/08/17 01/09/17 Cumulative From/Thru 15:00 23:00 07:00 01/07/17 11:07 - 01/09/17 06:25 Intake Total 590 ml 1637 ml 4072 ml Output Total 400 ml 1410 ml Balance 590 ml 1237 ml 2662 ml Intake Oral 0 ml 0 ml IV Total 590 ml 1208 ml 3643 ml TPN/PPN 429 ml 429 ml Output Urine Total 400 ml 1410 ml # Bowel Movements 0 1 Exam General: NAD, sitting up in bed comfortable appearing HEENT: NCAT Eyes: Shaw conjunctivae. No ptosis, PERRL Neck: No masses, trachea midline, no thyromegaly. His neck has a painful sunburn skin. Lymphatics no palpable lymphadenopathy Lungs: CTA with normal respiratory effort, improved lung sounds CV: RRR, no murmurs/rubs/gallops, normal PMI GI: Soft, non-tender with no hepatosplenomegaly MSK: Normal gait and station, no digital cyanosis Skin: Warm and dry. No rash, lesions or ulcers Psych: A&O X3, with appropriate affect IVs and Medications IV Fluids TPN Medications Reviewed: Medications were reviewed in detail Lab and Diagnostics Result Diagram: 01/09/1710 01/09/17 0510 X-Rays, CTs and MRIs PROCEDURE: CT ANGIO CHEST PULMONARY EMBOLISM ([id number]) 1. No pulmonary emboli. 2. Patchy airspace disease within the bilateral lower lobes and right middle lobe is suggestive of pneumonia. 3. Extensive centrilobular emphysema. 4. Small hiatal hernia. Mild prominence of the distal esophageal wall may be related to esophagitis and clinical correlation is recommended. Dictated by: Kendrick Lockhart M.D. on 01/07/2017 at 12:34 Approved by: Kendrick Lockhart M.D. on 01/07/2017 at 12:42 Assessment & Plan This is a 60-year-old white male with history of oropharyngeal cancer who has just recently finished chemoradiation, is having trouble driving because of poor nutrition status. He is in need of a PICC line for nutrition. He is found to have pneumonia and a CT PE protocol in the ER Assessment #1 H health care associated pneumonia, POA -- Patient was recently sent to the rest of her just 2 weeks, not consistent with community-acquired -- Urine strep, urine legionella tests are ordered: Negative -- Pro-calcitonin as ordered -- Levaquin IV ABX 's at 750 mg IV daily, clindamycin IV was added 01/08 for anaerobic coverage -- Breathing treatments -- [facility] staff complained about chest pain, though patient does not: This may be due to pneumonia. Assessment #2 . Severe protein calorie malnutrition, failure to thrive -- PICC line is ordered: Patient is here to PICC line 01/08 -- Speech therapy/swallow study: They recommended a barium swallow study. This has been ordered. Speech recommends full liquid diet with honey thickened liquids. Patient has declined food 01/08 pm -- D5 half with 20 of acute potassium 100 mL/h to be stopped when TPN started -- Pharmacy TPN consult -- Need to discuss patient's home medications in tablet form the dietary. -- -- 1st TPN bag started @2100 01/08 with rate of 54ml/hr -- Nutrition is consulted "- Electrolytes are stable except magnesium consistently dropped @ 1.3 this am (1.3 <- 1.5 <- 1.8), repleted with 4G magnesium iv - Continue the same mixture as yesterday with increase in magnesium" Assessment #3 depression: -- Restarted home meds escitalopram, Mirtazipine on 01/08 Assessment #4 anxiety disorder: -- Patient takes Valium by mouth -- IV Ativan 1 mg twice a day when necessary -- Need to discuss patient's home medications in tablet form the dietary. Chronic pain due to chronic low back pain and also esophageal/oropharyngeal cancer -- Palliative care is managing the patient's pain pump -- Palliative care notes: "Will therefore increase his CURTAIN STITCHER prn dose to 0.5 mg Q 15 min while continuing basal rate at 0.4 mg/hr." + fentanyl patch 50 mcg Q48H Dementia, chronic -- Continue to monitor Hypomagnesemia: Patient has been hypomagnesemic since admission -- We will continue to monitor and replace -- He was given 4 mg IV 5/5 a.m. CODE STATUS: Tay to verify CODE STATUS with daughter Tarsha Moreno [phone] Disposition: [facility] be [facility] to [facility] once his goal TPN rate is established, after his pneumonia has improved. Per Dr. Hernandez, wants patient to stay here for the entire duration of his TPN which could be 3-4 weeks , in the hospital. She would like to contest the discharge when we feel he is ready for the discharge. Pain Evaluation: Adequate Pain Control GI Prophylaxis: Proton Pump Inhibitor VTE Prophylaxis: Sub-Q Heparin (Unfractionated) Resuscitation Status: CPR: Attempt Resuscitation Time spent 20 minutes Kyleigh Bray DO January 09, 2017 17:06
--- NOTE | 2017-01-09 19:18 | CCS NOTE ---
[facility] [address], [address] [address] MEDICAL ONCOLOGY OFFICE NOTE PATIENT: KRYSTIN GIBBS : 1955 MR#: [id number] DATE: 01/07/2017 JOB ID: [id number] DATE: 01/09/2017 SUBJECTIVE: The patient was admitted on Thursday because of failure to thrive and pneumonia. The pneumonia most likely is due to aspiration but the patient is not febrile and is on antibiotics. PICC line has been placed and TPN has been started as requested. He finished his radiation therapy on January for his locally advanced head and neck cancer and has also completed chemotherapy. He is more alert and oriented today. His oral cavity shows residual mucositis that is recovering. No evidence of yeast infection. Lungs clear. Abdomen is soft. He has a PICC line in the right upper arm. He has also additional peripheral IV. LAB STUDIES: Show stable creatinine and blood counts. ASSESSMENT AND PLAN: A 61-year-old gentleman with locally advanced head and neck cancer who has completed chemoradiation on January . On January 06, he had issues with failure to thrive and cognitive impairment and mucositis causing severe malnutrition. Details are summarized in my notes of January 07. TPN has been started with a new PICC line. He is already looking slightly better, degree of confusion after fentanyl patch was reduced to 50 mcg again. I suspect that he will require several weeks of TPN, probably around 3-4 weeks of TPN support until he has recovered from the mucositis and be able to maintain his nutrition. Therefore, at the time of discharge, he could likely be discharged to [facility] as they had in the past have been agreeable to continue TPN at the retirement facility there.
[2017-01-09] MEDS: Total Parenteral Nutrition 1 BAG IV SCH (21:12)
[2017-01-10] VITALS (8 sets, daily range): BP systolic 125–133; BP diastolic 66–74; PULSE 64–69; RESP 1–18; O2SAT 96–99
[2017-01-10] MEDS: Heparin 5,000 Unit/mL Inj SUBQ SCH ×3 (00:50→17:12)
[2017-01-10] MEDS: Clindamycin Inj 600 MG in IV Premix 1 EACH IV SCH ×3 (00:50→17:12)
--- NOTE | 2017-01-10 02:53 | NUR ---
Swallowing/Pain [employer]OR[employer]AT [employer]ARD dose increased on day shift. Patient resting with eyes closed all of shift so far, but awakens easily. Has been A&O all of shift so far. Pleasant and cooperative with care. No c/o breakthrough pain or discomfort. FELDT score=0. Per MD, okay to give PO meds if meds crushed finely and given in applesauce or pudding. HS oral medications given without difficulty. Encouraging patient to increase oral intake of HTL per ST. Patient has only taken a few sips all of shift so far. No s/sx of aspiration noted.
[2017-01-10 06:30] LABS: Magnesium 1.7 mg/dL (1.6-2.6); Phosphorus 5.4 mg/dL (2.5-4.9)
[2017-01-10 08:09] LABS: Vitamin B12 >1999 pg/mL (211-946)
--- NOTE | 2017-01-10 08:51 | NUR ---
NUTRITION ASSESSMENT: ASSESS: 61 YO M admitted with pneumonia, failure to thrive, neck pain and inability to eat. Pt has refused PEG tube placement in the past but is status post PICC line placed with initiation of TPN 01/08. Per notes, pt has lost 75-80 lb over the past year, mainly due to throat pain, mucositis, decreased appetite. Pt was able to gain some weight back and then lost the weight again while undergoing chemo and radiation, which he has now completed. He is refusing all PO except for applesauce when oral medication is required. Barium swallow ordered and is pending. PMHX: Right esophageal/oropharyngeal CA, HTN, depression, severe malnutrition. LABS: Reviewed. Phos 5.4. MEDS: Reviewed. Remeron, fentanyl. GI: BM x 1 (01/08). WT: 64.1 kg, BMI 19.0 kg/m2. Admit weight: 64.1 kg. UBW 114.5kg (230lbs) DIET: Full liquid diet, Honey thick, Chocolate ensure all trays. Pt refusing PO intake. TPN: 130 g dextrose, 60 g Amino acids and 30 g lipids to provide 982 kcals and 60 g protein per day. EST. NEEDS: ca/wt gain Kcals: 5072-3178 kcal/day (35-40 kcal/kg BW) Pro: 75-115 g/day (1.2-1.8 g/kg BW) Fluids: 5942-2640 mL (1 mL/kcal) NUTRITION DIAGNOSIS: 1) Severe protein/kcal malnutrition related to oropharyngeal CA as evidence by decreased PO intake due to throat pain, severe weight loss and visible muscle/fat loss - PERSISTS. 2) Chewing swallowing difficulties related to mucositis, as evidenced by pt. refusal of PO intake, request by ST for barium swallow. NUTRITION INTERVENTION: 1) Diet per ST recommendations. 2) Recommend continue same TPN over weekend, pending resolution of refeeding risk. Recommend slowly advancing TPN over the next 7-10 day while pay close attention to labs (Mg, Phos, K+, Glu, Etc.) to goal TPN of 350 g dextrose, 120 g Amino Acids and 60 g lipids to provide 2270 kcals and 120 g protein per day. MONITOR / EVAL: TPN tolerance/advancement, PO intake, weights, labs, nutrition status, POC. Continue to monitor per high nutrition risk guidelines. Addendum: 01/10/17 at [address] Per discussion with Dr. Bray, pt. to discharge tomorrow if he can tolerate nocturnal TPN. Requested Dr. Bray write order to Pharmacy to run TPN tonight over 12 hr to determine tolerance prior to discharge tomorrow. Dr. Bray requested I clarify safety of giving medications crushed in applesauce. As texture is honey thick full liquids, it is my understanding that this should be safe. Left message for Speech Therapy to verify with Dr. Bray.
--- NOTE | 2017-01-10 09:01 | NUR ---
Pt was sleeping peacefully and was not disturbed. Discussed oral comfort (i.e., oral care, ice chips in moderation) and option to sign diet AMA form with nursing. [employer] will follow up tomorrow.
[2017-01-10] MEDS: Ondansetron 2 mg/mL 2 mL Inj IVPUSH PRN (10:00)
[2017-01-10] MEDS: Pantoprazole 4 mg/mL 10 mL Inj IVPUSH SCH (10:00)
--- NOTE | 2017-01-10 10:02 | NUR ---
[facility] signed
--- NOTE | 2017-01-10 10:39 | PCM.PHAPRO ---
Progress Poor nutritional status, fail to thrive TPN #10 I. Volume status/VS II. Chem III. Glucose IV. Substrate/misc PARENTERAL NUTRITION ORDERS 10 10-Jan-17 Standard Hang Time: 2100 Substrates Total kcal: 835 AMINO ACIDS 40 g DEXTROSE 125 g Total Volume (mL): 1650 LIPIDS 25 g Sterile Water for Injection QS mL To Infuse Over (hrs): 24 Total Volume 1650 mL At at a rate of (mL/hr): 69 Additives Sodium Chloride 60 mEq "typical" daily requirements Sodium Acetate 30 mEq Sodium 50-120mEq Potassium Chloride 50 mEq Potassium 60-120mEq Potassium Phosphate 10 mEq Phosphate 20-40mEq Calcium Gluconate 12 mEq Magnesium 8-32mEq Magnesium Sulfate 6 mEq Calcium 9-22mEq Acetate* 80-120mEq Chloride* 80-120mEq Regular Insulin 5 units *Depending on acid-base status Famotidine mg Multivitamins 1 std dose Insulin Regimen Trace Elements 1 std dose none Thiamine mg Regular Low Intensity Subcut x Folic Acid mg Regular Medium Intensity Subcut Ascorbic Acid mg Regular High Intensity Subcut Regular Insulin Infusion Other: Elijah Nevarez Pharm D January 10, 2017 10:39
--- NOTE | 2017-01-10 12:14 | PCM.DC.MED ---
Discharge Summary Date of Service January 10, 2017 Dates of Hospitalization Date of Hospital Admission January 07, 2017 at 14:29 Providers: Admitting Physician: Kyleigh Finch DO Primary Care Physician: Justo Bedoya MD Attending Physician: Kyleigh Finch DO Procedures XRay, CTs & MRIs PROCEDURE: CT ANGIO CHEST PULMONARY EMBOLISM ([id number]) 1. No pulmonary emboli. 2. Patchy airspace disease within the bilateral lower lobes and right middle lobe is suggestive of pneumonia. 3. Extensive centrilobular emphysema. 4. Small hiatal hernia. Mild prominence of the distal esophageal wall may be related to esophagitis and clinical correlation is recommended. Dictated by: Kendrick Lockhart M.D. on 01/07/2017 at 12:34 Approved by: Kendrick Lockhart M.D. on 01/07/2017 at 12:42 Other Diagnostics NUTRITION ASSESSMENT: ASSESS: 61 YO M admitted with pneumonia, failure to thrive, neck pain and inability to eat. Pt has refused PEG tube placement in the past but is status post PICC line placed with initiation of TPN 01/08. Per notes, pt has lost 75- 80 lb over the past year, mainly due to throat pain, mucositis, decreased appetite. Pt was able to gain some weight back and then lost the weight again while undergoing chemo and radiation, which he has now completed. He is refusing all PO except for applesauce when oral medication is required. Barium swallow ordered and is pending. PMHX: Right esophageal/oropharyngeal CA, HTN, depression, severe malnutrition. LABS: Reviewed. Phos 5.4. MEDS: Reviewed. Remeron, fentanyl. GI: BM x 1 (01/08). WT: 64.1 kg, BMI 19.0 kg/m2. Admit weight: 64.1 kg. UBW 114.5kg ( 230lbs) DIET: Full liquid diet, Honey thick, Chocolate ensure all trays. Pt refusing PO intake. TPN: 130 g dextrose, 60 g Amino acids and 30 g lipids to provide 982 kcals and 60 g protein per day. EST. NEEDS: ca/wt gain Kcals: 4380-8531 kcal/day (35-40 kcal/kg BW) Pro: 75-115 g/day (1.2-1.8 g/kg BW) Fluids: 6732-6215 mL (1 mL/kcal) NUTRITION DIAGNOSIS: 1) Severe protein/kcal malnutrition related to oropharyngeal CA as evidence by decreased PO intake due to throat pain, severe weight loss and visible muscle /fat loss - PERSISTS. 2) Chewing swallowing difficulties related to mucositis, as evidenced by pt. refusal of PO intake, request by ST for barium swallow. NUTRITION INTERVENTION: 1) Diet per ST recommendations. 2) Recommend continue same TPN over weekend, pending resolution of refeeding risk. Recommend slowly advancing TPN over the next 7-10 day while pay close attention to labs (Mg, Phos, K+, Glu, Etc.) to goal TPN of 350 g dextrose, 120 g Amino Acids and 60 g lipids to provide 2270 kcals and 120 g protein per day. MONITOR / EVAL: TPN tolerance/advancement, PO intake, weights, labs, nutrition status, POC. Continue to monitor per high nutrition risk guidelines. Brief History Per admission H&P: 61-year-old gentleman with locally advanced head and neck cancer undergoing chemoradiation. He has just finished his last set OF treatments. States that after today's radiation and chemotherapy, he felt severe pain in his neck. He has not been eating well. He states that he is making sure to drink ensure that having trouble eating foods and taking his pills. Patient has a history of dementia and is known to make up stories about health history and personal details. He is in need of a PICC line(patient will not accept a PEG tube, his daughter specifically talked to the ER staff about not putting in a PEG tube). His oncologist Dr. Kyrie Smiley is also aware of the situation and he recommends that patient receives her PICC line for temporary nutrition. Patient is in agreement with this plan. [facility] will not take patient back with the PICC line, he may need to be sent to life care. Patient is aware of this situation. Palliative medicine consulted to assist with symptom management/pain control. We are quite familiar with him, having followed closely during his last admission. Prior to visiting, I reviewed his updated records in the EMR in detail and spoke with his nurse. When I arrived, he is curled up in bed under the blankets. Sleeping but awakens easily. Continues to complain of pain 10/10 particularly in the throat. Stated that he had been using oral hydromorphone for pain- he cannot recall for certain but thinks that he was taking 8 mg of hydromorphone at least 4 or 5 times a day. He is not sure if he has been using a fentanyl patch previously, though his med reconciliation would suggest he was. He was discharged on hydromorphone, 8 mg every 4 hours last admission. Do note that he is somewhat forgetful and confused at times so his recall of history is questionable. He denied any shortness of breath, chest pain, abdominal pain, nausea. Hospital Course This is a 60-year-old white male with history of oropharyngeal cancer who has just recently finished chemoradiation, is having trouble driving because of poor nutrition status. He is in need of a PICC line for nutrition. He is found to have pneumonia and a CT PE protocol in the ER Assessment #1 H health care associated pneumonia, POA -- Patient was recently sent to the rest of her just 2 weeks, not consistent with community-acquired -- Urine strep, urine legionella tests are ordered: Negative -- Pro-calcitonin as ordered -- Levaquin IV ABX 's at 750 mg IV daily, clindamycin IV was added 01/08 for anaerobic coverage -- Breathing treatments -- long-term staff complained about chest pain, though patient does not: This may be due to pneumonia. Assessment #2 . Severe protein calorie malnutrition, failure to thrive -- PICC line is ordered: Patient is here to PICC line 01/08 -- Speech therapy/swallow study: They recommended a barium swallow study. This has been ordered. Speech recommends full liquid diet with honey thickened liquids. Patient has declined food 01/08 pm -- D5 half with 20 of acute potassium 100 mL/h to be stopped when TPN started -- Pharmacy TPN consult -- Need to discuss patient's home medications in tablet form the dietary. -- -- 1st TPN bag started @2100 01/08 with rate of 54ml/hr -- Nutrition is consulted "- Electrolytes are stable except magnesium consistently dropped @ 1.3 this am (1.3 <- 1.5 <- 1.8), repleted with 4G magnesium iv - Continue the same mixture as yesterday with increase in magnesium" Assessment #3 depression: -- Restarted home meds escitalopram, Mirtazipine on 01/08 Assessment #4 anxiety disorder: -- Patient takes Valium by mouth -- IV Ativan 1 mg twice a day when necessary -- Need to discuss patient's home medications in tablet form the dietary. 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 CODE STATUS: Tay to verify CODE STATUS with daughter Tarsha Moreno [phone] Disposition: Patient will be going to life care once his goal TPN rate is established, after his pneumonia has improved. Per Dr. Hernandez, wants patient to stay here for the entire duration of his TPN which could be 3-4 weeks , in the hospital. She would like to contest the discharge when we feel he is ready for the discharge. Exam Vital Signs (Last) Date Time Temp Pulse Resp B/P Pulse Ox O2 Delivery O2 Flow Rate FiO2 01/10/17 09:49 36.8 69 16 127/74 97 Room Air 01/07/17 12:13 2 Test 01/07/17 11:30 01/07/17 14:40 01/07/17 23:11 01/08/17 05:13 Prothrombin Time 12.9sec (8.1-12.5) Prothromb Time International Ratio 1.20ratio D-Dimer 2.82mg/L FEU (<0.50) Troponin T < 0.010ug/L (0.0-0.011) Procalcitonin 0.06ng/mL (0.00-0.08) Hold Coleman Top Tube Received (Received) Total Bilirubin 0.4mg/dL (0.0-1.2) Aspartate Amino Transf (AST/SGOT) 12U/L (0-50) Alanine Aminotransferase (ALT/SGPT) 6U/L (0-44) Alkaline Phosphatase 51U/L (25-160) Total Protein 5.9g/dL (6.4-8.4) Albumin 3.4g/dL (3.4-5.0) Urine Color Yellow (YELLOW) Urine Appearance Clear (CLEAR,HAZY) Urine pH 6.0 (5.0-8.0) Urine Specific [place] 1.010 (1.003-1.035) Urine Protein Tracemg/dL (NEG,TRACE) Urine Glucose (UA) 100mg/dL (NEGATIVE) Urine Ketones Negativemg/dL (NEGATIVE) Urine Occult Blood Negative (NEGATIVE) Urine Nitrite Negative (NEGATIVE) Urine Bilirubin Negative (NEGATIVE) Urine Urobilinogen Normalmg/dL (NORMAL) Urine Leukocyte Esterase Negative (NEGATIVE) Urine RBC 0-2/hpf (0-2) Urine WBC 0-5/hpf (0-5) Urine Epithelial Cells Few/hpf (NONE-MOD) Urine Crystals None seen (NONE SEEN) Urine Bacteria None/hpf (NONE-FEW) Urine Hyaline Casts Rare/lpf (NONE) Urine Granular Casts None seen (NONE SEEN) Urine Waxy Casts None seen (NONE SEEN) Urine Red Blood Cell Casts None seen (NONE SEEN) Urine White Blood Cell Casts None seen (NONE SEEN) Urine Mucus None seen (None Seen) Urine Trichomonas None seen (NONE SEEN) Urine Yeast None (NONE SEEN) Urine Culture Reflexed Not indicated Urine Legionella pneumophilia Ag Negative (Negative) Neutrophils (%) (Auto) 74.0% (40-74) Lymphocytes (%) (Auto) 10.1% (14-46) Monocytes (%) (Auto) 12.4% (4-12) Eosinophils (%) (Auto) 2.7% (0-5) Basophils (%) (Auto) 0.4% (0-3) Test 01/09/17 05:10 01/10/17 05:38 White Blood Count 2.4th/mm3 (3.8-10.1) Red Blood Count 2.76mil/mm3 (4.40-5.80) Hemoglobin 8.7g/dL (13.8-17.2) Hematocrit 25.6% (41.0-50.0) Mean Corpuscular Volume 92.8fL (81-100) Mean Corpuscular Hemoglobin 31.5pg (27.0-35.0) Mean Corpuscular Hemoglobin Concent 34.0% (32.0-37.0) Red Cell Distribution Width 14.5% (12.3-15.4) Platelet Count 228bil/L (150-400) Reticulocyte Count,Calculated 0.8% (0.6-2.6) Iron Level 77ug/dL (35-150) Total Iron Binding Capacity 154ug/dL (250-450) Percent Iron Saturation 50%sat (15-50) Unsaturated Iron Binding 76.9ug/dL Ferritin 291ng/mL (30-400) Vitamin B12 Level >1999pg/mL (211-946) Folate 13.5ng/mL (>3.0) Sodium Level 137mEq/L (134-144) Potassium Level 4.2mEq/L (3.5-5.2) Chloride Level 99mEq/L (97-108) Carbon Dioxide Level 25mmol/L (18-29) Blood Urea Nitrogen 10mg/dL (8-27) Creatinine 0.84mg/dL (0.76-1.27) Estimat Glomerular Filtration Rate 98mL/min (>59) Glucose Level 90mg/dL (60-99) Calcium Level 8.8mg/dL (8.5-10.1) Phosphorus Level 5.4mg/dL (2.5-4.9) Magnesium Level 1.7mg/dL (1.6-2.6) Discharge Medications Discharge Medications ([Med Plus 2.0]) 90 ML PO TID (Reported) Ascorbic Acid (Vitamin C) 1,000 Mg Tab.chew 1,000 MG PO DAILY (Reported) Aspirin (Aspirin) 325 Mg Tablet 325 MG PO DAILY (Reported) Diazepam (Diazepam) 5 Mg Tablet 10 MG PO HS (Reported) Escitalopram Oxalate (Escitalopram Oxalate) 5 Mg Tablet 5 MG PO DAILY (Reported ) Fentanyl 50 mcg/hr Patch (Fentanyl 50 mcg/hr Patch) 50 mcg/hr Patch.td72 1 PATCH TRANSDERM Q3D (Reported) Fluconazole (Diflucan) 100 Mg Tab 100 MG PO DAILY Prescribed by: KYLEIGH FINCH DO Gabapentin (Neurontin) 300 Mg Capsule 600 MG PO HS Prescribed by: VASILE NICHOLE MD Hydromorphone (Dilaudid) 2 Mg Tablet 8 MG PO Q4H Prescribed by: VASILE NICHOLE MD Lactose-Reduced Food (Ensure Original) 237 Ml Liquid 237 ML PO 5XD (Reported) Mineral Oil/Pet Hy-Phl (Aquaphor) 1 Applic/Gm Oint 1 APPLIC TOP BID (Reported) Mirtazapine (Mirtazapine) 15 Mg Tablet 30 MG PO HS Prescribed by: VASILE NICHOLE MD Multivits-Min/FA/K/Lycopene (One-A-Day Men's 50+ Tablet) 1 Each Tablet 1 TABLET PO DAILY (Reported) Pantoprazole DR (Pantoprazole DR) 40 Mg Tablet.dr 40 MG PO BIDAC Prescribed by: VASILE NICHOLE MD Polyethylene Glycol 3350 (Polyethylene Glycol 3350) 17 Gm Powd.pack 17 GM PO DAILY (Reported) Prednisolone Acetate (Prednisolone Acetate) 5 Ml Drops.susp 1 DROP BOTH_EYES QID (Reported) Ranitidine (Ranitidine) 150 Mg Capsule 150 MG PO BID (Reported) Sennosides (Senna) 8.6 Mg Tablet 17.2 MG PO BID Prescribed by: VASILE NICHOLE MD Sucralfate (Sucralfate) 1 Gm Tablet 1 GM PO QID (Reported) Zinc Amino Acid Chelate (Zinc) 50 Mg Tablet 50 MG PO DAILY (Reported) As needed Acetaminophen (Acetaminophen) 325 Mg Capsule 650 MG PO Q4H PRN PRN For Pain ( Reported) Hydromorphone (Dilaudid) 2 Mg Tablet 8 MG PO Q3 PRN PRN For Pain Prescribed by: KYLEIGH FINCH DO Ondansetron ODT (Zofran ODT) 8 Mg Tablet 8 MG SL Q8H PRN PRN For Nausea ( Reported) Oxymetazoline HCl (Nasal Panaca Sinus) 30 Ml [place] 1-2 SPRAYS NS QID PRN PRN For Congestion (Reported) Prochlorperazine Maleate (Compazine) 10 Mg Tablet 10 MG PO Q4H PRN PRN For Nausea (Reported) Kyleigh Finch DO January 10, 2017 12:14
[2017-01-10] MEDS: HYDROmorphone PCA 0.2 mg/mL 30 mL Inj IV PRN (13:27)
--- NOTE | 2017-01-10 14:14 | NUR ---
Social Work: Continued Discharge Planning D: Pt is on day 3 of hospitalization. See CINDY initial assessment. SW contacted daughter Tarsha to discuss discharge planning. Daughter refused returning to SNF. Daughter was agreeable to considering HH RN PT and [facility] for TPN. SW faxed clinicals to [facility] and gave access for referral. SW also made referral to [facility] for RN PT and gave access. SW confirmed with RN that TPN was continuous and would need to be changed 1x every 24 hours. Daughter confirmed that pt's was home 12 hours a day and would be willing to learn TPN and change if the frequency was not more often than 1x every 12 hours. SW also called [facility] to confirm that [facility] covers 100% of cost for [facility]. SW will follow up for [facility] authorization. SW confirmed to follow up with daughter 01/11 regarding discharge plan. A: Pt who would benefit from SNF but is refusing. Pt who is willing to go home home with [facility] and [facility] for TPN. P: SW to follow up with daughter to confirm TPN frequency is 1x every 24 hours and confirm that [facility] covers [facility]. Pt to discharge home with via POV if family is agreeable to HH and [facility] discharge plan. MARK ANTHONY Vargas
--- NOTE | 2017-01-10 14:30 | PCM.PNMED ---
Subjective Date of Service January 10, 2017 Subjective Patient is seen and examined. He denies nausea vomiting. He is tolerating TPN diet okay. Currently his few of his medications are being crushed and given to him with thickened liquids. He has no fevers or chills. Cough is about the same but thinks is because of his irritation in the throat than anything else. No other concerns Exam Vital Signs Vital Sign - Last Date Time Temp Pulse Resp B/P Pulse Ox O2 Delivery O2 Flow Rate FiO2 01/10/17 09:49 36.8 69 16 127/74 97 Room Air 01/07/17 12:13 2 Intake and Output 01/09/17 01/09/17 01/10/17 Cumulative From/Thru 15:00 23:00 07:00 01/07/17 11:07 - 01/10/17 05:59 Intake Total 1426 ml 753 ml 6251 ml Output Total 1410 ml Balance 1426 ml 753 ml 4841 ml Intake Oral 0 ml 0 ml IV Total 731 ml 144 ml 4518 ml TPN/PPN 695 ml 609 ml 1733 ml Output Urine Total 1410 ml # Voids 1 1 # Bowel Movements 0 1 Exam Gen.: No acute distress HEENT: Normocephalic, atraumatic Heart: Regular rate and rhythm no S3-S4 sounds Lungs: Diminished sounds on the right lower lobe, negative for wheezing Abdomen: Flat and nondistended nontender Extremities: Negative for edema Psych negative for agitation Neuro: No focal deficits IVs and Medications IV Fluids TPN Medications Reviewed: Medications were reviewed in detail Lab and Diagnostics Laboratory Tests Test 01/10/17 05:38 Sodium Level 137mEq/L (134-144) Potassium Level 4.2mEq/L (3.5-5.2) Chloride Level 99mEq/L (97-108) Carbon Dioxide Level 25mmol/L (18-29) Blood Urea Nitrogen 10mg/dL (8-27) Creatinine 0.84mg/dL (0.76-1.27) Estimat Glomerular Filtration Rate 98mL/min (>59) Glucose Level 90mg/dL (60-99) Calcium Level 8.8mg/dL (8.5-10.1) Phosphorus Level 5.4mg/dL (2.5-4.9) Magnesium Level 1.7mg/dL (1.6-2.6) Microbiology 5/3/17 Blood Culture - Preliminary, Resulted No growth at 2 days; culture examined... 01/07/17 Streptococcus pneumoniae Ag Screen - Final, Complete Result Diagram: 01/09/17 0510 01/10/17 0538 X-Rays, CTs and MRIs PROCEDURE: CT ANGIO CHEST PULMONARY EMBOLISM ([id number]) 1. No pulmonary emboli. 2. Patchy airspace disease within the bilateral lower lobes and right middle lobe is suggestive of pneumonia. 3. Extensive centrilobular emphysema. 4. Small hiatal hernia. Mild prominence of the distal esophageal wall may be related to esophagitis and clinical correlation is recommended. Dictated by: Kendrick Lockhart M.D. on 01/07/2017 at 12:34 Approved by: Kendrick Lockhart M.D. on 01/07/2017 at 12:42 Additional Diagnostics NUTRITION ASSESSMENT: ASSESS: 61 YO M admitted with pneumonia, failure to thrive, neck pain and inability to eat. Pt has refused PEG tube placement in the past but is status post PICC line placed with initiation of TPN 01/08. Per notes, pt has lost 75- 80 lb over the past year, mainly due to throat pain, mucositis, decreased appetite. Pt was able to gain some weight back and then lost the weight again while undergoing chemo and radiation, which he has now completed. He is refusing all PO except for applesauce when oral medication is required. Barium swallow ordered and is pending. PMHX: Right esophageal/oropharyngeal CA, HTN, depression, severe malnutrition. LABS: Reviewed. Phos 5.4. MEDS: Reviewed. Remeron, fentanyl. GI: BM x 1 (01/08). WT: 64.1 kg, BMI 19.0 kg/m2. Admit weight: 64.1 kg. UBW 114.5kg ( 230lbs) DIET: Full liquid diet, Honey thick, Chocolate ensure all trays. Pt refusing PO intake. TPN: 130 g dextrose, 60 g Amino acids and 30 g lipids to provide 982 kcals and 60 g protein per day. EST. NEEDS: ca/wt gain Kcals: 7731-0590 kcal/day (35-40 kcal/kg BW) Pro: 75-115 g/day (1.2-1.8 g/kg BW) Fluids: 5706-0605 mL (1 mL/kcal) NUTRITION DIAGNOSIS: 1) Severe protein/kcal malnutrition related to oropharyngeal CA as evidence by decreased PO intake due to throat pain, severe weight loss and visible muscle /fat loss - PERSISTS. 2) Chewing swallowing difficulties related to mucositis, as evidenced by pt. refusal of PO intake, request by ST for barium swallow. NUTRITION INTERVENTION: 1) Diet per ST recommendations. 2) Recommend continue same TPN over weekend, pending resolution of refeeding risk. Recommend slowly advancing TPN over the next 7-10 day while pay close attention to labs (Mg, Phos, K+, Glu, Etc.) to goal TPN of 350 g dextrose, 120 g Amino Acids and 60 g lipids to provide 2270 kcals and 120 g protein per day. MONITOR / EVAL: TPN tolerance/advancement, PO intake, weights, labs, nutrition status, POC. Continue to monitor per high nutrition risk guidelines. Assessment & Plan This is a 60-year-old white male with history of oropharyngeal cancer who has just recently finished chemoradiation, is having trouble driving because of poor nutrition status. He is in need of a PICC line for nutrition. He is found to have pneumonia and a CT PE protocol in the ER Assessment #1 H health care associated pneumonia, POA -- Patient was recently sent to the rest of her just 2 weeks, not consistent with community-acquired -- Urine strep, urine legionella tests are ordered: Negative -- Pro-calcitonin as ordered -- Levaquin IV ABX 's at 750 mg IV daily, clindamycin IV was added 5/4 for anaerobic coverage -- Breathing treatments -- prison staff complained about chest pain, though patient does not: This may be due to pneumonia. -- Plan to continue same antibiotics at discharge Assessment #2 . Severe protein calorie malnutrition, failure to thrive -- PICC line is ordered: Patient is here to PICC line 5/4 -- Speech therapy/swallow study: They recommended a barium swallow study. This has been ordered. Speech recommends full liquid diet with honey thickened liquids. Patient has declined food 5/4 pm -- D5 half with 20 of acute potassium 100 mL/h to be stopped when TPN started -- Pharmacy TPN consult -- Need to discuss patient's home medications in tablet form the dietary. -- -- 1st TPN bag started @2100 01/08 with rate of 54ml/hr -- Nutrition is consulted "- Electrolytes are stable except magnesium consistently dropped @ 1.3 this am (1.3 <- 1.5 <- 1.8), repleted with 4G magnesium iv - Continue the same mixture as yesterday with increase in magnesium" Assessment #3 depression: -- Restarted home meds escitalopram, Mirtazipine on 01/08: We will discuss medications with speech therapy Assessment #4 anxiety disorder: -- Patient takes Valium by mouth -- IV Ativan 1 mg twice a day when necessary -- Need to discuss patient's home medications in tablet form with the dietary. 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 Dementia, chronic -- Continue to monitor Hypomagnesemia: Patient has been hypomagnesemic since admission -- We will continue to monitor and replace -- He was given 4 mg IV 55 a.m. CODE STATUS: Tay to verify CODE STATUS with daughter Tarsha Moreno Disposition: Patient will be going to life care once his goal TPN rate is established, after his pneumonia has improved. Per Dr. Hernandez, Daughter. wants patient to stay here for the entire duration of his TPN which could be 3-4 weeks , in the hospital. She would like to contest the discharge when we feel he is ready for the discharge. On 01/10, daughter stated that she would like to take her father home possibly on 01/11. GI Prophylaxis: Proton Pump Inhibitor VTE Prophylaxis: Sub-Q Heparin (Unfractionated) Resuscitation Status: CPR: Attempt Resuscitation Time spent 20 minutes Kyleigh Bray DO January 10, 2017 14:29
[2017-01-10] MEDS: levoFLOXacin Inj 750 MG in IV Premix 1 EACH IV SCH (15:29)
[2017-01-10] MEDS ORDERED: HYDROmorphone PCA 0.2 mg/mL 30 mL Inj IV PRN (17:05)
--- NOTE | 2017-01-10 17:18 | PCM.PALLBR ---
Palliative Brief Note Date of Service January 10, 2017 . Reviewed patient's status earlier today, then again in PM with Dr. Bray Improved pain control. Patient and family considering DC options. 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 Considered PO methadone, but QTC modestly elevated already and would not be able to monitor if plan is for DC tomorrow. Patient reportedly excessively sleepy with topical fentanyl 75 mcg APRN. Will restart oral hydromorphone, 8 mg PO Q3 hr prn, and continue fentanyl patch , 50 mcg Q48 hrs. Stop basal mode of COTTON GIN YARD SUPERVISOR now but leave available for prn use. Monitor usage and reassess/adjust meds in AM. Discussed with Dr. Bray in detail. Nasim Hernandez MD January 10, 2017 17:18
--- NOTE | 2017-01-10 19:24 | NUR ---
DOORMAKER/Behavior Pt no longer on continuous DOORMAKER Dilaudid infusion, standard DOORMAKER settings in place at 0.5mg every 15min with lockout 3mg. Pt educated on the change of medications and that plan to start weaning to PO Dilaudid. Pt stated understanding, forgetful - believe that he will need to reminded of DOORMAKER button. NOC RN aware of PRN PO Dilaudid Pt pleasant and calm throughout shift, sleeping off and on. Stating the best sleep he's had in days. A&O, forgetful, seems to be able to reorient, SOFIA in place, call light in place. Care continues.
[2017-01-10] MEDS: Total Parenteral Nutrition 1 BAG IV SCH (21:30)
[2017-01-11] MEDS: Clindamycin Inj 600 MG in IV Premix 1 EACH IV SCH ×2 (02:00→09:38)
[2017-01-11] MEDS: Heparin 5,000 Unit/mL Inj SUBQ SCH ×3 (02:01→15:51)
[2017-01-11 04:00] VITALS: RESP 18; O2SAT 97
--- NOTE | 2017-01-11 04:04 | NUR ---
GI; tpn infusing at 167/hr. per current tpn order. Plan is to drop rate @ 6am and then d/c tpn at 0700. Addendum: 01/11/17 at 0449 by KLEVER MAURER RN CORRECTION; new bag hanging over 12hrs. Started after old tpn bag done. Plan: Drop rate @ 0800 to 50ml/hr and complete infusion.
[2017-01-11 05:00] VITALS: BP 133/78; PULSE 70; RESP 16; O2SAT 99
[2017-01-11] MEDS ORDERED: HYDR2TAB27 PO (09:07)
[2017-01-11] MEDS ORDERED: DIF100A PO (09:07)
--- NOTE | 2017-01-11 09:10 | PCM.PNMED ---
Subjective Date of Service January 11, 2017 Subjective Patient is seen and examined. His wearing several layers of clothes. States he does not go outside because he does not like people. He is feeling fine and is not bloated, and has no chest pain, denies bitterness in his mouth, denies abdominal distention or discomfort. Denies nausea or vomiting. Cough and breathing are much better. No other concerns Exam Vital Signs Vital Sign - Last Date Time Temp Pulse Resp B/P Pulse Ox O2 Delivery O2 Flow Rate FiO2 01/11/17 05:00 36.9 70 16 133/78 99 Room Air 01/07/17 12:13 2 Intake and Output 01/10/17 01/10/17 01/11/17 Cumulative From/Thru 15:00 23:00 07:00 01/07/17 11:07 - 01/11/17 04:55 Intake Total 1137 ml 1760 ml 9148 ml Output Total 100 ml 1510 ml Balance 1037 ml 1760 ml 7638 ml Intake Oral 100 ml 100 ml IV Total 348 ml 330 ml 5196 ml TPN/PPN 689 ml 1430 ml 3852 ml Output Urine Total 100 ml 1510 ml # Voids 1 # Bowel Movements 1 Exam Physical exam: No acute distress wearing several layers of clothes and a Hat HEENT: Normocephalic, atraumatic thick secretions in mouth and appearance of candidiasis Heart: Regular rate and rhythm, distant sounds due to barrel chest Lungs: Clear to auscultation bilaterally no crackles or wheezes appreciated Abdomen flat, non-tender, nondistended bowel sounds are normal Extremities: Negative for edema Skin : warm and dry Neuro no focal deficits Psych negative for agitation and anxiety IVs and Medications IV Fluids TPN ran 9pm-9 am 167 cc/hr, drop to 50 cc/hr for the last one hr Medications Reviewed: Medications were reviewed in detail Lab and Diagnostics Result Diagram: 01/09/17 0510 01/11/17 0500 X-Rays, CTs and MRIs PROCEDURE: CT ANGIO CHEST PULMONARY EMBOLISM ([id number]) 1. No pulmonary emboli. 2. Patchy airspace disease within the bilateral lower lobes and right middle lobe is suggestive of pneumonia. 3. Extensive centrilobular emphysema. 4. Small hiatal hernia. Mild prominence of the distal esophageal wall may be related to esophagitis and clinical correlation is recommended. Dictated by: Kendrick Lockhart M.D. on 01/07/2017 at 12:34 Approved by: Kendrick Lockhart M.D. on 01/07/2017 at 12:42 Additional Diagnostics NUTRITION ASSESSMENT: ASSESS: 61 YO M admitted with pneumonia, failure to thrive, neck pain and inability to eat. Pt has refused PEG tube placement in the past but is status post PICC line placed with initiation of TPN 01/08. Per notes, pt has lost 75- 80 lb over the past year, mainly due to throat pain, mucositis, decreased appetite. Pt was able to gain some weight back and then lost the weight again while undergoing chemo and radiation, which he has now completed. He is refusing all PO except for applesauce when oral medication is required. Barium swallow ordered and is pending. PMHX: Right esophageal/oropharyngeal CA, HTN, depression, severe malnutrition. LABS: Reviewed. Phos 5.4. MEDS: Reviewed. Remeron, fentanyl. GI: BM x 1 (01/08). WT: 64.1 kg, BMI 19.0 kg/m2. Admit weight: 64.1 kg. UBW 114.5kg ( 230lbs) DIET: Full liquid diet, Honey thick, Chocolate ensure all trays. Pt refusing PO intake. TPN: 130 g dextrose, 60 g Amino acids and 30 g lipids to provide 982 kcals and 60 g protein per day. EST. NEEDS: ca/wt gain Kcals: 3428-8086 kcal/day (35-40 kcal/kg BW) Pro: 75-115 g/day (1.2-1.8 g/kg BW) Fluids: 3801-0278 mL (1 mL/kcal) NUTRITION DIAGNOSIS: 1) Severe protein/kcal malnutrition related to oropharyngeal CA as evidence by decreased PO intake due to throat pain, severe weight loss and visible muscle /fat loss - PERSISTS. 2) Chewing swallowing difficulties related to mucositis, as evidenced by pt. refusal of PO intake, request by ST for barium swallow. NUTRITION INTERVENTION: 1) Diet per ST recommendations. 2) Recommend continue same TPN over weekend, pending resolution of refeeding risk. Recommend slowly advancing TPN over the next 7-10 day while pay close attention to labs (Mg, Phos, K+, Glu, Etc.) to goal TPN of 350 g dextrose, 120 g Amino Acids and 60 g lipids to provide 2270 kcals and 120 g protein per day. MONITOR / EVAL: TPN tolerance/advancement, PO intake, weights, labs, nutrition status, POC. Continue to monitor per high nutrition risk guidelines. Assessment & Plan This is a 60-year-old white male with history of oropharyngeal cancer who has just recently finished chemoradiation, is having trouble driving because of poor nutrition status. He is in need of a PICC line for nutrition. He is found to have pneumonia and a CT PE protocol in the ER Assessment #1 H health care associated pneumonia, POA -- Patient was recently sent to the rest of her just 2 weeks, not consistent with community-acquired -- Urine strep, urine legionella tests are ordered: Negative -- Pro-calcitonin as ordered -- Levaquin IV ABX 's at 750 mg IV daily, clindamycin IV was added 01/08 for anaerobic coverage -- Breathing treatments -- longterm staff complained about chest pain, though patient does not: This may be due to pneumonia. -- Plan to continue same antibiotics at discharge: he received 5/4, 5/5, 5/6, 5/ 7 levaquin and 5/4, 5/5, 5/6, 5/7 clindamycin. Total of 7 days of therapy.of levaquin and 5 days of clinda. He has been fairly symptom free. -- Started him on probiotcs to avoid c diff Assessment #2 . Severe protein calorie malnutrition, failure to thrive -- PICC line is ordered: Patient is here to PICC line 01/08 -- Speech therapy/swallow study: They recommended a barium swallow study. This has been ordered. Speech recommends full liquid diet with honey thickened liquids. Patient has declined food 5/4 pm -- D5 half with 20 of acute potassium 100 mL/h to be stopped when TPN started -- Pharmacy TPN consult -- Need to discuss patient's home medications in tablet form the dietary. -- -- 1st TPN bag started @2100 5/4 with rate of 54ml/hr -- Nutrition is consulted "- Electrolytes are stable except magnesium consistently dropped @ 1.3 this am (1.3 <- 1.5 <- 1.8), repleted with 4G magnesium iv - Continue the same mixture as yesterday with increase in magnesium" -- Phos values are being carefully titrated as his derum levels are somewhat elevated. He will need a f/u lab script for CBC, CMP, mag, phos at d/c Assessment #3 depression: -- Restarted home meds escitalopram, Mirtazipine on 01/08: We will discuss medications with speech therapy Assessment #4 anxiety disorder: -- Patient takes Valium by mouth -- IV Ativan 1 mg twice a day when necessary -- Need to discuss patient's home medications in tablet form with the dietary. Chronic pain due to chronic low back pain and also esophageal/oropharyngeal cancer -- Palliative care is managing the patient's pain pump -- Palliative care notes: "Will therefore increase his [employer] TRAV[employer] COUNSELOR prn dose to 0.5 mg Q 15 min while continuing basal rate at 0.4 mg/hr." + fentanyl patch 50 mcg Q48H -- We will convert this to PO at discharge. Dementia, chronic -- Continue to monitor Hypomagnesemia: Patient has been hypomagnesemic since admission -- We will continue to monitor and replace -- He was given 4 mg IV 5/5 a.m. CODE STATUS: Tay to verify CODE STATUS with daughter Tarsha Moreno Disposition: Patient will be going to life care once his goal TPN rate is established, after his pneumonia has improved. Per Dr. Hernandez, Daughter. wants patient to stay here for the entire duration of his TPN which could be 3-4 weeks , in the hospital. She would like to contest the discharge when we feel he is ready for the discharge. On 01/10, daughter stated that she would like to take her father home possibly on 01/11. Pain Evaluation: Adequate Pain Control GI Prophylaxis: Proton Pump Inhibitor VTE Prophylaxis: Sub-Q Heparin (Unfractionated) Resuscitation Status: CPR: Attempt Resuscitation Time spent 30 min Kyleigh Bray DO January 11, 2017 09:10
[2017-01-11] MEDS: Pantoprazole 4 mg/mL 10 mL Inj IVPUSH SCH (09:37)
[2017-01-11 10:05] VITALS: BP 124/76; PULSE 72; RESP 18; O2SAT 98
--- NOTE | 2017-01-11 10:44 | NUR ---
TPN Pt continuing to tolerate TPN rate at 167ml/hr via PICC. At 0900, rate decreased to 50ml/hr in anticipation of discharge to home. MD made aware, continue to monitor. Addendum: 01/11/17 at 1530 by MAUREEN IRWIN RN At ~1300, pt TPN IV beeping complete. ~200cc TPN remain in bag. Pt no longer discharging. Call to compounding pharmacy technician to check and make sure TPN orders are present for tonight. Spoke with Pharmacist re: what to do when TPN is completed as new bag will not be hung until regularly scheduled time around 2100. Stated that when new bag arrives to hang it and that no other fluids need to be infusing when TPN completed. Care continues.
[2017-01-11 14:37] VITALS: BP 149/68; PULSE 77; RESP 18; O2SAT 100
--- NOTE | 2017-01-11 14:57 | NUR ---
Social Work: Update Note D: See last SW note. Pt is on day 4 of hospitalization. Pt was to discharge today but pt was not medically stable for discharge and discharge order cancelled. CINDY spoke with daughter regarding discharge plan. Daughter is no longer agreeable to pt discharging home with TPN and [facility] RN PT. Pt was originally going to go home with but because of TPN, pt is going home with his 82 y/o mother who is not able to change TPN bag or learn care education from [facility]. Daughter said pt does not have the financial means to pay for private caregiver to assist with TPN and no family members are available to help with TPN. SW encouraged daughter to consider a SNF again and daughter said a SNF is not and will not be an option. Daughter then requested CINDY to see if pt could transfer to [facility] in [place] to a swing bed. SW called [facility] and left message. SW will follow-up with daughter regarding swing bed once [facility] confirms availability. CINDY updated daughter about wait from [facility] and told her that pt will not discharge today. CINDY confirmed to follow-up with daughter tomorrow. Pt likely to discharge tomorrow. [facility] accepted and authorized pt. [facility] has accepted pt for RN PT. Daughter no longer wants to stick with original discharge plan at this point in time so these services are available if daughter changes decision in the future. A: Pt who would benefit from SNF or HH/[facility]. P: Daughter and pt are not agreeable to SNF or HH/[facility] discharge plan. Daughter requested swing bed at [facility]. SW to follow-up with daughter after confirming availability at [facility]. Pt likely to discharge tomorrow. If bed is not available at [facility] and pt is discharged, daughter stated "she will appeal discharge because pt is not able to go home on TPN with current caregiving." MARK ANTHONY Vargas Addendum: 01/12/17 at 1635 by ERNESTO MARADIAGA SS CINDY confirmed that [facility] was not able to set up 12 hour TPN after reviewing labs. Inf. Izabella. stated that labs were too low to do 12 hour TPN and they could only do 24 hour TPN. CINDY communicated this with . and SAUL RAMIREZ decided that pt was not yet ready for discharge. MARK ANTHONY Vargas
--- NOTE | 2017-01-11 18:35 | NUR ---
MACHINE PRESSER/Mentation Pt MACHINE PRESSER dc'd at 1430 per MD orders. Spoke with pt re: current plan to switch to PO medications and the idea behind switching. At that time, pt agreeable. MACHINE PRESSER removed and PO Dilaudid given. Pt continues to complain of pain 8-9/10, constant throat pain. Pt does appear to be more comfortable and though swallowing is painful, pt does not grimace as much or complain of burning with swallowing as he was towards beginning of the shift. Pt remains in and out of confusion. A&O self, time and is aware that he is in the hospital; stating "Im glad I didnt go home today" as he was having increased pain in afternoon, but then also stating that a kitten had snuck in to his room and was seeing things on his floor. Pt is reorientable. Cherry in place, call light in reach. Pt pleasant and cooperative with care. Care continues.
[2017-01-11 20:30] VITALS: BP 116/64; PULSE 82; RESP 18; O2SAT 99
[2017-01-11] MEDS: Total Parenteral Nutrition 1 BAG IV SCH (21:23)
[2017-01-12] MEDS: Total Parenteral Nutrition 1 BAG IV SCH
[2017-01-12] MEDS: Heparin 5,000 Unit/mL Inj SUBQ SCH ×3 (00:30→16:46)
--- NOTE | 2017-01-12 02:02 | NUR ---
PSYCH/GI; tpn started at 2100 at 93/hr for one hour, followed by rate of 186/hr for 10hrs. Plan: then decrease rate to 93/hr until complete. Confusion noted off and on. 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 Reorients easily. Goes back to sleep. Edwards alarm on for pt safety.
[2017-01-12 05:51] LABS: Magnesium 1.5 mg/dL (1.6-2.6); Phosphorus 4.4 mg/dL (2.5-4.9)
[2017-01-12 06:15] VITALS: BP 130/78; PULSE 62; RESP 18; O2SAT 98
[2017-01-12] MEDS: levoFLOXacin 750 mg Tablet PO SCH ×2 (07:30→08:50)
[2017-01-12] MEDS: Pantoprazole 4 mg/mL 10 mL Inj IVPUSH SCH (08:49)
--- NOTE | 2017-01-12 09:04 | NUR ---
Medications Patient refused medications clindamycin, fluconazole, levofloxacin after medications were crushed. Patient refused aspirin whole. Nurse educated on importance of antibiotics. Patient still refused. Call light and tray table within reach. Will continue to monitor patient hourly.
--- NOTE | 2017-01-12 09:10 | NUR ---
Social Work spoke with CINDY Araujo at [facility] who confirms that they do take TPN and would like to review the clinicals. CINDY faxed referral to [phone]. CINDY will continue to follow. MARK ANTHONY Barriga
[2017-01-12] MEDS: Ondansetron 2 mg/mL 2 mL Inj IVPUSH PRN (09:21)
[2017-01-12] MEDS ORDERED: Magnesium Sulf 2 Gm/50mL Water 2 GM in IV Premix 1 EACH IV ONE ×2 (09:25→15:05)
--- NOTE | 2017-01-12 09:34 | NUR ---
Nausea Patient reported nausea. 8mg of ondansetron given. Patient reported 9/[address] Almaguer to reorder [employer] DERRICK WORKER. Patient repositions self for comfort. Call light and tray table within reach. Will continue to monitor patient hourly.
[2017-01-12] MEDS ORDERED: HYDROmorphone 0.5 mg/0.5 mL iSecure Syringe IVPUSH PRN (09:35)
[2017-01-12] MEDS ORDERED: HYDROmorphone PCA 0.2 mg/mL 30 mL Inj IV PRN (09:35)
--- NOTE | 2017-01-12 10:29 | PCM.PALLBR ---
Palliative Care Recommendation Mr. Colten Moreno is unfortunate 61-year-old gentleman with oropharyngeal cancer, now hospitalized with intractable pain, possible healthcare associated pneumonia, progressive inanition and failure to thrive with associated malnutrition. Palliative medicine consulted to assist with symptom management. Hospital Day # 6. Summary of palliative recommendations: -Symptom management (Pain/other) - Will continue his fentanyl patch, 50 g/H, changed q 48H, as requested by his oncologist. Note, however, that patient's body habitus (extremely lean with limited subcutaneous fat) may limit the utility of topical fentanyl. - CERTIFIED PROSTHETIST hydromorphone was restarted this morning at 0.2mg Q10min to respond to his pain out control complaints. Monitor response and adjust dosing as needed. We hope to wean him off the CERTIFIED PROSTHETIST once his nausea is controlled with scheduled Zofran 4mg SL Q8H. The patient will need to be transitioned to long-acting oral/ topical narcotics for maintenance (with additional IR narcotics for breakthrough pain). Consider eventual transition to sustained-release morphine , or other for better basal pain management in the coming days. - Will continue to have oral hydromorphone 8mg PO Q3H PRN available. - Nausea management with scheduled oral Zofran 4mg SL Q8H. If his nausea persists after 1 hours, can give Zofran 4-8mg IVP PRN. Restart of his usual diazepam, citalopram, gabapentin and mirtazapine per his hospitalist. -DPOA/Advanced Directives/POLST- did not review today, given focus on pain management. However, patient is adamant that he will go through any treatment that keep him alive, for himself and his daughter. -Family/emotional support- noted to be good in the past, though some distress evident at time of admission. Family does not feel like the patient can be discharged home, but they do not want SNF either. The patient might to to [facility] for a swing bed. Discharge planning per Case management. Discussed with Dr. Dong regarding pain management and he agreed with our plans. Additional Medical Diagnoses with primary management by Hospitalist team include : Health care associated pneumonia, POA Poor nutrition status, failure to thrive Depression: Anxiety disorder: Chronic pain due to chronic low back pain and also esophageal/oropharyngeal cancer Dementia versus delirium, chronic, multifactorial Problems: End of Life Preferences Full code Goals of Care Control of symptoms and nutritional support Disposition To be determined Resuscitation Status Resuscitation Status: CPR: Attempt Resuscitation . Symptom management: Nausea, Pain Total time 45 minutes; >50% face to face with patient and/or family, providing counselling regarding plans and recommendations, and in care coordination with his/her medical teams. Attending Statement Attending present and available for this patient interaction and discussion of symptom management. I approve of progress note's plan as outlined by resident physician above. Palliative Brief Note Date of Service January 12, 2017 . Patient received 4mg of CERTIFIED PROSTHETIST Hydromorphone over 10 hours yesterday. The CERTIFIED PROSTHETIST was discontinued yesterday afternoon 01/11. Patient has been on Fentanyl patch 50mcg and oral hydromorphone 8mg PO Q3H PRN. All his oral medications are crushed with apple sauce, but patient reports nausea with oral intake including oral medications. Patient also has been refusing all antibiotics, clindamycin, fluconazole, and levofloxacin due to complaint of them making him sick. He is on TPN. This morning, patient complains of poor pain control with 9/10 oral pain and nausea. He also admits to significant chills and weakness. However, patient insists to continue medical treatment as "I would do anything for my daughter and myself." Alexei Fragoso DO January 12, 2017 10:28 Libia Almaguer MD January 12, 2017 11:13
--- NOTE | 2017-01-12 11:17 | NUR ---
curtain framerpublicist note: Met with patient in room 1023. Patient continues to be confused. Patient continues to c/o throat pain and nausea. Patient's nurse stated patient had just received Ondansetron 8mg IV. Patient does have a Fentanyl 50 mcg patch on. No other care needs identified. Will continue to follow and provided assistance as needed.
--- NOTE | 2017-01-12 12:25 | PCM.PHAPRO ---
Progress Poor nutritional status, fail to thrive TPN Management: TPN #5 -Continuation of TPN - nocturnal/12hr regimen due to chemo/radiation treatment with inability to eat/malnutrition and failure to thrive -magnesium was repleted this morning with 2gm ivpb Mag Sulfate for a level of 1.5 -macronutrients recommended by nutrition: AA 75gm, Dextrose 160gm, Lipids 40gm -potassium 4.6 -Plan: * increase Magnesium by 4 meq * add 1mg folic acid due to half-way malnutrition * decrease potassium by 10mEq to 40 mEq, potassium has been trending up over the last few days PARENTERAL NUTRITION ORDERS 5 - Standard Hang Time: 2100 Substrates Total kcal: 1244 AMINO ACIDS 75 g DEXTROSE 160 g Total Volume (mL): 2000 LIPIDS 40 g Sterile Water for Injection QS mL To Infuse Over (hrs): 12 Total Volume 2000 mL At at a rate of (mL/hr): see below Additives Sodium Chloride 80 mEq "typical" daily requirements Sodium Acetate 40 mEq Sodium 50-120mEq Potassium Chloride 40 mEq Potassium 60-120mEq Potassium Phosphate 10 mEq Phosphate 20-40mEq Calcium Gluconate 9 mEq Magnesium 8-32mEq Magnesium Sulfate 24 mEq Calcium 9-22mEq Acetate* 80-120mEq Chloride* 80-120mEq Regular Insulin units *Depending on acid-base status Famotidine 40 mg Multivitamins 1 std dose Insulin Regimen Trace Elements 1 std dose none Thiamine 100 mg Regular Low Intensity Subcut Folic Acid 1 mg Regular Medium Intensity Subcut Ascorbic Acid mg Regular High Intensity Subcut Regular Insulin Infusion Other: Special Instructions: To be infused via central line only. For delay or inturruption of TPN contact the pharmacist for alternative replacement solution. Infuse over 12 hours, from 2100 to ~0900. Start at 93ml/hr x 1 hr, then 186 mL/hr x 10 hrs, then 93 ml/hr until complete. Fernanda Campo.D January 12, 2017 12:25
--- NOTE | 2017-01-12 13:26 | NUR ---
NUTRITION FOLLOW UP: ASSESS: 61 YO M admitted with pneumonia, failure to thrive, neck pain and inability to eat. Pt has refused PEG tube placement in the past but is status post PICC line placed with initiation of TPN 01/08, electrolytes appear to be normalizing, pt continues to refuse po diet, c/o throat pain/nausea, some confusion. TPN to be increased slightly today. Per notes, pt has lost 75-80 lb over the past year, mainly due to throat pain, mucositis, decreased appetite. Pt was able to gain some weight back and then lost the weight again while undergoing chemo and radiation, which he has now completed. He is refusing all PO except for applesauce when oral medication is required. Barium swallow ordered. PMHX: Right esophageal/oropharyngeal CA, HTN, depression, severe malnutrition. LABS: Reviewed. Glu 111, Ca/Phos WNL, Mg 1.5, Alb 2.9 MEDS: Reviewed. Remeron, fentanyl. GI: BM x 1 (01/11). WT: 61.9 kg, BMI 18.5 kg/m2. Admit weight: 64.1 kg. UBW 114.5kg (230lbs) DIET: Full liquid diet, Honey thick, Chocolate ensure all trays. Pt refusing PO intake. TPN: 160g dextrose, 75g AA, 40g Lipids to provide 1244kcal,75g pro Goal:350 g dextrose, 120 g Amino Acids and 60 g lipids to provide 2270 kcals and 120 g protein per day. EST. NEEDS: ca/wt gain Kcals: 0849-7969 kcal/day (35-40 kcal/kg BW) Pro: 75-115 g/day (1.2-1.8 g/kg BW) Fluids: 2242-1812 mL (1 mL/kcal) NUTRITION DIAGNOSIS: 1) Severe protein/kcal malnutrition related to oropharyngeal CA as evidence by decreased PO intake due to throat pain, severe weight loss and visible muscle/fat loss - PERSISTS. 2) Chewing swallowing difficulties related to mucositis, as evidenced by pt. refusal of PO intake, request by ST for barium swallow. NUTRITION INTERVENTION: 1) Diet per ST recommendations. 2) Recommend slowly advancing TPN over the next 7-10 day while pay close attention to labs (Mg, Phos, K+, Glu, Etc.) to goal TPN. MONITOR / EVAL: TPN tolerance/advancement, PO intake, weights, labs, nutrition status, POC. Continue to monitor per high nutrition risk guidelines. Addendum: 01/13/17 at [address] Recommend slow increase of TPN macros today to 200 g Dextrose, 90 g amino acids and 45 g lipids to provide 1490 kcals and 90 g protein per day. TPN is currently being run over 12 hours so TPN can be cyclic at home. As pt is likely being discharged today prior to TPN being at goal rate, KARINE concerned that goal dextrose of 350 g if only ran over 12 hours period will exceed max recommended glucose infusion rate.
[2017-01-12 13:30] VITALS: BP 105/62; PULSE 69; RESP 14; O2SAT 100
--- NOTE | 2017-01-12 15:13 | PCM.PNMED ---
Subjective Date of Service January 12, 2017 Subjective dilaudid DISC PAD PLATE FILLER was discontinued overnight, but had to be restarted due to uncontrolled pain. Palliative care managing pain regimen. Exam Vital Signs Vital Sign - Last Date Time Temp Pulse Resp B/P Pulse Ox O2 Delivery O2 Flow Rate FiO2 01/12/17 13:30 36.7 69 14 105/62 100 Room Air 01/07/17 12:13 2 Intake and Output 01/11/17 01/11/17 01/12/17 Cumulative From/Thru 15:00 23:00 07:00 01/07/17 11:07 - 01/12/17 06:48 Intake Total 321 ml 945 ml 1417 ml 26528 ml Output Total 1510 ml Balance 321 ml 945 ml 1417 ml 23678 ml Intake Oral 50 ml 10 ml 360 ml 520 ml IV Total 271 ml 5467 ml TPN/PPN 935 ml 1057 ml 5844 ml Output Urine Total 1510 ml # Voids 1 2 2 6 # Bowel Movements 1 0 2 Exam Physical exam: No acute distress HEENT: Normocephalic, atraumatic thick secretions in mouth and appearance of candidiasis Heart: Regular rate and rhythm, distant sounds due to barrel chest Lungs: Clear to auscultation bilaterally no crackles or wheezes appreciated Abdomen flat, non-tender, nondistended bowel sounds are normal Extremities: Negative for edema Skin : warm and dry Neuro no focal deficits Psych negative for agitation and anxiety IVs and Medications Medications Reviewed: Medications were reviewed in detail Lab and Diagnostics Result Diagram: 01/09/17 0510 01/12/17 0420 X-Rays, CTs and MRIs PROCEDURE: CT ANGIO CHEST PULMONARY EMBOLISM ([id number]) 1. No pulmonary emboli. 2. Patchy airspace disease within the bilateral lower lobes and right middle lobe is suggestive of pneumonia. 3. Extensive centrilobular emphysema. 4. Small hiatal hernia. Mild prominence of the distal esophageal wall may be related to esophagitis and clinical correlation is recommended. Dictated by: Kendrick Lockhart M.D. on 01/07/2017 at 12:34 Approved by: Kendrick Lockhart M.D. on 01/07/2017 at 12:42 Additional Diagnostics NUTRITION ASSESSMENT: ASSESS: 61 YO M admitted with pneumonia, failure to thrive, neck pain and inability to eat. Pt has refused PEG tube placement in the past but is status post PICC line placed with initiation of TPN 01/08. Per notes, pt has lost 75- 80 lb over the past year, mainly due to throat pain, mucositis, decreased appetite. Pt was able to gain some weight back and then lost the weight again while undergoing chemo and radiation, which he has now completed. He is refusing all PO except for applesauce when oral medication is required. Barium swallow ordered and is pending. PMHX: Right esophageal/oropharyngeal CA, HTN, depression, severe malnutrition. LABS: Reviewed. Phos 5.4. MEDS: Reviewed. Remeron, fentanyl. GI: BM x 1 (01/08). WT: 64.1 kg, BMI 19.0 kg/m2. Admit weight: 64.1 kg. UBW 114.5kg ( 230lbs) DIET: Full liquid diet, Honey thick, Chocolate ensure all trays. Pt refusing PO intake. TPN: 130 g dextrose, 60 g Amino acids and 30 g lipids to provide 982 kcals and 60 g protein per day. EST. NEEDS: ca/wt gain Kcals: 6936-8561 kcal/day (35-40 kcal/kg BW) Pro: 75-115 g/day (1.2-1.8 g/kg BW) Fluids: 0112-0149 mL (1 mL/kcal) NUTRITION DIAGNOSIS: 1) Severe protein/kcal malnutrition related to oropharyngeal CA as evidence by decreased PO intake due to throat pain, severe weight loss and visible muscle /fat loss - PERSISTS. 2) Chewing swallowing difficulties related to mucositis, as evidenced by pt. refusal of PO intake, request by ST for barium swallow. NUTRITION INTERVENTION: 1) Diet per ST recommendations. 2) Recommend continue same TPN over weekend, pending resolution of refeeding risk. Recommend slowly advancing TPN over the next 7-10 day while pay close attention to labs (Mg, Phos, K+, Glu, Etc.) to goal TPN of 350 g dextrose, 120 g Amino Acids and 60 g lipids to provide 2270 kcals and 120 g protein per day. MONITOR / EVAL: TPN tolerance/advancement, PO intake, weights, labs, nutrition status, POC. Continue to monitor per high nutrition risk guidelines. Assessment & Plan This is a 60-year-old white male with history of oropharyngeal cancer who has just recently finished chemoradiation, is having trouble driving because of poor nutrition status. He is in need of a PICC line for nutrition. He is found to have pneumonia and a CT PE protocol in the ER # Intractable pain due to chronic low back pain and also esophageal/ oropharyngeal cancer -- Palliative care is managing the patient's pain pump -dilaudid DISC PAD PLATE FILLER had to be restarted today 01/12 due to uncontrolled pain # health care associated pneumonia, POA,resolved -- Patient was recently sent to the rest of her just 2 weeks, not consistent with community-acquired -- Urine strep, urine legionella tests are ordered: Negative -- Pro-calcitonin negative, -- Levaquin IV ABX 's at 750 mg IV daily, clindamycin IV was added 01/08 for anaerobic coverage. Patient asymptomatic. Afebrile. No cough. completed 5 day course.Discontinued antibiotics # . Severe protein calorie malnutrition, failure to thrive -- PICC line placed 01/08 -- Speech recommends full liquid diet with honey thickened liquids. Patient has declined food 01/08 pm -- D5 half with 20 of acute potassium 100 mL/h to be stopped when TPN started -- Pharmacy TPN consult -- Need to discuss patient's home medications in tablet form the dietary. -- -- 1st TPN bag started @2100 01/08 with rate of 54ml/hr -- Nutrition is consulted "- Electrolytes are stable except magnesium consistently dropped @ 1.3 this am (1.3 <- 1.5 <- 1.8), repleted with 4G magnesium iv - Continue the same mixture as yesterday with increase in magnesium" -- Phos values are being carefully titrated as his derum levels are somewhat elevated. He will need a f/u lab script for CBC, CMP, mag, phos at d/c # depression: -- Restarted home meds escitalopram, Mirtazipine on 01/08: We will discuss medications with speech therapy # anxiety disorder: -- Patient takes Valium by mouth -- IV Ativan 1 mg twice a day when necessary -- Need to discuss patient's home medications in tablet form with the dietary. # Dementia, chronic -- Continue to monitor Hypomagnesemia: Patient has been hypomagnesemic since admission -- We will continue to monitor and replace -- He was given 4 mg IV 01/09 a.m. CODE STATUS: Tay to verify CODE STATUS with daughter Tarsha Moreno Disposition: Patient will be going to life care once his goal TPN rate is established and pain regimen optimized by palliative team, GI Prophylaxis: Proton Pump Inhibitor VTE Prophylaxis: Sub-Q Heparin (Unfractionated) Resuscitation Status: CPR: Attempt Resuscitation Norman Dong MD January 12, 2017 15:13 ready for the discharge. On 01/10, daughter stated that she would like to take her father home possibly on 01/11. GI Prophylaxis: Proton Pump Inhibitor VTE Prophylaxis: Sub-Q Heparin (Unfractionated) Resuscitation Status: CPR: Attempt Resuscitation Norman Dong MD January 12, 2017 15:13
[2017-01-12] MEDS ORDERED: 0.9% Sodium Chloride 100 ML ONE (15:27)
--- NOTE | 2017-01-12 18:46 | CCS NOTE ---
[facility] [address] [place] [address], [facility]. [address] [place] [id number] MEDICAL ONCOLOGY OFFICE NOTE PATIENT: KRYSTIN GIBBS : 1955 MR#: [id number] DATE: 01/07/2017 JOB ID: [id number] DATE: 01/12/2017 HISTORY OF PRESENT ILLNESS: The patient was sitting upright in his bed, did not appear very lethargic or confused this evening, although he has a baseline cognitive impairment. He was asking whether he could go and visit his family members. At the same time, he is complaining about persistent pain in his throat which is not going to resolve quickly since he just finished chemoradiation last week. He is on TPN since January 08 with 12 hours shifts per day. Speech Pathology had as recommended to advance liquid diet with thickened consistency. LAB STUDIES: Show a total white count but absolute neutrophil count is still above 1000. Hemoglobin and platelet counts stable. Chemistry shows no significant abnormalities. EXAMINATION: On exam, persistent residual mucositis and possible pressure on the tongue. Abdomen is soft. No peripheral edema. PICC line in place. 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 He is being managed with TPN and pain medicine has included DIRECTOR AIRPORT pump for treatment of toxicity and failure to thrive. Faithful adherence to me seems to be somewhat improved compared to last week. His lab studies show hypoalbuminemia and a reduced white count. His absolute neutrophil count, however, is still adequate. He is being managed for a mild pneumonia and mostly for pain control and initiation of TPN. His oral cavity seemed to show some thrush on his tongue. Consider a brief course of oral fluconazole. The patient does not appear to be in severe pain when one evaluates him, and I would caution about excessive dose increases given recurrent episodes of hypersomnolence and confusion.
[2017-01-12 20:48] VITALS: BP 116/66; PULSE 62; RESP 16; O2SAT 98
[2017-01-13] MEDS: Heparin 5,000 Unit/mL Inj SUBQ SCH ×3 (00:30→16:30)
[2017-01-13] MEDS: Dextrose 5% 500 ML IV SCH ×2 (01:45→09:33)
--- NOTE | 2017-01-13 04:02 | NUR ---
Activity Patient cooperative for majority of care, tolerating TPN. One noted episode of confusion where patient stood up and began walking into [address] he was easy redirected and has remained in bed since. Bed in low position, Poesy alarm on for safety. Will continue plan of care
[2017-01-13 04:43] VITALS: BP 133/74; PULSE 64; RESP 14; O2SAT 100
[2017-01-13] MEDS: levoFLOXacin 750 mg Tablet PO SCH (07:30)
[2017-01-13 08:27] LABS: BASOPHILS % (AUTO) 1.5 % (0-3); EOSINOPHILS % (AUTO) 10.5 % (0-5); MONOCYTES % (AUTO) 16.5 % (4-12); Mean Corpuscular Hemoglobin 32.1 pg (27.0-35.0); Mean Corpuscular Volume 92.6 fL (81-100); Platelet Count 181 bil/L (150-400)
[2017-01-13 10:23] LABS: Magnesium 1.9 mg/dL (1.6-2.6); Phosphorus 4.5 mg/dL (2.5-4.9)
--- NOTE | 2017-01-13 10:25 | PCM.PALLBR ---
Palliative Care Recommendation Mr. Colten Moreno is unfortunate 61-year-old gentleman with oropharyngeal cancer, now hospitalized with intractable pain, possible healthcare associated pneumonia, progressive inanition and failure to thrive with associated malnutrition. Palliative medicine consulted to assist with symptom management. Hospital Day # 7. Summary of palliative recommendations: -Symptom management (Pain/other) - In light of the patient's encephalopathy, we will not make any changes to his pain medication today. We will continue his fentanyl patch, 50 g Q48H. Note, however, that patient's body habitus (extremely lean with limited subcutaneous fat) may limit the utility of topical fentanyl. Will continue to have oral hydromorphone 8mg PO Q3H PRN available. - AD TRAFFICKER hydromorphone was supposed to restart yesterday at 0.2mg Q10min to respond to his uncontrolled pain, but nursing did not set up the AD TRAFFICKER due to concern of altered mental status. This change in his mental state is unclear-- but it is unlikely that his altered mental status is opioid-induced as the patient has not had any pain medication other than the Fentanyl patch in the last 24 hours. We suspect that encephalopathy is secondary to metabolic process or unknown etiology. Will defer to the hospitalist team for further evaluation of the encephalopathy. - We decreased the Valium from 10mg to 5mg PO 1 tab HS as Valium is the only medication that can contribute to sedation and possibly, the encephalopathy. - Because the patient has been refusing oral meds, we will change the Zofran to 4mg IV Q6H scheduled for nausea management and stop the oral Zofran for now. -DPOA/Advanced Directives/POLST- did not review today, given focus on pain management. However, patient was adamant on 01/12 discussion with Palliative Care that he will go through any treatment that keep him alive, for himself and his daughter. -Family/emotional support- noted to be good in the past, though some distress evident at time of admission. Family does not feel like the patient can be discharged home, but they do not want SNF either. The [facility] to [place] [facility] [place]. Discharge planning per Case management. Additional Medical Diagnoses with primary management by Hospitalist team include : Health care associated pneumonia, POA Poor nutrition status, failure to thrive Depression: Anxiety disorder: Chronic pain due to chronic low back pain and also esophageal/oropharyngeal cancer Dementia versus delirium, chronic, multifactorial Problems: End of Life Preferences Full code Goals of Care Control of symptoms and nutritional support Disposition To be determined Resuscitation Status Resuscitation Status: CPR: Attempt Resuscitation Total time 35 minutes; >50% face to face with patient and/or family, providing counselling regarding plans and recommendations, and in care coordination with his/her medical teams. Attending Statement Attending present and discussed management plan with resident physician. I agree with documentation of plan proved in progress note above. Palliative Brief Note Date of Service January 13, 2017 . Per nursing, patient has been somnolent and slept throughout the day and night yesterday. He denied any pain or nausea during intermittent nursing assessment, thus the nurse did not feel comfortable starting AD TRAFFICKER pump yesterday. Patient still has the Fentanyl patch 50mcg, but has not had any other pain medications yesterday or overnight. He has been refusing all his oral medications because "they make me sick." Nursing is also concerned about patient's increasing confusion. No visit from family yesterday. This morning, patient is minimally verbal, but reports to have 10/10 throat pain and nausea. He states that nothing is working for him and thinks that he took all his morning meds. Nursing, on the other hand, reports that he refused all his oral meds this morning. Patient appears confused and asks where he is. He is only oriented to self. Alexei Fragoso DO January 13, 2017 10:25 Libia Almaguer MD January 13, 2017 10:49 Alexei Fragoso DO January 13, 2017 10:25
[2017-01-13] MEDS: Ondansetron 2 mg/mL 2 mL Inj IVPUSH SCH ×3 (10:35→22:57)
--- NOTE | 2017-01-13 11:31 | NUR ---
Social Work- Readiness for Discharge/Discharge Data: EMR reviewed. Pt is on day 6 of hospitalization for pneumonia/failure to thrive per H&P. Per MD in multi-disciplinary rounds, pt is medically ready for discharge. SW awaiting discharge orders. Pt to discharge on 24 hr TPN. Pt is confused at this time, daughter Tarsha is NOK decision maker. CINDY placed two phone calls to dtr Tarsha [phone] regarding pt's readiness for discharge and discharge plan, left two messages requesting return call. UR Specialist confirmed with [facility] that there are no swing beds available today, pt is 4th on the waitlist at this time. Pt to discharge either to [facility] or [facility] manage TPN-- or home with [facility] and family support for TPN. SW awaiting phone call from Tarsha regarding pt's discharge plan. Assessment: Pt who will need TPN at discharge. Plan: CINDY placed 2 phone calls to dtr Tarsha regarding pt's discharge plan, requesting return call. Pt to discharge either to SNF[facility] or [facility] can manage TPN-- or home with [facility] and family support for TPN. SW awaiting phone call from Tarsha regarding pt's discharge plan. MARK ANTHONY Mae
[2017-01-13] MEDS ORDERED: FLUCONAZOLE IV SCH (12:00)
--- NOTE | 2017-01-13 12:07 | PCM.DIMED ---
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 Pain seems to be controlled with pain medications adjustment. You also have failure to thrive. PICC line inserted and started on TPN. Please continue TPN at longterm facility. Follow-up plan Please follow-up with PCP in 1 week. Please follow-up with oncologist Dr. Coronel in 1-2 week. Follow-up Provider: Chivo Valadez MD Follow-up with PCP in: 1 week Norman Dong MD January 13, 2017 12:07
--- NOTE | 2017-01-13 12:13 | PCM.DC.MED ---
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 No pulmonary emboli. 2. Patchy airspace disease within the bilateral lower lobes and right middle lobe is suggestive of pneumonia. 3. Extensive centrilobular emphysema. 4. Small hiatal hernia. Mild prominence of the distal esophageal wall may be related to esophagitis and clinical correlation is recommended. Dictated by: Kendrick Lockhart M.D. on 01/07/2017 at 12:34 Other Diagnostics NUTRITION ASSESSMENT: ASSESS: 61 YO M admitted with pneumonia, failure to thrive, neck pain and inability to eat. Pt has refused PEG tube placement in the past but is status post PICC line placed with initiation of TPN 01/08. Per notes, pt has lost 75- 80 lb over the past year, mainly due to throat pain, mucositis, decreased appetite. Pt was able to gain some weight back and then lost the weight again while undergoing chemo and radiation, which he has now completed. He is refusing all PO except for applesauce when oral medication is required. Barium swallow ordered and is pending. PMHX: Right esophageal/oropharyngeal CA, HTN, depression, severe malnutrition. LABS: Reviewed. Phos 5.4. MEDS: Reviewed. Remeron, fentanyl. GI: BM x 1 (01/08). WT: 64.1 kg, BMI 19.0 kg/m2. Admit weight: 64.1 kg. UBW 114.5kg ( 230lbs) DIET: Full liquid diet, Honey thick, Chocolate ensure all trays. Pt refusing PO intake. TPN: 130 g dextrose, 60 g Amino acids and 30 g lipids to provide 982 kcals and 60 g protein per day. EST. NEEDS: ca/wt gain Kcals: 5544-5596 kcal/day (35-40 kcal/kg BW) Pro: 75-115 g/day (1.2-1.8 g/kg BW) Fluids: 4162-6730 mL (1 mL/kcal) NUTRITION DIAGNOSIS: 1) Severe protein/kcal malnutrition related to oropharyngeal CA as evidence by decreased PO intake due to throat pain, severe weight loss and visible muscle /fat loss - PERSISTS. 2) Chewing swallowing difficulties related to mucositis, as evidenced by pt. refusal of PO intake, request by ST for barium swallow. NUTRITION INTERVENTION: 1) Diet per ST recommendations. 2) Recommend continue same TPN over weekend, pending resolution of refeeding risk. Recommend slowly advancing TPN over the next 7-10 day while pay close attention to labs (Mg, Phos, K+, Glu, Etc.) to goal TPN of 350 g dextrose, 120 g Amino Acids and 60 g lipids to provide 2270 kcals and 120 g protein per day. MONITOR / EVAL: TPN tolerance/advancement, PO intake, weights, labs, nutrition status, POC. Continue to monitor per high nutrition risk guidelines. Brief History Per admission H&P: 61-year-old gentleman with locally advanced head and neck cancer undergoing chemoradiation. He has just finished his last set OF treatments. States that after today's radiation and chemotherapy, he felt severe pain in his neck. He has not been eating well. He states that he is making sure to drink ensure that having trouble eating foods and taking his pills. Patient has a history of dementia and is known to make up stories about health history and personal details. He is in need of a PICC line(patient will not accept a PEG tube, his daughter specifically talked to the ER staff about not putting in a PEG tube). His oncologist Dr. Kyrie Smiley is also aware of the situation and he recommends that patient receives her PICC line for temporary nutrition. Patient is in agreement with this plan. [facility] will not take patient back with the PICC line, he may need to be sent to life care. Patient is aware of this situation. Palliative medicine consulted to assist with symptom management/pain control. We are quite familiar with him, having followed closely during his last admission. Prior to visiting, I reviewed his updated records in the EMR in detail and spoke with his nurse. When I arrived, he is curled up in bed under the blankets. Sleeping but awakens easily. Continues to complain of pain 10/10 particularly in the throat. Stated that he had been using oral hydromorphone for pain- he cannot recall for certain but thinks that he was taking 8 mg of hydromorphone at least 4 or 5 times a day. He is not sure if he has been using a fentanyl patch previously, though his med reconciliation would suggest he was. He was discharged on hydromorphone, 8 mg every 4 hours last admission. Do note that he is somewhat forgetful and confused at times so his recall of history is questionable. He denied any shortness of breath, chest pain, abdominal pain, nausea. Hospital Course This is a 60-year-old white male with history of oropharyngeal cancer who has just recently finished chemoradiation, is having trouble driving because of poor nutrition status. He is in need of a PICC line for nutrition. He is found to have pneumonia and a CT PE protocol in the ER # Intractable pain due to chronic low back pain and also esophageal/ oropharyngeal cancer -- Palliative care is managing the patient's pain regimen. Patient initially required FORESTRY AID Dilaudid -Current pain regimen:fentanyl patch, 50 g Q48H. , oral hydromorphone 8mg PO Q3H PRN # Suspected health care associated pneumonia, POA,resolved -- Patient treated for HCAP. Unsure if he had pneumonia, only evidence is imaging -- Urine strep, urine legionella tests are ordered: Negative -- Pro-calcitonin negative, -- Levaquin IV ABX 's at 750 mg IV daily, clindamycin IV was added 01/08 for anaerobic coverage. Patient asymptomatic. Afebrile. No cough. completed 5 day course.Discontinued antibiotics on 01/12. # . Severe protein calorie malnutrition, failure to thrive -- PICC line placed 01/08 -- Speech recommends full liquid diet with honey thickened liquids. -Patient has been on TPN for the last few days. Tolerating well with no side effects. Patient will be discharged on TPN. # depression: -- Restarted home meds escitalopram, Mirtazipine # anxiety disorder: -- Patient takes Valium by mouth. Dose lowered to 5 mg per palliative team due to lethargy -- IV Ativan 1 mg twice a day when necessary. # Dementia, chronic -- Continue to monitor -Prior oncology note states patient had cognitive decline at baseline #Hypomagnesemia: Resolved CODE STATUS: full code,poa daughter Tarsha Moreno [phone] Disposition: Discharge to nursing home facility if daughter agrees, is otherwise with home infusion services for TPN .left VM to daughter Exam Vital Signs (Last) Date Time Temp Pulse Resp B/P Pulse Ox O2 Delivery O2 Flow Rate FiO2 01/13/17 04:43 36.8 64 14 133/74 100 Room Air 01/07/17 12:13 2 Exam Physical exam: No acute distress HEENT: Normocephalic, atraumatic thick secretions in mouth and appearance of candidiasis but improved Heart: Regular rate and rhythm, distant sounds due to barrel chest Lungs: Clear to auscultation bilaterally no crackles or wheezes appreciated Abdomen flat, non-tender, nondistended bowel sounds are normal Extremities: Negative for edema Skin : warm and dry Neuro no focal deficits, oriented to place and Person Psych negative for agitation and anxiety Test 01/07/17 11:30 01/07/17 23:11 01/09/17 05:10 01/11/17 05:00 Prothrombin Time 12.9sec (8.1-12.5) Prothromb Time International Ratio 1.20ratio D-Dimer 2.82mg/L FEU (<0.50) Troponin T < 0.010ug/L (0.0-0.011) Procalcitonin 0.06ng/mL (0.00-0.08) Hold Coleman Top Tube Received (Received) Urine Color Yellow (YELLOW) Urine Appearance Clear (CLEAR,HAZY) Urine pH 6.0 (5.0-8.0) Urine Specific [place] 1.010 (1.003-1.035) Urine Protein Tracemg/dL (NEG,TRACE) Urine Glucose (UA) 100mg/dL (NEGATIVE) Urine Ketones Negativemg/dL (NEGATIVE) Urine Occult Blood Negative (NEGATIVE) Urine Nitrite Negative (NEGATIVE) Urine Bilirubin Negative (NEGATIVE) Urine Urobilinogen Normalmg/dL (NORMAL) Urine Leukocyte Esterase Negative (NEGATIVE) Urine RBC 0-2/hpf (0-2) Urine WBC 0-5/hpf (0-5) Urine Epithelial Cells Few/hpf (NONE-MOD) Urine Crystals None seen (NONE SEEN) Urine Bacteria None/hpf (NONE-FEW) Urine Hyaline Casts Rare/lpf (NONE) Urine Granular Casts None seen (NONE SEEN) Urine Waxy Casts None seen (NONE SEEN) Urine Red Blood Cell Casts None seen (NONE SEEN) Urine White Blood Cell Casts None seen (NONE SEEN) Urine Mucus None seen (None Seen) Urine Trichomonas None seen (NONE SEEN) Urine Yeast None (NONE SEEN) Urine Culture Reflexed Not indicated Urine Legionella pneumophilia Ag Negative (Negative) Reticulocyte Count,Calculated 0.8% (0.6-2.6) Iron Level 77ug/dL (35-150) Total Iron Binding Capacity 154ug/dL (250-450) Percent Iron Saturation 50%sat (15-50) Unsaturated Iron Binding 76.9ug/dL Ferritin 291ng/mL (30-400) Vitamin B12 Level >1999pg/mL (211-946) Folate 13.5ng/mL (>3.0) Total Bilirubin 0.3mg/dL (0.0-1.2) Aspartate Amino Transf (AST/SGOT) 9U/L (0-50) Alanine Aminotransferase (ALT/SGPT) 5U/L (0-44) Alkaline Phosphatase 47U/L (25-160) Total Protein 5.2g/dL (6.4-8.4) Albumin 2.9g/dL (3.4-5.0) Test 01/13/17 05:20 White Blood Count 2.0th/mm3 (3.8-10.1) Red Blood Count 2.71mil/mm3 (4.40-5.80) Hemoglobin 8.7g/dL (13.8-17.2) Hematocrit 25.1% (41.0-50.0) Mean Corpuscular Volume 92.6fL (81-100) Mean Corpuscular Hemoglobin 32.1pg (27.0-35.0) Mean Corpuscular Hemoglobin Concent 34.7% (32.0-37.0) Red Cell Distribution Width 15.0% (12.3-15.4) Platelet Count 181bil/L (150-400) Neutrophils (%) (Auto) 56.0% (40-74) Lymphocytes (%) (Auto) 15.5% (14-46) Monocytes (%) (Auto) 16.5% (4-12) Eosinophils (%) (Auto) 10.5% (0-5) Basophils (%) (Auto) 1.5% (0-3) Sodium Level 136mEq/L (134-144) Potassium Level 4.4mEq/L (3.5-5.2) Chloride Level 100mEq/L (97-108) Carbon Dioxide Level 23mmol/L (18-29) Blood Urea Nitrogen 18mg/dL (8-27) Creatinine 1.04mg/dL (0.76-1.27) Estimat Glomerular Filtration Rate 77mL/min (>59) Glucose Level 122mg/dL (60-99) Calcium Level 9.3mg/dL (8.5-10.1) Phosphorus Level 4.5mg/dL (2.5-4.9) Magnesium Level 1.9mg/dL (1.6-2.6) Discharge Medications Discharge Medications ([Med Plus 2.0]) 90 ML PO TID (Reported) Ascorbic Acid (Vitamin C) 1,000 Mg Tab.chew 1,000 MG PO DAILY (Reported) Aspirin (Aspirin) 325 Mg Tablet 325 MG PO DAILY (Reported) Diazepam (Diazepam) 5 Mg Tablet 10 MG PO HS (Reported) Escitalopram Oxalate (Escitalopram Oxalate) 5 Mg Tablet 5 MG PO DAILY (Reported ) Fentanyl 50 mcg/hr Patch (Fentanyl 50 mcg/hr Patch) 50 mcg/hr Patch.td72 1 PATCH TRANSDERM Q3D (Reported) Fluconazole (Diflucan) 100 Mg Tab 100 MG PO DAILY Prescribed by: KYLEIGH FINCH DO Gabapentin (Neurontin) 300 Mg Capsule 600 MG PO HS Prescribed by: VASILE NICHOLE MD Hydromorphone (Dilaudid) 2 Mg Tablet 8 MG PO Q4H Prescribed by: VASILE NICHOLE MD Lactose-Reduced Food (Ensure Original) 237 Ml Liquid 237 ML PO 5XD (Reported) Mineral Oil/Pet Hy-Phl (Aquaphor) 1 Applic/Gm Oint 1 APPLIC TOP BID (Reported) Mirtazapine (Mirtazapine) 15 Mg Tablet 30 MG PO HS Prescribed by: VASILE NICHOLE MD Multivits-Min/FA/K/Lycopene (One-A-Day Men's 50+ Tablet) 1 Each Tablet 1 TABLET PO DAILY (Reported) Pantoprazole DR (Pantoprazole DR) 40 Mg Tablet.dr 40 MG PO BIDAC Prescribed by: VASILE NICHOLE MD Polyethylene Glycol 3350 (Polyethylene Glycol 3350) 17 Gm Powd.pack 17 GM PO DAILY (Reported) Prednisolone Acetate (Prednisolone Acetate) 5 Ml Drops.susp 1 DROP BOTH_EYES QID (Reported) Ranitidine (Ranitidine) 150 Mg Capsule 150 MG PO BID (Reported) Sennosides (Senna) 8.6 Mg Tablet 17.2 MG PO BID Prescribed by: VASILE NICHOLE MD Sucralfate (Sucralfate) 1 Gm Tablet 1 GM PO QID (Reported) Zinc Amino Acid Chelate (Zinc) 50 Mg Tablet 50 MG PO DAILY (Reported) As needed Acetaminophen (Acetaminophen) 325 Mg Capsule 650 MG PO Q4H PRN PRN For Pain ( Reported) Hydromorphone (Dilaudid) 2 Mg Tablet 8 MG PO Q3 PRN PRN For Pain Prescribed by: KYLEIGH FINCH DO Ondansetron ODT (Zofran ODT) 8 Mg Tablet 8 MG SL Q8H PRN PRN For Nausea ( Reported) Oxymetazoline HCl (Nasal Windsor Sinus) 30 Ml [place] 1-2 SPRAYS NS QID PRN PRN For Congestion (Reported) Prochlorperazine Maleate (Compazine) 10 Mg Tablet 10 MG PO Q4H PRN PRN For Nausea (Reported) Followup Plan Disposition: SNF likely,TBD Follow-up plan Please follow-up with PCP in 1 week. Please follow-up with oncologist Dr. Coronel in 1-2 week. Discharge Diet: Other (TPN as prescribed ,may also get honey thick diet orally ) Discharge Activity: Limited until seen by PCP Patient Instructions You were hospitalized due to intractable pain. Pain seems to be controlled with pain medications adjustment. You also have failure to thrive. PICC line inserted and started on TPN. Please continue TPN at nursing home facility. Follow-up Provider: Chivo Valadez MD Follow-up with PCP in: 1 week Time spent 35 minutes copies to: Chivo Valadez MD, Melaku MD January 13, 2017 12:13
[2017-01-13] MEDS ORDERED: FENT1PAT9 TRANSDERM (12:36)
[2017-01-13] MEDS ORDERED: DIAZ5TAB3 PO (12:36)
[2017-01-13] MEDS ORDERED: FLUC100T4 PO (12:36)
[2017-01-13] MEDS ORDERED: PANT20TA2 PO (12:37)
[2017-01-13 12:54] VITALS: BP 95/61; PULSE 86; RESP 16; O2SAT 98
--- NOTE | 2017-01-13 13:40 | NUR ---
Social Work- Update Note Data: EMR reviewed. Pt is on day 6 of hospitalization for pneumonia, failure to thrive per H&P. Discharge Orders are in. CINDY spoke with daughter/DPPAULA Willingham [phone] by phone regarding discharge plan. INTERACTIVE VIDEO TECHNICIAN reviewed the followin) Possibility of pt discharging to a SNF to manage TPN. Tarsha denied that this is an option for pt. 2) Discharging to pt's mother's home with [facility] RN PT and support from pt's brother. Tarsha states that this is the preferred discharge plan but nothing has been coordinated. CINDY spoke with Genet from [employer] regarding the level of family support pt would need for TPN at discharge. These needs include-- complete the training from [employer], someone to watch for symptoms of high blood glucose, test blood sugars twice per day, monitor the pump, add additives to TPN, change out the TPN every 24 hours, and liaison with dietary and pharmacy. INTERACTIVE VIDEO TECHNICIAN covered these needs extensively with Tarsha, Tarsha stated understanding. INTERACTIVE VIDEO TECHNICIAN provided contact information for Genet at [employer] [phone]. INTERACTIVE VIDEO TECHNICIAN requested Tarsha speak with her grandmother and her uncle (primary family supports for pt) regarding these needs and coordinate a care plan for pt's return home. Tarsha requested RN in the hospital to test if pt can manage TPN at home, CINDY spoke with environmental maintenance worker who denies that this is a possibility as pt's mentation waxes and wanes. environmental maintenance worker believes that pt will not be able to learn and maintain the necessary training for TPN. 3) Discharging to [facility] Swing Bed. INTERACTIVE VIDEO TECHNICIAN informed Tarsha that a Swing Bed is not an option for pt today, and pt is number four on waitlist at this time. Tarsha requested that INTERACTIVE VIDEO TECHNICIAN update her if a swing bed becomes available. INTERACTIVE VIDEO TECHNICIAN to continue to follow for swing bed availability. Tarsha stated understanding for all of the above items, denied any additional questions at this time. Tarsha stated she is going to appeal the discharge. UR RN notified. SW will continue to follow. MARK ANTHONY Mae Addendum: 01/13/17 at 1355 by RICHIE JAFFE Social Work also spoke with Tarsha regarding increasing JHONNY hours. Tarsha stated she will call [facility] to request an assessment and review for increase in pt's JHONNY hours. MARK ANTHONY Mae Addendum: 01/13/17 at 1456 by RICHIE JAFFE T/C from Genet at [facility]. Genet spoke with pt's daughter Tarsha regarding training for TPN for pt. Genet requested that pt be available tomorrow 01/14 at 10 AM for a RN from [facility] to come by and begin training to assess pt's ability to manage TPN care at home. MARK ANTHONY shared environmental maintenance worker's concerns related to pt's mentation. RN updated. MARK ANTHONY Mae
--- NOTE | 2017-01-13 15:08 | PCM.PHAPRO ---
Progress Poor nutritional status, fail to thrive TPN #6 Pt. unable to tolerate PO due to esophageal CA. On cyclic TPN. Anticipate TPN to continue outpatient. Pt. at 44% of goal with dextrose and lipids, 30% goal with lipids Electrolytes all WNL, glucose little high (122) Test 01/09/17 05:10 01/13/17 05:20 Reticulocyte Count,Calculated 0.8% (0.6-2.6) White Blood Count 2.0th/mm3 (3.8-10.1) Red Blood Count 2.71mil/mm3 (4.40-5.80) Hemoglobin 8.7g/dL (13.8-17.2) Hematocrit 25.1% (41.0-50.0) Mean Corpuscular Volume 92.6fL (81-100) Mean Corpuscular Hemoglobin 32.1pg (27.0-35.0) Mean Corpuscular Hemoglobin Concent 34.7% (32.0-37.0) Red Cell Distribution Width 15.0% (12.3-15.4) Platelet Count 181bil/L (150-400) Neutrophils (%) (Auto) 56.0% (40-74) Lymphocytes (%) (Auto) 15.5% (14-46) Monocytes (%) (Auto) 16.5% (4-12) Eosinophils (%) (Auto) 10.5% (0-5) Basophils (%) (Auto) 1.5% (0-3) CMP Test 01/07/17 11:30 01/09/17 05:10 01/11/17 05:00 01/13/17 05:20 Troponin T < 0.010ug/L Procalcitonin 0.06ng/mL Hold Coleman Top Tube Received Iron Level 77ug/dL Total Iron Binding Capacity 154ug/dL Percent Iron Saturation 50%sat Unsaturated Iron Binding 76.9ug/dL Ferritin 291ng/mL Vitamin B12 Level >1999pg/mL Folate 13.5ng/mL Total Bilirubin 0.3mg/dL Aspartate Amino Transf (AST/SGOT) 9U/L Alanine Aminotransferase (ALT/SGPT) 5U/L Alkaline Phosphatase 47U/L Total Protein 5.2g/dL Albumin 2.9g/dL Sodium Level 136mEq/L Potassium Level 4.4mEq/L Chloride Level 100mEq/L Carbon Dioxide Level 23mmol/L Blood Urea Nitrogen 18mg/dL Creatinine 1.04mg/dL Estimat Glomerular Filtration Rate 77mL/min Glucose Level 122mg/dL Calcium Level 9.3mg/dL Phosphorus Level 4.5mg/dL Magnesium Level 1.9mg/dL Plan: * per dietitian recommendation * increase dextrose to 200G * increase AA to 90G * increase lipids to 45G PARENTERAL NUTRITION ORDERS 6 - Standard Hang Time: 2100 Substrates Total kcal: 1490 AMINO ACIDS 90 g DEXTROSE 200 g Total Volume (mL): 2000 LIPIDS 45 g Sterile Water for Injection QS mL To Infuse Over (hrs): 12 Total Volume 2000 mL At at a rate of (mL/hr): see below Additives Sodium Chloride 80 mEq "typical" daily requirements Sodium Acetate 40 mEq Sodium 50-120mEq Potassium Chloride 40 mEq Potassium 60-120mEq Potassium Phosphate 10 mEq Phosphate 20-40mEq Calcium Gluconate 9 mEq Magnesium 8-32mEq Magnesium Sulfate 24 mEq Calcium 9-22mEq Acetate* 80-120mEq Chloride* 80-120mEq Regular Insulin units *Depending on acid-base status Famotidine 40 mg Multivitamins 1 std dose Insulin Regimen Trace Elements 1 std dose none Thiamine 100 mg Regular Low Intensity Subcut Folic Acid 1 mg Regular Medium Intensity Subcut Ascorbic Acid mg Regular High Intensity Subcut Regular Insulin Infusion Other: Special Instructions: To be infused via central line only. For delay or inturruption of TPN contact the pharmacist for alternative replacement solution. Infuse over 12 hours, from 2100 to ~0900. Start at 93ml/hr x 1 hr, then 186 mL/hr x 10 hrs, then 93 ml/hr until complete. Fernanda Campo Pharm.D January 13, 2017 15:08
--- NOTE | 2017-01-13 15:22 | NUR ---
faxed clinicals to [facility], . ID#[id number]
[2017-01-13] MEDS ORDERED: 0.9% Sodium Chloride 100 ML ONE (15:46)
[2017-01-13] MEDS: Pantoprazole 4 mg/mL 10 mL Inj IVPUSH SCH (15:54)
--- NOTE | 2017-01-13 16:24 | NUR ---
spiritual care: call light answered call light and pt expressed no specific need but reflected on his decision to "not be a baby" and his remorse over earlier words or behavior to nursing staff. Pt reflected on his diagnosis, living with pain and his sense of isolation from family as well as the stress of decisionmaking through his cancer treatment course. Pt said he couldn't get warm and i brought him a blanket and relayed his messages to nursing staff.
--- NOTE | 2017-01-13 18:33 | NUR ---
Medications Patient refused morning medications. Patient talk to nurse and stated he would take his mediations. Patient was administered all morning medications in honey thick water in the afternoon. Patient reported 9/10 back of neck pain. .05mg of Dilaudid given. Scheduled ondansetron given. Patient resting in chair. Patient more alert this shift. Call light and tray table within reach. Will continue to monitor patient hourly.
[2017-01-13 20:17] VITALS: BP 111/65; PULSE 72; O2SAT 100
[2017-01-13] MEDS ORDERED: Sodium Chloride LOK Flush 10 mL Syringe IVFLUSH PRN ×2 (20:25)
--- NOTE | 2017-01-13 20:26 | NUR ---
Pt found to have removed his PICC line- new orders placed by MD for replacement PICC. IVT aware.
[2017-01-13] MEDS: Total Parenteral Nutrition 1 BAG IV SCH (22:58)
[2017-01-14] MEDS: Heparin 5,000 Unit/mL Inj SUBQ SCH ×3 (00:15→16:21)
[2017-01-14] MEDS: Ondansetron 2 mg/mL 2 mL Inj IVPUSH SCH ×4 (04:05→21:30)
--- NOTE | 2017-01-14 04:44 | NUR ---
New PICC Pt has 1:1 sitter for safety. He is restless and requests to get OOB and dressed, reorients and remains in bed unless up to BR. Pt steady with sba. Given PO apap for pain. TPN infusing through new picc. Care continues
[2017-01-14 05:10] VITALS: BP 103/61; PULSE 68; RESP 18; O2SAT 99
[2017-01-14 06:51] LABS: Magnesium 1.7 mg/dL (1.6-2.6); Phosphorus 4.9 mg/dL (2.5-4.9)
--- NOTE | 2017-01-14 08:18 | DRSVH ---
PROCEDURE: X-RAY PICC LINE PLACEMENT BY NURSE ([id number]) INDICATIONS: need access COMPARISON: [facility], CR, XR PICC LINE PLACE BY NURSE, 01/08/2017, 16:33. FINDINGS: PICC was placed by the intravenous therapy team from the right side. Fluoroscopic spot fi lm demonstrates tip projected over the lower SVC. IMPRESSION: Tip of PICC projected over the lower SVC . Dictated by: Sebastián SOL Interpreted: Jazzmine Ferrari MD on 01/14/2017 at 8:17 Transcribed by: MAGDA on 01/14/2017 at 8:18 Approved by: Jazzmine Ferrari M.D. on 01/14/2017 at 17:41
[2017-01-14] MEDS: Pantoprazole 4 mg/mL 10 mL Inj IVPUSH SCH (08:33)
[2017-01-14] MEDS ORDERED: Magnesium Sulf 2 Gm/50mL Water 2 GM in IV Premix 1 EACH IV ONE (09:30)
[2017-01-14] MEDS ORDERED: 0.9% Sodium Chloride 250 ML ONE (09:40)
[2017-01-14 09:50] VITALS: BP 106/67; PULSE 75; RESP 16; O2SAT 97
[2017-01-14 10:34] LABS: BASOPHILS % (AUTO) 0.7 % (0-3); EOSINOPHILS % (AUTO) 7.6 % (0-5); MONOCYTES % (AUTO) 18.2 % (4-12); Mean Corpuscular Hemoglobin 31.7 pg (27.0-35.0); NEUTROPHILS % (AUTO) 61.9 % (40-74); Platelet Count 178 bil/L (150-400)
[2017-01-14 12:11] VITALS: BP 124/76; PULSE 78; RESP 16; O2SAT 100
--- NOTE | 2017-01-14 13:55 | NUR ---
NUTRITION FOLLOW UP: ASSESS: 61 YO M admitted with pneumonia, failure to thrive, neck pain and inability to eat. Pt has refused PEG tube placement. PICC line was placed and TPN was initiated on 01/08. TPN is being advanced daily to goal rate and pt appears to be tolerating TPN well. Pt continues to refuse po diet, c/o throat pain/nausea, some confusion. Per past admits notes, pt reports he has lost 75-80 lb over the past year, mainly due to throat pain, mucositis, decreased appetite. Pt was able to gain some weight back and then lost the weight again while undergoing chemo and radiation, which he has now completed. PMHX: Right esophageal/oropharyngeal CA, HTN, depression, severe malnutrition. LABS: Reviewed. Glu 105, Phos 4.9, Mg 1.7, K+ 4.5. MEDS: Reviewed. GI: BM x 1 (01/11). WT: 61.9 kg. Admit weight: 64.1 kg (01/08/17). 06/09/2012: 90.7 kg (stated) UBW 114.5 kg (230 lbs) DIET: Full liquid diet, Honey thick, Chocolate ensure all trays. Pt refusing PO intake. TPN: 200 g dextrose, 90 g AA, 45 g lipids to provide 1490 kcals and 90 g protein per day. TPN is currently cyclic and running over 12 hours. EST. 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 2) Inadequate oral intake related to swallowing difficulties as evidenced by current refusal of PO intake x 7 days--PERSISTS. NUTRITION INTERVENTION: 1.) Recommend increasing TPN today to 250 g Dextrose, 105 g amino Acids and 55 g lipids to provide 1820 kcals and 105 g protein per day. 2.) Continue to advance TPN over the next couple of days to goal TPN of 350 g dextrose, 120 g Amino Acids and 60 g lipids to provide 2270 kcals and 120 g protein per day. Given high amount of dextrose in goal TPN, cyclic TPN will need to run for longer than 12 hours in order to provide a safe glucose infusion rate. MONITOR / EVAL: TPN tolerance/advancement, PO intake, weights, labs, nutrition status, POC. Continue to monitor per high nutrition risk guidelines. Addendum: 01/15/17 at [address] No labs were ordered for today per EMR review. Pt was to discharge today but there has been some insurance authorization issues per notes. Recommend increasing TPN today to 250 g Dextrose, 120 g amino acids and 60 g lipids to provide 1930 kcals and 120 g protein, receiving 85% of goal TPN at this time. TPN still running over 12 hours so not comfortable increasing the dextrose with no current labs and issues surrounding exceeding the max glucose infusion rate. If labs continue to be stable tomorrow, recommend increasing dextrose in TPN as long as TPN will be infused over 24 hours. Will continue to monitor.
--- NOTE | 2017-01-14 14:08 | PCM.PHAPRO ---
Progress Poor nutritional status, fail to thrive Poor nutritional status, failure to thrive due to chemo/radiation treatment with inability to eat/malnutrition TPN Management: TPN #7 -Continuation of TPN - nocturnal/12hr regimen -magnesium was repleated this morning with 2gm ivpb Mag Sulfate for a level of 1.7 -macronutrients recommended by nutrition: AA 105gm, Dextrose 250gm, Lipids 55gm -LFTs checked today and were WNL Laboratory Tests Test 01/14/17 06:20 01/14/17 13:56 White Blood Count 2.8th/mm3 (3.8-10.1) Red Blood Count 2.71mil/mm3 (4.40-5.80) Hemoglobin 8.6g/dL (13.8-17.2) Hematocrit 25.2% (41.0-50.0) Mean Corpuscular Volume 93.0fL (81-100) Mean Corpuscular Hemoglobin 31.7pg (27.0-35.0) Mean Corpuscular Hemoglobin Concent 34.1% (32.0-37.0) Red Cell Distribution Width 15.1% (12.3-15.4) Platelet Count 178bil/L (150-400) Neutrophils (%) (Auto) 61.9% (40-74) Lymphocytes (%) (Auto) 11.6% (14-46) Monocytes (%) (Auto) 18.2% (4-12) Eosinophils (%) (Auto) 7.6% (0-5) Basophils (%) (Auto) 0.7% (0-3) Sodium Level 137mEq/L (134-144) Potassium Level 4.5mEq/L (3.5-5.2) Chloride Level 101mEq/L (97-108) Carbon Dioxide Level 23mmol/L (18-29) Blood Urea Nitrogen 25mg/dL (8-27) Creatinine 1.04mg/dL (0.76-1.27) Estimat Glomerular Filtration Rate 77mL/min (>59) Glucose Level 105mg/dL (60-99) Calcium Level 9.1mg/dL (8.5-10.1) Phosphorus Level 4.9mg/dL (2.5-4.9) Magnesium Level 1.7mg/dL (1.6-2.6) Total Bilirubin 0.3mg/dL (0.0-1.2) Aspartate Amino Transf (AST/SGOT) 10U/L (0-50) Alanine Aminotransferase (ALT/SGPT) 5U/L (0-44) Alkaline Phosphatase 48U/L (25-160) Total Protein 5.5g/dL (6.4-8.4) Albumin 3.0g/dL (3.4-5.0) Procalcitonin 0.06ng/mL (0.00-0.08) Microbiology 01/07/17 Blood Culture - Final, Complete NO GROWTH AFTER 5 DAYS -Plan: * electrolytes stable * continue TPN with changes to macronutrients as recommended by extension associate * anticipate discharge 01/15 PARENTERAL NUTRITION ORDERS 7 14-Jan-17 Standard Hang Time: 2100 Substrates Total kcal: 1820 AMINO ACIDS 105 g DEXTROSE 250 g Total Volume (mL): 2000 LIPIDS 55 g Sterile Water for Injection QS mL To Infuse Over (hrs): 12 Total Volume 2000 mL At at a rate of (mL/hr): see below Additives Sodium Chloride 80 mEq "typical" daily requirements Sodium Acetate 40 mEq Sodium 50-120mEq Potassium Chloride 40 mEq Potassium 60-120mEq Potassium Phosphate 10 mEq Phosphate 20-40mEq Calcium Gluconate 9 mEq Magnesium 8-32mEq Magnesium Sulfate 24 mEq Calcium 9-22mEq Acetate* 80-120mEq Chloride* 80-120mEq Regular Insulin units *Depending on acid-base status Famotidine 40 mg Multivitamins 1 std dose Insulin Regimen Trace Elements 1 std dose none Thiamine 100 mg Regular Low Intensity Subcut Folic Acid 1 mg Regular Medium Intensity Subcut Ascorbic Acid mg Regular High Intensity Subcut Regular Insulin Infusion Other: Special Instructions: To be infused via central line only. For delay or inturruption of TPN contact the pharmacist for alternative replacement solution. Infuse over 12 hours, from 2100 to ~0900. Start at 93ml/hr x 1 hr, then 186 mL/hr x 10 hrs, then 93 ml/hr until complete. Fernanda Campo Pharm.D January 14, 2017 14:07
--- NOTE | 2017-01-14 14:19 | NUR ---
Called [facility] [place] [place] and spoke with Erika Ohara, she was unsure of bed availability and transferred me to [facility] where I had to leave a voicemail regarding this patient and status for bed. Addendum: 01/14/17 at 1440 by ARPITA CLAYTON [facility] called and let us know he is now third on the wait list and they will not have a bed for him.
--- NOTE | 2017-01-14 14:19 | PCM.PALLBR ---
Palliative Care Recommendation Mr. Colten Moreno is unfortunate 61-year-old gentleman with oropharyngeal cancer, now hospitalized with intractable pain, possible healthcare associated pneumonia, progressive inanition and failure to thrive with associated malnutrition. Palliative medicine consulted to assist with symptom management. Overall, pt seems to be improving physically, appears depressed/low mood today. Hospital Day #8. Summary of palliative recommendations: -Symptom management (Pain/other) - Pain: Dr. Coronel advises me that patient is always more interested in getting opiates and benzodiazepines filled, and Dr. Coronel spends more time discussing this at office visits and trying to cut patient back. He also says that typically pt is requesting IV pain meds vs. topical or oral meds--even when his throat was not as painful. In view of this information, Palliative Care is going to change pain plan today as follows: 1. We will decrease his fentanyl patch from 50mcg/48h to 25mcg/48 hr. . Patient's body habitus (extremely lean with limited subcutaneous fat) likely limits the utility of topical fentanyl, which is why we order patch changed every 48 instead of 72 hours. 2. Will continue to have oral hydromorphone 8mg PO Q3H PRN available. 3. Anxiety and history of Benzodiazepines use/overuse: agree with med team decision to discontinue valium and replace with remeron. If looking for more antidepressant effect, 30mg is good dose; if looking for some appetite stimulus , 15mg is the preferred dose. - -DPOA/Advanced Directives/POLST- did not review today, given focus on pain management. However, patient was adamant on 01/12 discussion with Palliative Care that he will go through any treatment that keep him alive, for himself and his daughter. -Family/emotional support- Daughter Tarsha is pt's HCPOA. Please see Case Management notes for details. Family does not feel like the patient can be discharged home, but they do not want SNF either. The patient might to to [facility] [place] for a swing bed. Discharge planning per Case management. Problems: End of Life Preferences Full code Goals of Care Control of symptoms and nutritional support Disposition To be determined Resuscitation Status Resuscitation Status: CPR: Attempt Resuscitation . Symptom management: Depression, Anxiety, Pain Total time 35 minutes; >50% face to face with patient and/or family, providing counselling regarding plans and recommendations, and in care coordination with his/her medical teams. Palliative Brief Note Date of Service January 14, 2017 . Per RN notes, patient was confused overnight and accidently pulled his IV out. He is more awake today, still complaining of sore throat. Pt seen on afternoon rounds with Dr. Coronel present. Pt is oriented to self and place. Upset from a phone call with his sister who is critically ill. He worries he may not get out of hospital in time to see her "one last time." Libia Almaguer MD January 14, 2017 14:19
[2017-01-14 14:38] LABS: APPEARANCE,URINE HAZY (CLEAR,HAZY); COLOR,URINE STRAW (YELLOW); OCCULT BLOOD,URINE NEGATIVE (NEGATIVE); UROBILINOGEN,URINE NORMAL (NORMAL)
--- NOTE | 2017-01-14 15:24 | NUR ---
nurse reviewersystems management consultant note: Talked with patient at his bedside. He appears depressed evidenced by "Dr. Coronel doesn't care about me anymore". I explained to patient Dr. Coronel does care about you very much and he has been here to see you. I asked if he had seen his daughter Tarsha and patient stated, "She doesn't care about me either". I tried to reassure patient Dr. Coronel and Tarsha, his daughter care about him very much. Patient does have a h/o dementia and is forgetful at times. Patient did identify me correctly by saying, "You're my nurse over at the chemo center". He did not remember my name. Anticipate discharge to SNF possibly tomorrow. Will continue to provide assistance as needed.
--- NOTE | 2017-01-14 15:26 | NUR ---
Called and spoke with Priscilla in admissions and she let me know they can not do TPN at this time. [facility] also does not do TPN Spoke with Roseann at [facility] and they can accept TPN on case by case basis, Gave access and faxed facesheet Left message for Shannan regarding TPN capabilities Updated [facility] [place] Addendum: 01/14/17 at 1627 by ARPITA CLAYTON CM Spoke with Marin in admissions and neither [facility] or [facility] has capabilities for TPN. Updated SHEAR TENDER
--- NOTE | 2017-01-14 16:05 | NUR ---
Social Work: Continued d/c planning Data: ADVERTISING ASSISTANT MANAGER spoke with pt's daughter who is now willing for SNF after speaking with oncologist. She states [facility] [place] as preference. UR specialist states they do not accommodate TPN. UR Specialist looking into SNF options for pt that accomadate TPN. ADVERTISING ASSISTANT MANAGER will update pt's daughter in the AM on 01/15. [facility] [place] does not have a bed for pt today. ADVERTISING ASSISTANT MANAGER will continue to follow. Plan: Pt will d/c to SNF for TPN management. Previous plan was home with pt's mother with [facility] vs [facility] swing bed. MARK ANTHONY Flynn
[2017-01-14] MEDS: FLUCONAZOLE IV SCH (16:21)
[2017-01-14] MEDS: STERILE IV SCH (16:21)
--- NOTE | 2017-01-14 18:07 | PCM.PNMED ---
Subjective Date of Service January 14, 2017 Subjective Patient was confused overnight requiring a sitter briefly. He removed his PICC line and replaced overnight. Alert and oriented 2 today. He admits he was confused last night. Discontinued valium Exam Vital Signs Vital Sign - Last Date Time Temp Pulse Resp B/P Pulse Ox O2 Delivery O2 Flow Rate FiO2 01/14/17 12:11 36.8 78 16 124/76 100 Room Air Intake and Output 01/13/17 01/13/17 01/14/17 Cumulative From/Thru 15:00 23:00 07:00 01/07/17 11:07 - 01/14/17 06:50 Intake Total 1012 ml 120 ml 1444 ml 85211 ml Output Total 1510 ml Balance 1012 ml 120 ml 1444 ml 04353 ml Intake Oral 120 ml 690 ml IV Total 233 ml 6843 ml TPN/PPN 1012 ml 1211 ml 9080 ml Output Urine Total 1510 ml # Voids 2 11 # Bowel Movements 2 Exam Physical exam: No acute distress HEENT: Normocephalic, atraumatic thick secretions in mouth and appearance of candidiasis but improved Heart: Regular rate and rhythm, distant sounds due to barrel chest Lungs: Clear to auscultation bilaterally no crackles or wheezes appreciated Abdomen flat, non-tender, nondistended bowel sounds are normal Extremities: Negative for edema Skin : warm and dry Neuro no focal deficits, oriented to place and Person Psych alert and oriented 2, baseline now IVs and Medications Medications Reviewed: Medications were reviewed in detail Lab and Diagnostics Result Diagram: 01/14/1761901/14/17 06 X-Rays, CTs and MRIs PROCEDURE: CT ANGIO CHEST PULMONARY EMBOLISM ([id number]) 1. No pulmonary emboli. 2. Patchy airspace disease within the bilateral lower lobes and right middle lobe is suggestive of pneumonia. 3. Extensive centrilobular emphysema. 4. Small hiatal hernia. Mild prominence of the distal esophageal wall may be related to esophagitis and clinical correlation is recommended. Dictated by: Kendrick Lockhart M.D. on 01/07/2017 at 12:34 Additional Diagnostics NUTRITION ASSESSMENT: ASSESS: 61 YO M admitted with pneumonia, failure to thrive, neck pain and inability to eat. Pt has refused PEG tube placement in the past but is status post PICC line placed with initiation of TPN 01/08. Per notes, pt has lost 75- 80 lb over the past year, mainly due to throat pain, mucositis, decreased appetite. Pt was able to gain some weight back and then lost the weight again while undergoing chemo and radiation, which he has now completed. He is refusing all PO except for applesauce when oral medication is required. Barium swallow ordered and is pending. PMHX: Right esophageal/oropharyngeal CA, HTN, depression, severe malnutrition. LABS: Reviewed. Phos 5.4. MEDS: Reviewed. Remeron, fentanyl. GI: BM x 1 (01/08). WT: 64.1 kg, BMI 19.0 kg/m2. Admit weight: 64.1 kg. UBW 114.5kg ( 230lbs) DIET: Full liquid diet, Honey thick, Chocolate ensure all trays. Pt refusing PO intake. TPN: 130 g dextrose, 60 g Amino acids and 30 g lipids to provide 982 kcals and 60 g protein per day. EST. 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 2) Chewing swallowing difficulties related to mucositis, as evidenced by pt. refusal of PO intake, request by ST for barium swallow. NUTRITION INTERVENTION: 1) Diet per ST recommendations. 2) Recommend continue same TPN over weekend, pending resolution of refeeding risk. Recommend slowly advancing TPN over the next 7-10 day while pay close attention to labs (Mg, Phos, K+, Glu, Etc.) to goal TPN of 350 g dextrose, 120 g Amino Acids and 60 g lipids to provide 2270 kcals and 120 g protein per day. MONITOR / EVAL: TPN tolerance/advancement, PO intake, weights, labs, nutrition status, POC. Continue to monitor per high nutrition risk guidelines. Assessment & Plan This is a 60-year-old white male with history of oropharyngeal cancer who has just recently finished chemoradiation, is having trouble driving because of poor nutrition status. He is in need of a PICC line for nutrition. He is found to have pneumonia and a CT PE protocol in the ER # Intractable pain due to chronic low back pain and also esophageal/ oropharyngeal cancer -- Palliative care is managing the patient's pain regimen. Patient initially required BUILDING CONSTRUCTION CONTRACTOR Dilaudid -Current pain regimen:fentanyl patch, 50 g Q48H. , oral hydromorphone 8mg PO Q3H PRN # Suspected health care associated pneumonia, POA,resolved -- Patient treated for HCAP. Unsure if he had pneumonia, only evidence is imaging -- Urine strep, urine legionella tests are ordered: Negative -- Pro-calcitonin negative, -- Levaquin IV ABX 's at 750 mg IV daily, clindamycin IV was added 01/08 for anaerobic coverage. Patient asymptomatic. Afebrile. No cough. completed 5 day course.Discontinued antibiotics on 01/12. #Brief confusion overnight -due to valium , now discontinued -Patient now at baseline # . Severe protein calorie malnutrition, failure to thrive -- PICC line placed 01/08 -- Speech recommends full liquid diet with honey thickened liquids. -Patient has been on TPN for the last few days. Tolerating well with no side effects. Patient will be discharged on TPN. # depression: -- Restarted home meds escitalopram, Mirtazipine # anxiety disorder: -- Patient takes Valium by mouth. Dose lowered to 5 mg per palliative team due to lethargy -- IV Ativan 1 mg twice a day when necessary. # Dementia, chronic -- Continue to monitor -Prior oncology note states patient had cognitive decline at baseline #Hypomagnesemia: Resolved CODE STATUS: full code,poa daughter Tarsha Moreno [phone] Disposition: Discharge to usp facility when bed is available, is otherwise with home infusion services for TPN GI Prophylaxis: Proton Pump Inhibitor VTE Prophylaxis: Sub-Q Heparin (Unfractionated) Resuscitation Status: CPR: Attempt Resuscitation Norman Dong MD January 14, 2017 18:07
[2017-01-14 18:30] VITALS: BP 125/75; PULSE 73; RESP 14; O2SAT 99
--- NOTE | 2017-01-14 19:06 | CCS NOTE ---
[facility] [address] [place] [address], [address] [address] MEDICAL ONCOLOGY OFFICE NOTE PATIENT: KRYSTIN GIBBS : 1955 MR#: [id number] DATE: 01/07/2017 JOB ID: [id number] DATE: 01/14/2017 SUBJECTIVE: The patient is sitting at the bedside, although somewhat confused still, but still interactive and in no acute distress. He has pulled his PICC line and a new PICC line had to be placed to continue TPN. He complains of pain in his throat area and also at one time had refused his oral medication. I noticed that he has oral thrush, but he has not taken the fluconazole. EXAMINATION: On exam, his mucositis is getting better although thrush on the tongue surface is still present. No significant external radiation dermatitis, new PICC line in place. He is able to stand up from the bedside and has a bed alert device when he gets up. LABS: Show still a residual white count abnormality with a total white count of 2.8. His absolute neutrophil count, however, is above 1000. The albumin is low but slightly improved. Creatinine is normal. ASSESSMENT AND PLAN: A 66-year-old gentleman with history of stage [place] locally advanced head and neck cancer without distant metastases treated with induction chemotherapy followed by chemoradiation that he finished on January 06, 2017. He had to be admitted for failure to thrive, pain management for mucositis and an early pneumonia possibly due to aspiration. He has been started on TPN. There have been some challenges with his management including his episodes of confusion. He did have already at baseline a cognitive impairment when we first saw him, with memory issues and needing some assistance to manage his affairs, but his degree of confusion has clearly deteriorated toward the end of chemoradiation due to multiple factors including pain medication and hospitalization. I am noticing that his mucositis is getting better. I think he might have an exaggeration of the degree of complaints of pain in his throat that might, unfortunately, lead to excessive opioid use which then will exacerbate his confusion and entering a vicious cycle. He is currently on fentanyl patch 50 m[address] I spoke with Dr. Almaguer of Palliative Care to decrease that to 25 mcg. There have been also some challenges regarding his disposition. I was able to contact his daughter, Tarsha, and had a long and detailed conversation about her dad's status and the options for discharge. Tarsha is his power of transactional attorney. I truly believe that he would be better served to be discharged to usp facility with continuation of TPN rather than going to his mother's house as managing the TPN will be very challenging as an outpatient for this family in the absence of the physical presence of the daughter. I anticipate that he will need TPN for a couple of more weeks and then being at [facility] would be more appropriate for professional management of the situation. His daughter, at the end of the conversation, is agreeable. I went back and visited the patient a second time during the evening and discussed that with him as well and he is agreeable as well. Therefore, I would suggest to plan the discharge planning in that direction. TIME SPENT WITH PATIENT: Approximately 1 hour and 10 minutes were spent in counseling and coordination of care.
[2017-01-14 21:00] VITALS: BP 112/70; PULSE 72; RESP 16; O2SAT 100
[2017-01-14] MEDS: Total Parenteral Nutrition 1 BAG IV SCH (21:58)
[2017-01-15] MEDS: Heparin 5,000 Unit/mL Inj SUBQ SCH ×3 (01:43→16:22)
[2017-01-15] MEDS: Ondansetron 2 mg/mL 2 mL Inj IVPUSH SCH ×4 (04:20→23:04)
--- NOTE | 2017-01-15 05:00 | NUR ---
TPN TPN infusing without incident, pt given zofran scheduled and has no complaints of nausea. PO meds tolerated crushed in apple sauce. APAP given at HS and no further PRNs for pain. Pt is lethargic and sleeping most of shift. No SOB or chest pain. Care continues
[2017-01-15 05:20] VITALS: BP 114/71; PULSE 72; RESP 18; O2SAT 97
--- NOTE | 2017-01-15 06:54 | NUR ---
Case Management: Left messages on 01/14/17 at 1422 and 1448 for daughter, Brittany (listed as POA) @ [phone] in attempt to deliver HINN letter. Evening UR stopped by room twice and no family present. Skylar Jackson RN
--- NOTE | 2017-01-15 07:07 | NUR ---
Case Management Message left at [phone] @ [phone] for Brittany Moreno in attempt to deliver HINN. Skylar Jackson RN
--- NOTE | 2017-01-15 07:55 | NUR ---
Case Management: HINN delivered to daughter/POA, Tarsha Moreno via telephone [phone] @ [phone]. HINN scanned to Brittany Leach and original placed in chart. Skylar Jackson RN
--- NOTE | 2017-01-15 09:09 | NUR ---
Palliative care note D/A: Review of chart conducted, note later conversation between Dr. Coronel and pt dtr. He strongly recommended SNF for TPN to her. She agreed at that time. Have [place] [facility] IT TECHNICAL ARCHITECT indicating above. P: Palliative care to follow. Isaura MARIO CCM Addendum: 01/15/17 at 1428 by FITZ FUCHS PC note amendment D/A: Phone call and discussion of case with Alicia HOPSON in regards to case. She indicates that [facility] has declined to accept pt. CM dept is now attempting SNF placement for pt in [facility] and has reached out [place] [facility] and [facility] R[facility]. Dr. Hernandez informed. Dtr has filed second level appeal. P: Palliative care to follow. Isaura MARIO [facility]
--- NOTE | 2017-01-15 09:30 | NUR ---
[facility] is unable to accept patient they do not have nurses to accommodate TPN. Gave access and faxed facesheet to [facility] they are reviewing now. Updated BATCH ROLLER OPERATOR Addendum: 01/15/17 at 1243 by ARPITA CLAYTON CM [facility] has reviewed patient and is not able to accept due to TPN costs/needs and potential share cost once patient transitions off [employer]. Called and left message for Stephanie Sauer regarding TPN capabilities. Spoke with Mary at [facility] and currently they are not able to handle TPN. They will be training their nurses next week. Updated BATCH ROLLER OPERATOR Addendum: 01/15/17 at 1307 by ARPITA CLAYTON CM Stephanie Sauer in [place] is unable to take TPN patients at this time. Updated BATCH ROLLER OPERATOR
[2017-01-15 10:16] VITALS: BP 129/71; PULSE 85; RESP 16; O2SAT 98
[2017-01-15] MEDS ORDERED: Fentanyl TOPICAL (10:55)
--- NOTE | 2017-01-15 12:42 | PCM.PHAPRO ---
Progress Poor nutritional status, fail to thrive PARENTERAL NUTRITION ORDERS 8 15-Jan-17 Standard Hang Time: 2100 Substrates Total kcal: 1930 AMINO ACIDS 120 g DEXTROSE 250 g Total Volume (mL): 2000 LIPIDS 60 g Sterile Water for Injection QS mL To Infuse Over (hrs): 12 Total Volume 2000 mL At at a rate of (mL/hr): see below Additives Sodium Chloride 80 mEq "typical" daily requirements Sodium Acetate 40 mEq Sodium 50-120mEq Potassium Chloride 40 mEq Potassium 60-120mEq Potassium Phosphate 10 mEq Phosphate 20-40mEq Calcium Gluconate 0 mEq Magnesium 8-32mEq Magnesium Sulfate 24 mEq Calcium 9-22mEq Acetate* 80-120mEq Chloride* 80-120mEq Regular Insulin units *Depending on acid-base status Famotidine 40 mg Multivitamins 1 std dose Insulin Regimen Trace Elements 1 std dose none Thiamine 100 mg Regular Low Intensity Subcut Folic Acid 1 mg Regular Medium Intensity Subcut Ascorbic Acid mg Regular High Intensity Subcut Regular Insulin Infusion Other: Special Instructions: To be infused via central line only. For delay or inturruption of TPN contact the pharmacist for alternative replacement solution. Infuse over 12 hours, from 2100 to ~0900. Start at 93ml/hr x 1 hr, then 186 mL/hr x 10 hrs, then 93 ml/hr until complete. Signature Date: KRYSTIN GIBBS [address] [facility] Jose Guadalupe Sampson Pharm.D January 15, 2017 12:42
--- NOTE | 2017-01-15 12:56 | NUR ---
Social Work: Continued d/c planning Data & Assessment: EMR reviewed. Pt is on day 8 of hospitalization for pneumonia, failure to thrive. Pt is medically stable for discharge. Pt's MCR appeal has been completed, discharge has been upheld. Pt discussed in rounds, MD feels strongly that SNF is medically necessary for pt's care. BUSINESS CONTROLLER spoke with [place] Nathan, [facility] liaison, regarding pt's discharge plan. [place] and [facility] RN have met pt and spoken with pt's mother (primary support at home). [place] stated that he does not believe that pt would be able to manage TPN infusion at home, even with his family support. BUSINESS CONTROLLER spoke with pt's daughter, Tarsha, who is now agreeable to SNF, though we have not found placement. Tarsha stated understanding for private costs incurred through hospitalization. UR Specialist has completed referrals for all facilities in [facility], none are able to accept pt at this time. BUSINESS CONTROLLER spoke with Tarsha regarding this, Tarsha agreeable to referrals to facilities in [place]. Referrals have been made to: 1) [facility] 2) [facility] Plan: Pt will d/c to SNF for TPN management. Referrals have been faxed, SW will continue to follow closely as discharge plan evolves. MARK ANTHONY Mae Addendum: 01/15/17 at 1535 by RICHIE PELAYO SS SW informed pt of current discharge plan to SNF pending acceptance. Pt is very frustrated by this, SW provided emotional support and active listening to pt. BUSINESS CONTROLLER offered affiliate manager and caring police academy instructor services, pt adamantly declined these. Pt declined Newspaper and books to read, BUSINESS CONTROLLER left them in room. Pt stated he misses his , family, SW validated this. Pt requested to go for a walk, BUSINESS CONTROLLER and RN facilitated this, Pt then declined RN student who would have to walk with him. SW continues to follow. MARK ANTHONY Mae
[2017-01-15] MEDS: FLUCONAZOLE IV SCH (13:06)
[2017-01-15] MEDS: STERILE IV SCH (13:06)
--- NOTE | 2017-01-15 13:27 | NUR ---
RECEIVED TC FROM [facility] AT [facility], PT'S DAUGHTER FILED A 2ND LEVEL APPEAL. PER BART IT WILL TAKE 1-3 DAYS TO PROCESS. ADVISED SAUL RN AND VENEER TRIMMER.
--- NOTE | 2017-01-15 14:02 | PCM.PALLBR ---
Palliative Care Recommendation Mr. Colten Moreno is unfortunate 61-year-old gentleman with oropharyngeal cancer, now hospitalized with intractable pain, possible healthcare associated pneumonia, progressive inanition and failure to thrive with associated malnutrition. Palliative medicine consulted to assist with symptom management. Summary of palliative recommendations: -Symptom management (Pain/other) - Pain: Dr. Coronel advised Dr. Almaguer that patient is always more interested in getting opiates and benzodiazepines filled, and Dr. Coronel spends more time discussing this at office visits and trying to cut patient back. He also says that typically pt is requesting IV pain meds vs. topical or oral meds--even when his throat was not as painful. In view of this information, Palliative Care changed pain regimen on 01/14/11: 1. Fentanyl patch decreased from 50mcg/48h to 25mcg/48 hr on 01/14. Discussed with Dr. Dong- he was concerned about the patient's continued lethargy/somnolence and so today was going to modify back to the 25 g/72 hour schedule. Patient's body habitus (extremely lean with limited subcutaneous fat ) likely limits the utility of topical fentanyl, so will continue to monitor response. 2. Will continue to have oral hydromorphone 8mg PO Q3H PRN available- note that he has been using it minimally however. 3. Anxiety and history of Benzodiazepines use/overuse: agree with med team decision to discontinue diazepam and replace with Remeron, 30 mg QHS. (If looking for more antidepressant effect, 30mg is good dose; if looking for some appetite stimulus, 15mg is the preferred dose.) - -DPOA/Advanced Directives/POLST- did not review today, given focus on pain management. However, patient was adamant on 01/12 discussion with Palliative Care that he will go through any treatment that keep him alive, for himself and his daughter. -Family/emotional support- Daughter Tarsha is pt's HCPOA. Please see Case Management notes for details. GRAPHIC DESIGN PROFESSOR note today indicates that patient's family has filed a second level appeal of discharge which will likely take several days to sort out. Problems: End of Life Preferences Full code Goals of Care Control of symptoms and nutritional support Disposition To be determined Resuscitation Status Resuscitation Status: CPR: Attempt Resuscitation . Pain: Mild Symptom management: Depression, Pain Total time 30 minutes; >50% face to face with patient , providing counselling regarding plans and recommendations, and in care coordination with his medical teams. Palliative Brief Note Date of Service January 15, 2017 . Returned to reevaluate patient. Prior to visiting, reviewed updated records in the EMR in detail, spoke with his bedside nurse and received signout from prior palliative provider. I also reviewed his status with his hospitalist. Dr. Coronel's note of 01/14/17 reviewed and much appreciated The patient reported that the patient had been quite depressed, asking for a knife, saying that there was just no point in going on. When I arrived, he was lying in bed, curled up on his left side. He awakened easily. He does appear and expresses being depressed. His biggest issue is that he wants to get out of the hospital. When I told him that plans are moving forward and hopefully he could be discharged as soon as today, he initially brushed this off. He says that his pain is adequately controlled. He is not delirious. His physical exam remained stable. I did carefully review with him our current impressions and expectations of his prognosis. Reassured him that he is over the worst of his treatment, and now with additional nutritional support should begin to feel significantly better very soon. Also reassured and reminded him that his cancer has a high likelihood of being cured and encouraged him to focus on this and on his recovery, now that he has completed his chemo and radiation therapy. Nasim Hernandez MD January 15, 2017 14:02
[2017-01-15 15:22] VITALS: BP 121/63; PULSE 75; RESP 16; O2SAT 98
--- NOTE | 2017-01-15 15:26 | NUR ---
Spoke with Anya saeed Elizabeth and explained patient's history, faxed clinicals to [phone]. Updated QUALITY RN
--- NOTE | 2017-01-15 17:43 | PCM.PNMED ---
Subjective Date of Service January 15, 2017 Subjective No new events. Patient alert and oriented and at baseline. Awaiting placement to correction facility. Exam Vital Signs Vital Sign - Last Date Time Temp Pulse Resp B/P Pulse Ox O2 Delivery O2 Flow Rate FiO2 01/15/17 15:22 36.8 75 16 121/63 98 Room Air Intake and Output 01/14/17 01/14/17 01/15/17 Cumulative From/Thru 15:00 23:00 07:00 01/07/17 11:07 - 01/15/17 06:58 Intake Total 50 ml 658 ml 1799 ml 21860 ml Output Total 850 ml 900 ml 3260 ml Balance 50 ml -192 ml 899 ml 87826 ml Intake Oral 50 ml 440 ml 50 ml 1230 ml IV Total 218 ml 234 ml 7295 ml TPN/PPN 1515 ml 97602 ml Output Urine Total 850 ml 900 ml 3260 ml # Voids 1 12 # Bowel Movements 2 Exam Physical exam: No acute distress HEENT: Normocephalic, atraumatic thick secretions in mouth and appearance of candidiasis but improved Heart: Regular rate and rhythm, distant sounds due to barrel chest Lungs: Clear to auscultation bilaterally no crackles or wheezes appreciated Abdomen flat, non-tender, nondistended bowel sounds are normal Extremities: Negative for edema Skin : warm and dry Neuro no focal deficits, oriented to place and Person Psych alert and oriented 2, baseline now IVs and Medications Medications Reviewed: Medications were reviewed in detail Lab and Diagnostics Result Diagram: 01/14/17 0620 01/14/17 06 X-Rays, CTs and MRIs PROCEDURE: CT ANGIO CHEST PULMONARY EMBOLISM ([id number]) 1. No pulmonary emboli. 2. Patchy airspace disease within the bilateral lower lobes and right middle lobe is suggestive of pneumonia. 3. Extensive centrilobular emphysema. 4. Small hiatal hernia. Mild prominence of the distal esophageal wall may be related to esophagitis and clinical correlation is recommended. Dictated by: Kendrick Lockhart M.D. on 01/07/2017 at 12:34 Additional Diagnostics NUTRITION ASSESSMENT: ASSESS: 61 YO M admitted with pneumonia, failure to thrive, neck pain and inability to eat. Pt has refused PEG tube placement in the past but is status post PICC line placed with initiation of TPN 01/08. Per notes, pt has lost 75- 80 lb over the past year, mainly due to throat pain, mucositis, decreased appetite. Pt was able to gain some weight back and then lost the weight again while undergoing chemo and radiation, which he has now completed. He is refusing all PO except for applesauce when oral medication is required. Barium swallow ordered and is pending. PMHX: Right esophageal/oropharyngeal CA, HTN, depression, severe malnutrition. LABS: Reviewed. Phos 5.4. MEDS: Reviewed. Remeron, fentanyl. GI: BM x 1 (01/08). WT: 64.1 kg, BMI 19.0 kg/m2. Admit weight: 64.1 kg. UBW 114.5kg ( 230lbs) DIET: Full liquid diet, Honey thick, Chocolate ensure all trays. Pt refusing PO intake. TPN: 130 g dextrose, 60 g Amino acids and 30 g lipids to provide 982 kcals and 60 g protein per day. EST. NEEDS: ca/wt gain Kcals: 3248-1823 kcal/day (35-40 kcal/kg BW) Pro: 75-115 g/day (1.2-1.8 g/kg BW) Fluids: 0518-4733 mL (1 mL/kcal) NUTRITION DIAGNOSIS: 1) Severe protein/kcal malnutrition related to oropharyngeal CA as evidence by decreased PO intake due to throat pain, severe weight loss and visible muscle /fat loss - PERSISTS. 2) Chewing swallowing difficulties related to mucositis, as evidenced by pt. refusal of PO intake, request by ST for barium swallow. NUTRITION INTERVENTION: 1) Diet per ST recommendations. 2) Recommend continue same TPN over weekend, pending resolution of refeeding risk. Recommend slowly advancing TPN over the next 7-10 day while pay close attention to labs (Mg, Phos, K+, Glu, Etc.) to goal TPN of 350 g dextrose, 120 g Amino Acids and 60 g lipids to provide 2270 kcals and 120 g protein per day. MONITOR / EVAL: TPN tolerance/advancement, PO intake, weights, labs, nutrition status, POC. Continue to monitor per high nutrition risk guidelines. Assessment & Plan This is a 60-year-old white male with history of oropharyngeal cancer who has just recently finished chemoradiation, is having trouble driving because of poor nutrition status. He is in need of a PICC line for nutrition. He is found to have pneumonia and a CT PE protocol in the ER # Intractable pain due to chronic low back pain and also esophageal/ oropharyngeal cancer -- Palliative care is managing the patient's pain regimen. Patient initially required TREE PRUNER Dilaudid -Current pain regimen:fentanyl patch, 50 g Q72H. , oral hydromorphone 8mg PO Q3H PRN # Suspected aspiration pneumonia, POA,resolved -- Patient treated for HCAP versus aspiration pneumonia. Patient at risk of aspiration pneumonia due to dysphagia. -- Urine strep, urine legionella tests are ordered: Negative -- Pro-calcitonin negative, -- Initially treated with Levaquin IV ABX 's at 750 mg IV daily, clindamycin IV was added 01/08 for anaerobic coverage. Patient asymptomatic. Afebrile. No cough. completed 5 day course.Discontinued antibiotics on 01/12. #Brief confusion on 01/13 -due to valium , now discontinued -Patient now at baseline # . Severe protein calorie malnutrition, failure to thrive -- PICC line placed 01/08 -- Speech recommends full liquid diet with honey thickened liquids. -Patient has been on TPN for the last few days. Tolerating well with no side effects. Patient will be discharged on TPN. # depression: -- Restarted home meds escitalopram, Mirtazipine # anxiety disorder: -- Patient takes Valium by mouth. Dose lowered to 5 mg per palliative team due to lethargy. Eventually discontinued due to confusion # Dementia, chronic -- Continue to monitor -Prior oncology note states patient had cognitive decline at baseline #Hypomagnesemia: Resolved CODE STATUS: full code,poa daughter Tarsha Moreno [phone] Disposition: Discharge to correction facility when available, Patient medically optimized for discharge. Daughter appealing discharge. answered daughters questions on the phone GI Prophylaxis: Proton Pump Inhibitor VTE Prophylaxis: Sub-Q Heparin (Unfractionated) Resuscitation Status: CPR: Attempt Resuscitation Norman Dong MD January 15, 2017 17:43
[2017-01-15 20:24] VITALS: BP 107/61; PULSE 69; RESP 18; O2SAT 99
[2017-01-15] MEDS: Total Parenteral Nutrition 1 BAG IV SCH (21:32)
[2017-01-16] MEDS: Heparin 5,000 Unit/mL Inj SUBQ SCH ×2 (00:36→11:48)
[2017-01-16] MEDS: Ondansetron 2 mg/mL 2 mL Inj IVPUSH SCH ×2 (04:46→11:48)
[2017-01-16 05:33] VITALS: BP 128/70; PULSE 74; RESP 16; O2SAT 97
--- NOTE | 2017-01-16 05:47 | NUR ---
activity pt has made many depressive statements about how he does not believe they will find placement for him outside the hospital and that staff are lying to him. nurse has attempted to cheer pt and has told him that SS are working to find pt placement. pts daughter called and talked to nurse about how pt seems sad and she asked that nurse helped pt operate the tv and make sure his tablet was charged so he could use it. nurse helped pt find something to watch on tv and helped pt with his tablet, this did seem to distract him. pt would like to walk the hallways by himself but he remains unaware of where his IV lines are, he is frequently putting himself at risk of having his PICC line pulled out when he gets up unattended. and pt can be unsteady on his feet at times. therefore nurse has told pt for his safety we would like a staff member to walk in the hallways with him. pt has so far declined walking in the hallways with staff but nurse has continued to offer. care continues.
--- NOTE | 2017-01-16 08:37 | NUR ---
[facility] has no appropriate beds for this patient. Updated STOCK CLIPPER Addendum: 01/16/17 at 1045 by ARPITA CLAYTON CM Spoke with Anya allison [employer] and she thinks patient is appropriate and meets criteria. She was connecting with her air cargo ground crew supervisor because there was question about tank terminal gauger goals and planning which I addressed with her in this conversation. She will call back as soon as she can formerly accept. Updated STOCK CLIPPER
[2017-01-16] MEDS ORDERED: 0.9% Sodium Chloride 250 ML ONE (10:21)
--- NOTE | 2017-01-16 10:36 | PCM.PALLBR ---
Palliative Care Recommendation Mr. Colten Moreno is unfortunate 61-year-old gentleman with oropharyngeal cancer, now hospitalized with intractable pain, possible healthcare associated pneumonia, progressive inanition and failure to thrive with associated malnutrition. Palliative medicine consulted to assist with symptom management. Today is Hospital Day #10 for patient. Summary of palliative recommendations: Symptom management (Pain/other) - Pain: On 01/14, Dr. Coronel advised Dr. Almaguer that patient is always more interested in getting opiates and benzodiazepines filled, and Dr. Coronel spends more time discussing this at office visits and trying to cut patient back. He also says that typically pt is requesting IV pain meds vs. topical or oral meds- -even when his throat was not as painful. In view of this information, Palliative Care changed pain regimen on 01/14/11: 1. Today is now day 3 of Fentanyl patch decreased to 25mcg/48 hr. Patient' s body habitus (extremely lean with limited subcutaneous fat) likely limits the utility of topical fentanyl, so will continue to monitor response. 2. Will continue to have oral hydromorphone 8mg PO Q3H PRN available- he is still asking for it infrequently. 3. Anxiety and history of Benzodiazepines use/overuse: agree with med team decision to discontinue diazepam and replace with Remeron, 30 mg QHS. Due to his somewhat paranoid thought, it think it might be better to decrease this to 15mg. Another option to consider at his next facility (or in home environment with supervision from PCP) is to use buspirone 7.5 po BID which help with anxiety without being a benzodiazepine. 4. Today will add low dose antidepressant: 5mg lexapro q day. DPOA/Advanced Directives/POLST- did not review today, given focus on pain management. However, patient was adamant on 01/12 discussion with Palliative Care that he will go through any treatment that keep him alive, for himself and his daughter. Family/emotional support: Daughter Tarsha is pt's HCPOA. Please see Case Management notes for details. ENERGY CONSERVATION DIRECTOR note 01/15 indicates that patient's family has filed a second level appeal of discharge which will likely take several days to sort out. has strongly advised patient and family that he needs to go to a SNF for further strengthening but family has previously been opposed to this. Problems: End of Life Preferences Full code Goals of Care Control of symptoms and nutritional support Disposition To be determined Resuscitation Status Resuscitation Status: CPR: Attempt Resuscitation Total time 35 minutes; >50% face to face with patient and/or family, providing counselling regarding plans and recommendations, and in care coordination with his/her medical teams. Palliative Brief Note Date of Service January 16, [address]. Almaguer returned to reevaluate patient. Prior to visiting, reviewed updated records in the EMR in detail, spoke with his bedside nurse and received sign- out from prior palliative provider. I also reviewed his status with his hospitalist. Dr. Coronel's note of 01/14/17 reviewed and much appreciated Subjective: He is pretty depressed and wants to be home with his family. He keeps blaming himself, saying he was "bad" and "pulled out his (PICC) line" and "they told on me." He thinks this is the reason he is still in the hospital-- because he was "bad." He seems somewhat paranoid, but still more alert than he had been 2 days ago. He also complains of pain and says he is ready to take pills for pain, "since they took the IV pain meds away from me." Exam: His physical exam remained stable. On 01/15, my partner Dr. Hernandez, reviewed with pt our current impressions and expectations of his prognosis. Dr. Hernandez reassured Mr. Moreno that he is over the worst of his treatment, and now with additional nutritional support, he should begin to feel significantly better very soon. Dr. Hernandez also reassured and reminded Mr. Moreno that his cancer has a high likelihood of being cured and encouraged him to focus on this and on his recovery, now that he has completed his chemo and radiation therapy. I again, repeated this encouragement today and urged him not to be so hard on himself. There have been delays in his discharge, but not because he was "behaving badly." Libia Almaguer MD January 16, 2017 10:36 Libia Almaguer MD January 16, 2017 10:36
--- NOTE | 2017-01-16 11:39 | NUR ---
patient is refusing all hygiene care offered, not cooperative
[2017-01-16] MEDS: STERILE IV SCH (11:45)
[2017-01-16] MEDS: FLUCONAZOLE IV SCH (11:45)
--- NOTE | 2017-01-16 12:01 | PCM.PHAPRO ---
Progress Date of Service: January 16, 2017 TPN PARENTERAL NUTRITION ORDERS 9 - Standard Hang Time: 2100 Substrates Total kcal: 1930 AMINO ACIDS 120 g DEXTROSE 250 g Total Volume (mL): 2000 LIPIDS 60 g Sterile Water for Injection QS mL To Infuse Over (hrs): 12 Total Volume 2000 mL At at a rate of (mL/hr): see below Additives Sodium Chloride 80 mEq "typical" daily requirements Sodium Acetate 40 mEq Sodium 50-120mEq Potassium Chloride 40 mEq Potassium 60-120mEq Potassium Phosphate 10 mEq Phosphate 20-40mEq Calcium Gluconate 0 mEq Magnesium 8-32mEq Magnesium Sulfate 24 mEq Calcium 9-22mEq Acetate* 80-120mEq Chloride* 80-120mEq Regular Insulin units *Depending on acid-base status Famotidine 40 mg Multivitamins 1 std dose Insulin Regimen Trace Elements 1 std dose none Thiamine 100 mg Regular Low Intensity Subcut Folic Acid 1 mg Regular Medium Intensity Subcut Ascorbic Acid mg Regular High Intensity Subcut Regular Insulin Infusion Other: Nathen Sauer January 16, 2017 12:01
--- NOTE | 2017-01-16 12:07 | NUR ---
drill instructorpetroleum analyst note: Met with patient in his room 1023. patient is sitting on the bed appearing depressed. "They said they don't have a place for me. Maybe I deserve it". Explained to patient he does not deserve this. patient asked me to bring his Nurse and Student Nurse back into the room so he could apologize to them. The student Nurse came in and accepted his apology. Patient's room has a suitcase packed and lying on the floor. Multiple dirty tissues on the floor. clothing and earphones on the floor. I asked patient if I could help him clean up the room and he allowed me to do do so. All his personal belongings (ie: earphones, laptop, multiple cords, deodorant) we given to the patient. Suitcase was picked up and placed by chair. Dirty tissues were placed in the garbage. Clothing was folded and place on top of suitcase. Explained to patient everyone is working hard on finding him a place to stay. Will continue to follow and provide assistance as needed. Batsheva Ross, RN, OCN drill instructorauthors motivational
[2017-01-16 12:39] VITALS: BP 153/75; PULSE 95; RESP 18; O2SAT 100
--- NOTE | 2017-01-16 13:06 | PCM.DIMED ---
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 Pain seems to be controlled with pain medications adjustment. You also have failure to thrive. PICC line inserted and started on TPN. Please continue TPN at home with home health. Follow-up plan Please follow-up with PCP in 1 week. Please follow-up with oncologist Dr. Coronel in 1-2 week. Follow-up Provider: Chivo Valadez MD Follow-up with PCP in: 1 week Norman Dong MD January 16, 2017 13:06
--- NOTE | 2017-01-16 13:16 | NUR ---
Social Work: Readiness for Discharge Data & Assessment: EMR reviewed. Pt is on day 9 of hospitalization for pneumonia, failure to thrive. Pt is medically ready to discharge, orders have been written. Discharge plan is evolving. UR Specialist notified FIRE ALARM INSTALLER of pt's acceptance to [facility] pending clinical review and LTAC eligibility for MCR. FIRE ALARM INSTALLER updated pt's daughter regarding this information, pt's daughter is not agreeable to [facility] placement. UR Specialist to update Anya at [facility] regarding the patient's evolving discharge plan. Pt's daughter informed FIRE ALARM INSTALLER that she is on her way to [facility] to assist pt with needs after discharge. Daughter had spoken with MD Coronel regarding pt's discharge plan, stated Homer believes that pt will only need a few weeks of TPN and is agreeable to pt discharging home to his mother's house with TPN through [facility], HH through [facility], and family support. Daughter Tarsha stated understanding that pt will not be able to be admitted from home to [facility] if the management of TPN is too difficult. FIRE ALARM INSTALLER confirmed this information with MD Coronel and [facility] FIRE ALARM INSTALLER Antony. Antony confirmed that MD Coronel believes pt will be able to discharge home with TPN since his daughter will be able to coordinate family support after hospitalization. MD Coronel will follow pt with [facility] for TPN needs. FIRE ALARM INSTALLER spoke with [place] Nathan, liaison with [facility], regarding pt's discharge plan. Cuba is agreeable to pt discharging home with [facility] because daughter Tarsha is available to assist pt and coordinate family support. [place] confirmed with [facility] pharmacist Genet that TPN will not be able to be mixed and ready until tomorrow morning. FIRE ALARM INSTALLER informed daughter of this, daughter requested she update pt. FIRE ALARM INSTALLER spoke with Hilary Damon, [facility] liaison, regarding pt's discharge plan. FIRE ALARM INSTALLER informed Hilary that pt will be discharging tomorrow. FIRE ALARM INSTALLER faxed orders, F2F, and instructions to [phone]. FIRE ALARM INSTALLER updated service address and contact phone number with Hilary. Pt to discharge with [facility] services. Plan: Pt will likely d/c home tomorrow morning with TPN through [facility] and [facility]. All updated and agreeable to plan. Alicia Guevara, FIRE ALARM INSTALLER
--- NOTE | 2017-01-16 13:17 | PCM.DC.MED ---
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 No pulmonary emboli. 2. Patchy airspace disease within the bilateral lower lobes and right middle lobe is suggestive of pneumonia. 3. Extensive centrilobular emphysema. 4. Small hiatal hernia. Mild prominence of the distal esophageal wall may be related to esophagitis and clinical correlation is recommended. Dictated by: Kendrick Lockhart M.D. on 01/07/2017 at 12:34 Other Diagnostics NUTRITION ASSESSMENT: ASSESS: 61 YO M admitted with pneumonia, failure to thrive, neck pain and inability to eat. Pt has refused PEG tube placement in the past but is status post PICC line placed with initiation of TPN 01/08. Per notes, pt has lost 75- 80 lb over the past year, mainly due to throat pain, mucositis, decreased appetite. Pt was able to gain some weight back and then lost the weight again while undergoing chemo and radiation, which he has now completed. He is refusing all PO except for applesauce when oral medication is required. Barium swallow ordered and is pending. PMHX: Right esophageal/oropharyngeal CA, HTN, depression, severe malnutrition. LABS: Reviewed. Phos 5.4. MEDS: Reviewed. Remeron, fentanyl. GI: BM x 1 (01/08). WT: 64.1 kg, BMI 19.0 kg/m2. Admit weight: 64.1 kg. UBW 114.5kg ( 230lbs) DIET: Full liquid diet, Honey thick, Chocolate ensure all trays. Pt refusing PO intake. TPN: 130 g dextrose, 60 g Amino acids and 30 g lipids to provide 982 kcals and 60 g protein per day. EST. NEEDS: ca/wt gain Kcals: 4017-1243 kcal/day (35-40 kcal/kg BW) Pro: 75-115 g/day (1.2-1.8 g/kg BW) Fluids: 2981-8031 mL (1 mL/kcal) NUTRITION DIAGNOSIS: 1) Severe protein/kcal malnutrition related to oropharyngeal CA as evidence by decreased PO intake due to throat pain, severe weight loss and visible muscle /fat loss - PERSISTS. 2) Chewing swallowing difficulties related to mucositis, as evidenced by pt. refusal of PO intake, request by ST for barium swallow. NUTRITION INTERVENTION: 1) Diet per ST recommendations. 2) Recommend continue same TPN over weekend, pending resolution of refeeding risk. Recommend slowly advancing TPN over the next 7-10 day while pay close attention to labs (Mg, Phos, K+, Glu, Etc.) to goal TPN of 350 g dextrose, 120 g Amino Acids and 60 g lipids to provide 2270 kcals and 120 g protein per day. MONITOR / EVAL: TPN tolerance/advancement, PO intake, weights, labs, nutrition status, POC. Continue to monitor per high nutrition risk guidelines. Brief History Per admission H&P: 61-year-old gentleman with locally advanced head and neck cancer undergoing chemoradiation. He has just finished his last set OF treatments. States that after today's radiation and chemotherapy, he felt severe pain in his neck. He has not been eating well. He states that he is making sure to drink ensure that having trouble eating foods and taking his pills. Patient has a history of dementia and is known to make up stories about health history and personal details. He is in need of a PICC line(patient will not accept a PEG tube, his daughter specifically talked to the ER staff about not putting in a PEG tube). His oncologist Dr. Kyrie Smiley is also aware of the situation and he recommends that patient receives her PICC line for temporary nutrition. Patient is in agreement with this plan. [facility] will not take patient back with the PICC line, he may need to be sent to life care. Patient is aware of this situation. Palliative medicine consulted to assist with symptom management/pain control. We are quite familiar with him, having followed closely during his last admission. Prior to visiting, I reviewed his updated records in the EMR in detail and spoke with his nurse. When I arrived, he is curled up in bed under the blankets. Sleeping but awakens easily. Continues to complain of pain 10/10 particularly in the throat. Stated that he had been using oral hydromorphone for pain- he cannot recall for certain but thinks that he was taking 8 mg of hydromorphone at least 4 or 5 times a day. He is not sure if he has been using a fentanyl patch previously, though his med reconciliation would suggest he was. He was discharged on hydromorphone, 8 mg every 4 hours last admission. Do note that he is somewhat forgetful and confused at times so his recall of history is questionable. He denied any shortness of breath, chest pain, abdominal pain, nausea. Hospital Course This is a 60-year-old white male with history of oropharyngeal cancer who has just recently finished chemoradiation, is having trouble driving because of poor nutrition status. He is in need of a PICC line for nutrition. He is found to have pneumonia and a CT PE protocol in the ER # Intractable pain due to chronic low back pain and also esophageal/ oropharyngeal cancer -- Palliative care is managing the patient's pain regimen. Patient initially required FILM DRYING MACHINE OPERATOR Dilaudid -Current pain regimen:fentanyl patch, 50 g Q72H. , oral hydromorphone 8mg PO Q3H PRN # Suspected aspiration pneumonia, POA,resolved -- Patient treated for HCAP versus aspiration pneumonia. Patient at risk of aspiration pneumonia due to dysphagia. -- Urine strep, urine legionella tests are ordered: Negative -- Pro-calcitonin negative, -- Initially treated with Levaquin IV ABX 's at 750 mg IV daily, clindamycin IV was added 01/08 for anaerobic coverage. Patient asymptomatic. Afebrile. No cough. completed 5 day course.Discontinued antibiotics on 01/12. #Brief confusion on 01/13 -due to valium , now discontinued -Patient now at baseline # . Severe protein calorie malnutrition, failure to thrive -- PICC line placed 01/08 -- Speech recommends full liquid diet with honey thickened liquids. -Patient has been on TPN for the last few days. Tolerating well with no side effects. Patient will be discharged on TPN.patient may eventually need PEG tube if dysphagia persists . # oral thrush,resolved -completed diflucan IV # depression: -- Restarted home meds escitalopram, Mirtazipine # anxiety disorder: -- Patient takes Valium by mouth. Dose lowered to 5 mg per palliative team due to lethargy. Eventually discontinued due to confusion # Dementia, chronic -Prior oncology note states patient had cognitive decline at baseline #Hypomagnesemia: Resolved CODE STATUS: full code,poa daughter Tarsha Moreno [phone] Disposition: Discharge to home with HH,daughter and HH to manage TPN with the infusion company Patient medically optimized for discharge. Daughter appealled discharge. now agrees . answered daughters questions on prior conversation Exam Vital Signs (Last) Date Time Temp Pulse Resp B/P Pulse Ox O2 Delivery O2 Flow Rate FiO2 01/16/17 12:39 36.7 95 18 153/75 100 Room Air Exam Physical exam: No acute distress HEENT: Normocephalic, atraumatic ,no oral thrush Heart: Regular rate and rhythm, distant sounds due to barrel chest Lungs: Clear to auscultation bilaterally no crackles or wheezes appreciated Abdomen flat, non-tender, nondistended bowel sounds are normal Extremities: Negative for edema Skin : warm and dry Neuro no focal deficits, oriented to place and Person Psych alert and oriented 2, baseline now Test 01/07/17 11:30 01/07/17 23:11 01/09/17 05:10 01/14/17 06:20 Prothrombin Time 12.9sec (8.1-12.5) Prothromb Time International Ratio 1.20ratio D-Dimer 2.82mg/L FEU (<0.50) Troponin T < 0.010ug/L (0.0-0.011) Hold Coleman Top Tube Received (Received) Urine Legionella pneumophilia Ag Negative (Negative) Reticulocyte Count,Calculated 0.8% (0.6-2.6) Iron Level 77ug/dL (35-150) Total Iron Binding Capacity 154ug/dL (250-450) Percent Iron Saturation 50%sat (15-50) Unsaturated Iron Binding 76.9ug/dL Ferritin 291ng/mL (30-400) Vitamin B12 Level >1999pg/mL (211-946) Folate 13.5ng/mL (>3.0) White Blood Count 2.8th/mm3 (3.8-10.1) Red Blood Count 2.71mil/mm3 (4.40-5.80) Hemoglobin 8.6g/dL (13.8-17.2) Hematocrit 25.2% (41.0-50.0) Mean Corpuscular Volume 93.0fL (81-100) Mean Corpuscular Hemoglobin 31.7pg (27.0-35.0) Mean Corpuscular Hemoglobin Concent 34.1% (32.0-37.0) Red Cell Distribution Width 15.1% (12.3-15.4) Platelet Count 178bil/L (150-400) Neutrophils (%) (Auto) 61.9% (40-74) Lymphocytes (%) (Auto) 11.6% (14-46) Monocytes (%) (Auto) 18.2% (4-12) Eosinophils (%) (Auto) 7.6% (0-5) Basophils (%) (Auto) 0.7% (0-3) Sodium Level 137mEq/L (134-144) Potassium Level 4.5mEq/L (3.5-5.2) Chloride Level 101mEq/L (97-108) Carbon Dioxide Level 23mmol/L (18-29) Blood Urea Nitrogen 25mg/dL (8-27) Creatinine 1.04mg/dL (0.76-1.27) Estimat Glomerular Filtration Rate 77mL/min (>59) Glucose Level 105mg/dL (60-99) Calcium Level 9.1mg/dL (8.5-10.1) Phosphorus Level 4.9mg/dL (2.5-4.9) Magnesium Level 1.7mg/dL (1.6-2.6) Total Bilirubin 0.3mg/dL (0.0-1.2) Aspartate Amino Transf (AST/SGOT) 10U/L (0-50) Alanine Aminotransferase (ALT/SGPT) 5U/L (0-44) Alkaline Phosphatase 48U/L (25-160) Total Protein 5.5g/dL (6.4-8.4) Albumin 3.0g/dL (3.4-5.0) Procalcitonin 0.06ng/mL (0.00-0.08) Test 01/14/17 13:56 Urine Color Straw (YELLOW) Urine Appearance Hazy (CLEAR,HAZY) Urine pH 6.0 (5.0-8.0) Urine Specific [place] 1.020 (1.003-1.035) Urine Protein Negativemg/dL (NEG,TRACE) Urine Glucose (UA) Negativemg/dL (NEGATIVE) Urine Ketones Negativemg/dL (NEGATIVE) Urine Occult Blood Negative (NEGATIVE) Urine Nitrite Negative (NEGATIVE) Urine Bilirubin Negative (NEGATIVE) Urine Urobilinogen Normalmg/dL (NORMAL) Urine Leukocyte Esterase Negative (NEGATIVE) Urine RBC 0-2/hpf (0-2) Urine WBC 0-5/hpf (0-5) Urine Epithelial Cells Occasional/hpf (NONE-MOD) Urine Crystals None seen (NONE SEEN) Urine Bacteria None/hpf (NONE-FEW) Urine Hyaline Casts Occasional/lpf (NONE) Urine Granular Casts None seen (NONE SEEN) Urine Waxy Casts None seen (NONE SEEN) Urine Red Blood Cell Casts None seen (NONE SEEN) Urine White Blood Cell Casts None seen (NONE SEEN) Urine Mucus None seen (None Seen) Urine Trichomonas None seen (NONE SEEN) Urine Yeast None (NONE SEEN) Urinalysis Comment None Urine Culture Reflexed Not indicated Discharge Medications Discharge Medications ([Med Plus 2.0]) 90 ML PO TID (Reported) ([Fentanyl]) 1 PATCH PATCH 1 PATCH TOPICAL Q72H Prescribed by: AZAR SAM MD Ascorbic Acid (Vitamin C) 1,000 Mg Tab.chew 1,000 MG PO DAILY (Reported) Aspirin (Aspirin) 325 Mg Tablet 325 MG PO DAILY (Reported) Escitalopram Oxalate (Escitalopram Oxalate) 5 Mg Tablet 5 MG PO DAILY (Reported ) Gabapentin (Neurontin) 300 Mg Capsule 600 MG PO HS Prescribed by: VASILE NICHOLE MD Mineral Oil/Pet Hy-Phl (Aquaphor) 1 Applic/Gm Oint 1 APPLIC TOP BID (Reported) Mirtazapine (Mirtazapine) 15 Mg Tablet 30 MG PO HS Prescribed by: VASILE NICHOLE MD Multivits-Min/FA/K/Lycopene (One-A-Day Men's 50+ Tablet) 1 Each Tablet 1 TABLET PO DAILY (Reported) Pantoprazole DR (Pantoprazole DR) 20 Mg Tablet.dr 20 MG PO DAILY Prescribed by: AZAR SAM MD Polyethylene Glycol 3350 (Polyethylene Glycol 3350) 17 Gm Powd.pack 17 GM PO DAILY (Reported) Prednisolone Acetate (Prednisolone Acetate) 5 Ml Drops.susp 1 DROP BOTH_EYES QID (Reported) Sennosides (Senna) 8.6 Mg Tablet 17.2 MG PO BID Prescribed by: VASILE NICHOLE MD As needed Acetaminophen (Acetaminophen) 325 Mg Capsule 650 MG PO Q4H PRN PRN For Pain ( Reported) Hydromorphone (Dilaudid) 2 Mg Tablet 8 MG PO Q3 PRN PRN For Pain Prescribed by: KYLEIGH FINCH DO Ondansetron ODT (Zofran ODT) 8 Mg Tablet 8 MG SL Q8H PRN PRN For Nausea ( Reported) Oxymetazoline HCl (Nasal [place] Sinus) 30 Ml [place] 1-2 SPRAYS NS QID PRN PRN For Congestion (Reported) Prochlorperazine Maleate (Compazine) 10 Mg Tablet 10 MG PO Q4H PRN PRN For Nausea (Reported) Followup Plan Disposition: home with Follow-up plan Please follow-up with PCP in 1 week. Please follow-up with oncologist Dr. Coronel in 1-2 week. Discharge Diet: Other (TPN as prescribed ,may also get honey thick diet orally ) Discharge Activity: Limited until seen by PCP Patient Instructions You were hospitalized due to intractable pain. Pain seems to be controlled with pain medications adjustment. You also have failure to thrive. PICC line inserted and started on TPN. Please continue TPN at home with home health. Follow-up Provider: Chivo Valadez MD Follow-up with PCP in: 1 week Time spent 35 minutes copies to: Chivo Valadez MD, Melaku MD January 16, 2017 13:17
--- NOTE | 2017-01-16 13:51 | NUR ---
Faxed [facility] transport form to [facility] and requested transport to home @ [phone]. Patient will need to be in the main lobby for this transport. Updated SPINNING FRAME TENDER
--- NOTE | 2017-01-16 14:38 | NUR ---
Social Work: Discharge Data & Assessment: EMR reviewed. Pt is on day 9 of hospitalization for pneumonia, failure to thrive. Pt is medically ready to discharge, orders have been written. [place], liaison from [facility], informed LOADING UNIT OPERATOR that they will be able to open pt tonight after pt's daughter arrives versus tomorrow morning. Per [place], pt is on nocturnal TPN to begin at home tonight. LOADING UNIT OPERATOR updated [facility] regarding pt's discharge. LOADING UNIT OPERATOR spoke with Hilary Damon, [facility] liaison, regarding pt's updated discharge plan. [facility] confirms that pt will be opening on Thursday01/16/17. UR Specialist coordinated [facility] transportation for last picker at 1530. Pt to discharge home with [facility] TPN and [facility] RN PT ST via [facility] transportation at 1530. LOADING UNIT OPERATOR updated Tarsha regarding pt's discharge plan, Tarsha agreeable to plan. RN, UC, pt/family all updated and agreeable to plan. Assessment: Pt who will need TPN and [facility] RN PT ST at discharge. Plan: Pt will discharge this evening with TPN [facility] and [facility] via [facility] transportation at 1530. RN, UC, pt/family all updated and agreeable to plan. MARK ANTHONY Mae Addendum: 01/16/17 at 1456 by RICHIE PELAYO SS UR Specialist to fax discharge orders and instructions to pt's JHONNY Aj. MARK ANTHONY Mae
[2017-01-16] MEDS ORDERED: HYDR8TAB PO (15:01)
--- NOTE | 2017-01-16 16:27 | NUR ---
Discharge Pt discharged to home with HH and [facility]. A&O - answering appropriately but continuing to be forgetful. BRANDI. Double lumen PICC SL. PIV dcd intact by SN. Hard copy scripts provided to pt. CareNotes and instructions provided on dc dx, new medications and s/sx to seek medical attention for. All personal belongings in hand at dc. Pt medicated prior to dc with Dilaudid and new Fentanyl patch. Pt left without any unanswered questions and was wheeled out to meet taxi by SN. Discharged at 1530.
--- NOTE | 2017-01-23 09:08 | NUR ---
have received multiple calls from family this week regarding various care concerns. Today pt's is concerned as it is a lot of work for the brother to give pt TPN at night. requested a nurse to come to the house at night to do the TPN. Advised they would need to hire a private nurse/caregiver or call pt's physician to possibly get into a SNF.
[2017-02-03] MEDS ORDERED: HYDR4TAB PO (14:22)
[2017-02-13] MEDS ORDERED: OMEP20CA11 PO (09:13)
--- NOTE | 2017-02-16 13:17 | NUR ---
Palliative care note- follow up note D/A: Note that pt was discharged home to care of his mother with management of his TPN through family assistance and home health and infusion company. Not able to find pt mother name or phone number. Call to pt be [place] ) and have left her a message asking for her to call with name and number of pt mother. Have indicated that this worker wishes to conduct a follow up phone call to pt and see how he is doing. Note that Dr. Coronel indicated in his last note, end of January, that he wished for pt to have another barium swallow and ST evaluation. Do not see that this has happened yet. P: Palliative care to call pt at his mothers home. Isaura MARIO, CCM
--- NOTE | 2017-02-17 14:12 | NUR ---
Palliative care note D/A: Phone call from pt dtr Tarsha who kindly leaves message that pt mother phone number is [phone]. Phone call to pt mother and discuss with Colten at length. He sounds very strong and vital and notes that things are going exceedingly well. He remains on the TPN and has completed his barium swallow and continues to work with ST through [facility]. He see's speech once a week and they practice exercises together. He notes that he can only remain on the TPN for one more week as he is in an "untenable" situation. He notes he is not able to do his own TPN. He has an appt with Dr. Coronel on 02/25/17 and plans to indicate that he can no longer continue the TPN at that time. He is enjoying playing with his 125 pound Akita puppy. P: Palliative care to follow. Isaura MARIO, CCM
== END 2017-01-16 15:30 | disposition home health service (06) | DRG 177 ==
LOC: EDBD 10:57 → EDUNIT# 10:57 → SED 10:57 → OSC 14:29
PROVIDERS: ADMIT Family Medicine; ATTEND Family Medicine
PROC: 3E0436Z Introduction of Nutritional Substance into Central Vein, Percutaneous Approach (ICD-10-PCS; principal; 2017-01-08)
DX: J69.0 Pneumonitis due to inhalation of food and vomit (principal); E43 Unspecified severe protein-calorie malnutrition; Z68.1 Body mass index [BMI] 19.9 or less, adult; B37.0 Candidal stomatitis; C10.9 Malignant neoplasm of oropharynx, unspecified; R62.7 Adult failure to thrive; Z92.21 Personal history of antineoplastic chemotherapy; Z79.82 Long term (current) use of aspirin; Z87.891 Personal history of nicotine dependence; Z92.3 Personal history of irradiation; F41.9 Anxiety disorder, unspecified; G89.3 Neoplasm related pain (acute) (chronic); M54.5 Low back pain; F32.9 Major depressive disorder, single episode, unspecified; Z51.5 Encounter for palliative care; E83.42 Hypomagnesemia; F03.90 Unspecified dementia, unspecified severity, without behavioral disturbance, psychotic disturbance, mood disturbance, and anxiety

== ENCOUNTER → 2017-03-04 | Day surgery (SDC) | payer MEDICARE, MEDICAID ==
[~2017-03-04] VITALS: Ht 182.9 cm; Wt 68.5 kg
[~2017-03-04] MED LIST changes: +0.9% Sodium Chloride 1,000 ML IV ONE; -ACET-171 PO; -ASCO100089 PO; +DIAZ10TA3 PO; -DIAZ5TAB3 PO; -DIF100A PO; +DOXE10OR2 PO; -ESCI5TAB10 PO; +FENT1PAT7 TRANSDERM; +FENT1PAT9 TRANSDERM; -Fentanyl TOPICAL; +GABA-504 PO; -GABA300C PO; -HYDR2TAB27 PO; +HYDR8TAB PO; +IPRA15SP NS; +LACT-38 PO; +Lactated Ringer's 1,000 ML IV ONE; -MED PLUS 2.0 PO; +OMEP20CA11 PO; -ONDA8TAB7 SL; +OXYC-474 PO; -OXYM30SP18 NS; -PANT40TA3 PO; +PRED1DRO OD; -PRED5DRO6 BOTH_EYES; +Propofol 10,000 mCg/mL 20 mL Inj ONE; -SENN-133 PO; -SODI51CR8 DENTAL; -SUCR1ORA PO; -ZINC50TA56 PO; -[UNRECOGNIZED DRUG - CODE] PO; +fentaNYL-PF 50 mCg/mL 2 mL Inj ONE
--- NOTE | 2017-03-04 08:07 | PCM.HPANE ---
Patient Data Surgeon Admitting Provider: Attending Provider:Hari Leigh MD Primary Care Physician:Justo Bedoya MD Other Provider:Vladimir Douglas Anesthesia Reason for Visit Esophageal Stricture Ht/WT & BMI Body Mass Index Allergies Coded Allergies: No Known Allergies (Unverified , 03/03/17) Past Anesthesia History Anesthesia History: Denies:: Anesthesia Reactions, Fam Anesthesia Reaction, Fam Malignant Hypertherm, Malignant Hyperthermia Diabetes History Hx Diabetes?: No MRSA MRSA: No Medications Blood Thinner: Aspirin Reported Medications Oxycodone (Roxicodone)5 Mg Tablet5 Mg PO Q4H PRN For Pain Ref 0 03/04/17 Omeprazole 20 Mg Capsule.dr20 Mg PO DAILY Ref 0 03/04/17 Ranitidine 150 Mg Ujlngcn322 Mg PO BID Ref 0 03/03/17 Prednisolone Acetate (Pred Forte)1 Ml Drops.susp1 Ml OD BID 03/03/17 Gabapentin 400 Mg Ucctzlm200 Mg PO HS Ref 0 03/03/17 Lactose-Free Food (Ensure Plus)237 Ml Qivhar058 Ml PO DAILY 03/03/17 Doxepin Oral Soln 10 Mg/1 Ml Oral.conc10 Mg PO HS 03/03/17 Diazepam 10 Mg Xhfgei23 Mg PO HS PRN For Anxiety Ref 0 03/03/17 Polyethylene Glycol 3350 17 Gm Powd.pack17 Gm PO DAILY 08/24/16 Aspirin 325 Mg Mvxcaw961 Mg PO DAILY #1 BOTTLE 08/24/16 Discontinued Reported Medications Hydromorphone 8 Mg Tablet8 Mg PO Q4HRS PRN Pain Ref 0 03/03/17 Fentanyl 50 mcg/hr Patch 50 mcg/hr Patch.td721 Patch TRANSDERM Q3D Ref 0 03/03/17 Fentanyl 25 mcg/hr Patch 1 Each Patch.td721 Patch TRANSDERM Q3D Ref 0 03/03/17 Omeprazole 20 Mg Capsule.dr20 Mg PO DAILY #30 CAPSULE Ref 6 02/13/17 Hydromorphone 4 Mg Tablet4 Mg PO q3hrs PRN Pain Ref 0 02/03/17 Acetaminophen 325 Mg Mffdpnj006 Mg PO Q4H PRN For Pain 01/07/17 Mineral Oil/Pet Hy-Phl (Aquaphor)1 Applic/Gm Oint1 Applic TOP BID 01/07/17 [Med Plus 2.0] No Conflict Check90 Ml PO TID 12/29/16 Prochlorperazine Maleate (Compazine)10 Mg Hukapy58 Mg PO Q4H PRN For Nausea #30 TABLET Ref 4 08/26/16 Ondansetron ODT (Zofran ODT)8 Mg Tablet8 Mg SL Q8H PRN For Nausea #30 TABLET Ref 4 08/26/16 Prednisolone Acetate 5 Ml Drops.susp1 Drop BOTH_EYES QID 08/24/16 Escitalopram Oxalate 5 Mg Tablet5 Mg PO DAILY 30 Days Ref 0 08/24/16 Oxymetazoline HCl (Nasal [place] Sinus)30 Ml Spray1-2 Sprays NS QID PRN For Congestion 08/24/16 Multivits-Min/FA/K/Lycopene (One-A-Day Men's 50+ Tablet)1 Each Tablet1 Tablet PO DAILY 08/24/16 Ascorbic Acid (Vitamin C)1,000 Mg Tab.chew1,000 Mg PO DAILY Ref 0 08/24/16 Discontinued Scripts Mirtazapine 15 Mg Pbaiop77 Mg PO HS #30 TABLET Prov:Isac Lewis MD 12/13/16 [Fentanyl] (Duragesic 25 mCg/Hr Patch)1 PATCH PATCH No Conflict Check1 Patch TOPICAL Q72H #10 Prov:Norman Dong MD 01/15/17 Sennosides (Senna)8.6 Mg Qauwlp65.2 Mg PO BID #60 TABLET Prov:Isac Lewis MD 12/13/16 Gabapentin (Neurontin)300 Mg Ecmhavx486 Mg PO HS #30 CAPSULE Prov:Isac Lewis MD 12/13/16 History History of ENT Problems?: Yes HEENT History: Positive for:: Cataracts 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, on dysphagia diet) Sinus Problem Denture Type: None Teeth Condition: Within Normal Limits Hx of Heart Problems?: Yes Cardiovascular History: Positive for:: Chest Pain (current admission) Hypertension Denies:: Cardiac Surgery Congestive Heart Failure Edema Heart Murmur Irregular Heartbeat Pacemaker Thrombophlebitis Hx of Respiratory Problem?: Yes Respiratory History: Positive for:: Hemoptysis Pneumonia (current dx) Denies:: Asthma COPD Chest Surgery Dyspnea Emphysema Tuberculosis Hx Neurologic Problems?: Yes Neurological History: Positive for:: Dementia Dizziness Headaches Denies:: Alzheimer's Disease CVA Parkinson's Disease Seizures Hx of GI Problems?: Yes Hx of Problems?: No Genitourinary History: Denies:: HX of Hemodialysis Kidney Stones Urinary Tract Infection HX of Peritoneal Dialysis: No Male Hx: Denies:: Prostate Problems Scrotal Mass Testicular Surgery Hx Musculoskeletal Problems?: Yes Musculoskeletal History: Positive for:: Back Injury Joint Replacement (knee) Musculoskeletal Trauma Hx of Psycho/Social Problems?: Yes Psycho Social History: Positive for:: Anxiety Hx Depression Denies:: Bipolar Disorder Suicide Attempt Hx Surgeries?: Yes (bilat knee scopes, elbows, ) Hx Any Other Health Problems?: Yes Other History: Positive for:: Cancer (skin ca (scalp and neck), oropharengeal cell carcinoma) Hospitalization (knees, elbows, wrists) Denies:: Thyroid Disease History Blood Transfusions: Denies:: Blood Transfuse Reaction Blood Transfusions Hx Diabetes: No Hx Alcohol Use: NoHx Substance Use: No Smoking Status: Former Smoker Have You Smoked inLast 12 mo: No Stop/Bang Risk Assessment Category Category 1A: Patient has history of documented sleep apnea, and HAS NOT received any narcotic, sedative or anesthesia administration during this stay. Category 1B: Patient has history of documented sleep apnea, and HAS received any narcotic , sedative or anesthesia administration during this stay Category 2: Patient has SUSPECTED Obstructive Sleep Apnea, and HAS received any narcotic , sedative or anesthesia administration during this stay. Category 3: Patient has SUSPECTED Obstructive Sleep Apnea and HAS NOT received narcotic, sedative or anesthesia administration during this stay. Category 4: Outpatient in Procedural Areas with known sleep apnea or who screen positive for High Risk via the STOP/BANG questionnaire. Exam Exam General Appearance: Alert, Oriented X3, Cooperative HEENT/AIRWAY: MP 2 Lungs: Clear to Auscultation Heart: Exam Unremarkable Plan Impression Patient chart reviewed, patient interviewed and anesthestic plan with risks, benefits, and alternatives discussed, and informed consent obtained. ASA Physical Status: ASA2 Mod Systemic Disease Anesthetic Plan: MAC Bene/Risks/Altern/Consents: Yes HP Complete Prior to Induction: Yes Doroteo Pineda MD Mar 04, 2017 08:07
[2017-03-04 10:46] VITALS: BP 119/74; PULSE 72; RESP 16; O2SAT 96
[2017-03-04 12:04] VITALS: BP 103/65; PULSE 72; RESP 13; O2SAT 98
[2017-03-04 12:13] VITALS: BP 111/69; PULSE 62; RESP 15; O2SAT 100
[2017-03-04 12:23] VITALS: BP 115/66; PULSE 63; RESP 15; O2SAT 97
--- NOTE | 2017-03-04 12:37 | PCM.ANEP1 ---
Post Anesthesia PACU Phase 1 Assessment Vital Signs Vital Signs Date Time Temp Pulse Resp B/P Pulse Ox O2 Delivery O2 Flow Rate FiO2 03/04/17 12:04 72 13 103/65 98 Room Air 03/04/17 10:46 37.2 72 16 119/74 96 Room Air Anesthetic Administered: GA Level of Alertness: Awake, talking PAZ's with Equal Strength: Yes Pain: No Nausea or Vomiting: No CV Function & Hydration Stable: Yes Airway Device: Oxygen Delivery: Room Air Lungs: Normal Air Movement PACU Phase 2 Assessment Complications: No Follow up Care: No Patient Instructions Provided: N/A Doroteo Pineda MD Mar 04, 2017 12:37
--- NOTE | 2017-03-04 13:00 | ENDO ---
[address] [address] ENDOSCOPY PROCEDURE PATIENT: KRYSTIN GIBBS : 1955 MR#: [id number] ADMIT: 03/04/2017 JOB ID: [id number] DATE: 03/04/2017 PRIMARY PROVIDER: Justo Bedoya M.D. PROCEDURE: Esophagogastroduodenoscopy with wire guided dilatation. 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 He has been off therapy for about a month now and has had persistent sticking of dry solids in his proximal esophagus. He had an abnormal barium esophagram which demonstrated the barium tablet getting held up proximally. This was thought to possibly be related to a web. No odynophagia. EQUIPMENT: GIF 160. SEDATION: Monitored anesthesia as provided by Dr. Get Pineda. COMPLICATIONS: None identified. PROCEDURAL INFORMATION: After the risks and benefits were explained, written and verbal informed consent was obtained. The patient was brought into the endoscopy suite and placed into the left lateral decubitus position. Sedation was achieved as above. The scope introduced into the mouth through the bite block, and advanced to the second portion of the duodenum. The scope was slowly withdrawn to carefully examine the mucosa for any defects or lesions. Retroflexed views were accomplished in the stomach. The stomach was decompressed. The stomach was not fully decompressed, but a Savary wire was left in place. The scope was then withdrawn carefully examining the mucosa for any defects or lesions. I dilated using a 45-Kenyan well lubricated Savary dilator. I asked for a 48-Kenyan to follow but was handed a 42-Kenyan inadvertently. The 42-Kenyan passed very easily and we then located the correct dilator, i.e., 48-Kenyan and passed this over the wire successfully. There was a small amount of heme on the 48-Kenyan dilator. I did not appreciate any significant resistance during any of these efforts. The dilator and wire were removed en brad. The procedure was then terminated. The patient tolerated the procedure reasonably well. FINDINGS: 1. Duodenum: No significant pathology from the bulb through to the second portion. 2. Stomach: No ulcers, no mass lesions. No outlet obstruction. Retroflexed views were unremarkable. 3. Esophagus: The squamocolumnar junction correlated with the top of the gastric folds. The GE junction was at about 43 cm from the incisors. In the proximal esophagus, I did not identify any inflammation. No infectious pathology. No neoplasia. No stricture. I did not see an obvious web or ring. The endoscope easily passed through this location without any significant impediment. We dilated up to 48-Kenyan empirically. There was a small amount of heme on the dilator as described above. The patient tolerated all this very well. He had been on his aspirin up until this morning. We elected to not pursue any further dilatation. ENDOSCOPIC DIAGNOSIS: 1. Empiric esophageal dilatation. 2. Otherwise visually unremarkable esophagogastroduodenoscopy. RECOMMENDATIONS: 1. Continue Prilosec for control of reflux. 2. Continue with diet as tolerated using well chewed food and plenty of fluids on hand at mealtimes. 3. Followup in my office in the next approximately four weeks to review clinical response.
== END | disposition home or self-care (01) ==
LOC: END 00:40
PROVIDERS: ATTEND Internal Medicine Gastroenterology
DX: K22.2 Esophageal obstruction (principal); C09.0 Malignant neoplasm of tonsillar fossa; Z92.3 Personal history of irradiation; Z92.21 Personal history of antineoplastic chemotherapy; F41.9 Anxiety disorder, unspecified; F32.9 Major depressive disorder, single episode, unspecified; F17.210 Nicotine dependence, cigarettes, uncomplicated; K21.9 Gastro-esophageal reflux disease without esophagitis; F10.21 Alcohol dependence, in remission; G47.00 Insomnia, unspecified; Z79.82 Long term (current) use of aspirin
CPT/HCPCS: 43248; J2250; J3010; J7030